=== PATIENT | female | born 1935 | race Caucasian/White ===

== ENCOUNTER 2022-11-11 22:56 | Observation (INO) | payer MEDICARE ==
[2022-11-11] MEDS ORDERED: MORPHINE SULFATE 2 MG/ML SYRINGE IVP STA (23:03)
--- NOTE | 2022-11-11 23:17 | ED ---
Lower Extremity Injury HPI - General Source: patient, EMS, RN notes reviewed Mode of arrival: EMS Limitations: no limitations <Sweta Huffman - Last Filed: 11/12/22 04:34> <Barak Willson - Last Filed: 11/12/22 06:08> - General Chief Complaint: Extremity Injury, Lower Stated Complaint: Right Hip Pain Time Seen by Provider: 11/11/22 22:59 - History of Present Illness Initial Comments: This is an 87-year-old female who presents emergency department for right hip pain. Patient states that she fell approximately one month ago he was experiencing low back pain. She had x-rays done of the lower back revealing no acute abnormalities. She has since started to experience pain to the right hip and femur area. However, tonight, the pain became so severe that she called EMS. She was given 100 and cc of fentanyl in route with little to no relief in pain. She is also starting to get nauseous from the pain and required 4 mg of Zofran. Her back pain is still present, however it is not as bothersome as the hip pain. States that she is unable to walk at this point. Patient lives alone, however her son does live near her. When the patient's son arrived, he said that she had been fine all day and was not complaining of any pain. He is unsure what may have happened this evening. Denies any fevers, chills, sore throat, cough, dyspnea, chest pain, palpitations, abdominal pain, nausea, vomiting, diarrhea, back pain, or headaches. (Sweta Huffman) - Related Data Home Medications Medication Instructions Recorded Confirmed Ergocalciferol [Vitamin D2] 50,000 unit PO Q14D 09/19/15 09/20/15 Omeprazole [PriLOSEC] 20 mg PO AC-BRKFST 09/19/15 09/20/15 Ondansetron [Zofran] 4 mg PO Q8HR 09/19/15 09/20/15 Simvastatin [Zocor] 20 mg PO DAILY 09/19/15 09/20/15 atenoloL [Tenormin] 12.5 mg PO HS 09/19/15 09/20/15 traMADol HCl [Ultram] 50 mg PO BID 09/19/15 09/20/15 Previous Rx's Medication Instructions Recorded Ondansetron Odt [Zofran Odt] 4 mg PO Q8HR PRN #10 tab 11/12/22 Allergies Allergy/AdvReac Type Severity Reaction Status Date / Time No Known Allergies Allergy Verified 09/19/15 08:47 Review of Systems ROS Other: All systems not noted in ROS Statement are negative. <Sweta Huffman - Last Filed: 11/12/22 04:34> ROS Other: All systems not noted in ROS Statement are negative. <DemetrisBarak Sunny - Last Filed: 11/12/22 06:08> ROS Statement: Those systems with pertinent positive or pertinent negative responses have been documented in the HPI. 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, received steroid injections to back on 09/18/15 for "pinched nerve" History of Any Multi-Drug Resistant Organisms: None Reported Past Surgical History: Appendectomy, Section, Orthopedic Surgery, Tubal Ligation Additional Past Surgical History / Comment(s): brain aneurym repair with clip, repair of fx lt elbow with hardware Past Anesthesia/Blood Transfusion Reactions: Postoperative Nausea & Vomiting (PONV) Past Alcohol Use History: Rare Past Drug Use History: None Reported - Past Family History Mother Family Medical History: Coronary Artery Disease (CAD) Father Family Medical History: Cancer <Sweta Huffman - Last Filed: 11/12/22 04:34> General Exam General appearance: alert, in no apparent distress Head exam: Present: atraumatic, normocephalic, normal inspection Respiratory exam: Present: normal lung sounds bilaterally. Absent: respiratory distress, wheezes, rales, rhonchi, stridor Cardiovascular Exam: Present: regular rate, normal rhythm, normal heart sounds. Absent: systolic murmur, diastolic murmur, rubs, gallop, clicks GI/Abdominal exam: Present: soft, normal bowel sounds. Absent: distended, ten derness, guarding, rebound, rigid Extremities exam: Present: other (Tenderness to palpation over the right greater trochanter. No overlying deformities, erythema, ecchymosis, or swelling.) Neurological exam: Present: alert, oriented X3, CN II-XII intact Psychiatric exam: Present: normal affect, normal mood Skin exam: Present: warm, dry, intact, normal color. Absent: rash <Sweta Huffman - Last Filed: 11/12/22 04:34> Course Vital Signs 11/11/22 11/12/22 23:01 00:56 Temperature 97 F L Pulse Rate 91 91 Respiratory 22 15 Rate Blood Pressure 192/94 158/75 O2 Sat by Pulse 98 98 Oximetry Medical Decision Making - Radiology Data Radiology results: report reviewed, image reviewed <Sweta Huffman - Last Filed: 11/12/22 04:34> - Lab Data Result diagrams: 11/12/22 04:33 11/12/22 04:33 <Barak Willson - Last Filed: 11/12/22 06:08> - Medical Decision Making This is an 87-year-old female who presents to the emergency department for right hip pain. Was pt. sent in by a medical professional or institution? @ -No Did you speak to anyone other than the patient for history? @ -EMS and her son Did you review nursing and triage notes? @ -Yes, and I agree, it is accurate with regards to the patient's symptoms. Were old charts reviewed? @ -No Differential Diagnosis? @ -Differential Hip Pain: -Fracture, dislocation, osteoarthritis, rheumatoid arthritis, septic arthritis, gout, synovitis, piriformis syndrome, bursitis, arterial occlusion, DVT, femoroacetabular inpingement, labral tear, avascular necrosis, SI joint dysfunction, this is not meant to be an all-inclusive list. X-rays interpreted by me (1pt min.)? @ -X-ray of the right hip and femur obtained. My interpretation identifies no acute fractures or dislocations. What testing was considered but not performed? (CT, X-rays, U/S, labs)? Why? @ -None What meds were considered but not given? Why? @ -None Did you discuss the management of the patient with other professionals? @ -No Did you reconcile home meds? @ -No Was smoking cessation discussed for >3mins.? @ -No Was critical care preformed (if so, how long)? @ -No Were there social determinants of health that impacted care today? How? (Homelessness, low income, unemployed, alcoholism, drug addiction, transportation, low edu. Level, literacy, decrease access to med. care, correction, rehab)? @ -No Was there de-escalation of care discussed even if they declined? (Discuss DNR or withdrawal of care, Hospice)? @ -No What co-morbidities impacted this encounter? (DM, HTN, Smoking, COPD, CAD, Cancer, CVA, Hep., AIDS, mental health diagnosis, sleep apnea, morbid obesity)? @ -GERD, HLD, HTN Was patient admitted / discharged? @ -X-ray of the right hip and femur obtained revealing no acute findings. Patient initially given Zofran and 100 mcg of Fentanyl en route by EMS. Patient states that she had no improvement in pain whatsoever. She was subsequently given 2 mg of morphine. This resolved her pain. However about 30 minutes later she started to throw up and feel sick to her stomach. She was first given Reglan. This resolved the vomiting, but she still felt ill. She was then given IV fluids, Pepcid, and another dose of Zofran. Patient was noted to be resting comfortably in the examination room. However, whenever myself or the nurse went in, she would start acting like she is in distress again. She did not have any more episodes of emesis in the emergency department, but states that she still did not feel well. Undiagnosed new problem with uncertain prognosis? @ -None Drug Therapy requiring intensive monitoring for toxicity (Heparin, Nitro, Insulin, Cardizem)? @ -None Were any procedures done? @ -None Diagnosis/symptom? @ -Right hip pain, N/V Acute, or Chronic, or Acute on Chronic? @ -Acute Uncomplicated (without systemic symptoms) or Complicated (systemic symptoms)? @ -Uncomplicated Side effects of treatment? @ -None Exacerbation, Progression, or Severe Exacerbation] @ -Not applicable Poses a threat to life or bodily function? @ -No (Sweta Huffman) She continues to have nausea and vomiting and pain with movement in the right hip. She will be observed for symptom control and IV hydration. (Barak Willson) - Lab Data Lab Results 11/12/22 11/12/22 11/12/22 Range/Units 04:33 04:33 04:33 WBC 10.9 H (3.8-10.6) k/uL RBC 3.92 (3.80-5.40) m/uL Hgb 12.5 (11.4-16.0) gm/dL Hct 38.0 (34.0-46.0) % MCV 96.9 (80.0-100.0) fL MCH 31.7 (25.0-35.0) pg MCHC 32.7 (31.0-37.0) g/dL RDW 12.5 (11.5-15.5) % Plt Count 265 (150-450) k/uL MPV 8.1 Neutrophils % 92 % Lymphocytes % 4 % Monocytes % 3 % Eosinophils % 0 % Basophils % 0 % Neutrophils # 10.1 H (1.3-7.7) k/uL Lymphocytes # 0.5 L (1.0-4.8) k/uL Monocytes # 0.3 (0-1.0) k/uL Eosinophils # 0.0 (0-0.7) k/uL Basophils # 0.0 (0-0.2) k/uL Sodium 134 L (137-145) mmol/L Potassium 3.8 (3.5-5.1) mmol/L Chloride 102 (98-107) mmol/L Carbon Dioxide 25 (22-30) mmol/L Anion Gap 7 mmol/L BUN 13 (7-17) mg/dL Creatinine 0.41 L (0.52-1.04) mg/dL Est GFR (CKD-EPI)AfAm >90 (>60 ml/min/1.73 sqM) Est GFR (CKD-EPI)NonAf >90 (>60 ml/min/1.73 sqM) Glucose 159 H (74-99) mg/dL Calcium 8.9 (8.4-10.2) mg/dL Total Bilirubin 0.7 (0.2-1.3) mg/dL AST 81 H (14-36) U/L ALT 64 H (4-34) U/L Alkaline Phosphatase 65 (38-126) U/L Total Protein 6.5 (6.3-8.2) g/dL Albumin 3.9 (3.5-5.0) g/dL Urine Color Yellow Urine Appearance Turbid H (Clear) Urine pH 8.0 (5.0-8.0) Ur Specific [place] 1.016 (1.001-1.035) Urine Protein Trace H (Negative) Urine Glucose (UA) 2+ H (Negative) Urine Ketones 1+ H (Negative) Urine Blood Small H (Negative) Urine Nitrite Negative (Negative) Urine Bilirubin Negative (Negative) Urine Urobilinogen <2.0 (<2.0) mg/dL Ur Leukocyte Esterase Large H (Negative) Urine RBC 40 H (0-5) /hpf Urine WBC 10 H (0-5) /hpf Ur Squamous Epith Cells 2 (0-4) /hpf Triple Phos Crystals Occasional H (None) /hpf Amorphous Sediment Few H (None) /hpf Urine Bacteria Many H (None) /hpf Urine Mucus Rare H (None) /hpf Disposition Is patient prescribed a controlled substance at d/c from ED?: No <Sweta Huffman - Last Filed: 11/12/22 04:34> Time of Disposition: 06:08 <Barak Willson - Last Filed: 11/12/22 06:08> Clinical Impression: Right hip pain, Nausea and vomiting Disposition[facility] Instructions (If sedation given, give patient instructions): Acute Nausea and Vomiting (ED), Hip Pain (ED) Additional Instructions: Return to the emergency department with any new, worsening, or concerning symptoms. Take Tylenol as needed for pain relief. You can take the Zofran up to every 8 hours as needed for nausea and vomiting. Slowly advance your diet as tolerated and remain well-hydrated. Follow up with your primary care provider in 1-2 days. Prescriptions: Ondansetron Odt [Zofran Odt] 4 mg PO Q8HR PRN #10 tab PRN Reason: Nausea And Vomiting Referrals: Evette Allan MD [Primary Care Provider] - 1-2 days
--- NOTE | 2022-11-11 23:38 | XR ---
EXAMINATION TYPE: XR pelvis AP view DATE OF EXAM: 11/11/2022 COMPARISON: NONE HISTORY: Fall. Pain TECHNIQUE: Single view FINDINGS: Pelvic ring is intact. Sacroiliac joints are intact. There is acetabular spurring. No fract ure seen. Actual femurs are intact. IMPRESSION: Hip joint osteoarthritis. No fracture.
--- NOTE | 2022-11-11 23:39 | XR ---
EXAMINATION TYPE: XR femur RT DATE OF EXAM: 11/11/2022 COMPARISON: NONE HISTORY: Fall. Pain TECHNIQUE: 4 views FINDINGS: There is narrowing of the knee joint spaces. No fracture seen. No sign of knee joint effusi on. There is hypertrophic spurring of the acetabulum. The proximal femur is intact. No fracture. Ther e is mild vascular calcification IMPRESSION: No acute abnormality of the right femur.
[2022-11-12] MEDS ORDERED: METOCLOPRAMIDE 5 MG/ML 2 ML VIAL IVP STA ×2 (00:01→04:23)
[2022-11-12] MEDS ORDERED: SODIUM CHLORIDE 0.9% 500 ML 500 ML IV STA ×2 (01:03→04:21)
[2022-11-12] MEDS ORDERED: ONDANSETRON 4 MG/2 ML VIAL IVP STA ×2 (02:22→04:21)
[2022-11-12] MEDS ORDERED: FAMOTIDINE 20 MG/2 ML VIAL IV STA (02:22)
[2022-11-12 04:50] LABS: Basophils % (A) 0 %; Eosinophils % (A) 0 %; HGB 12.5 gm/dL (11.4-16.0); Lymphocytes # (A) 0.5 k/uL (1.0-4.8); Lymphocytes % (A) 4 %; MCH 31.7 pg (25.0-35.0); MCHC 32.7 g/dL (31.0-37.0); MCV 96.9 fL (80.0-100.0); Mean Platelet Volume 8.1; Monocytes # (A) 0.3 k/uL (0-1.0); Monocytes % (A) 3 %; Neutrophils # (A) 10.1 k/uL (1.3-7.7); Neutrophils % (A) 92 %; Platelet Count 265 k/uL (150-450); RBC 3.92 m/uL (3.80-5.40); RDW 12.5 % (11.5-15.5); WBC 10.9 k/uL (3.8-10.6)
[2022-11-12 05:01] LABS: ALT 64 U/L (4-34); AST 81 U/L (14-36); African American GFR (CKD) >90 (>60 ml/min/1.73 sqM); Albumin 3.9 g/dL (3.5-5.0); Alkaline Phosphatase 65 U/L (38-126); Anion Gap 7 mmol/L; Blood Urea Nitrogen 13 mg/dL (7-17); Calcium 8.9 mg/dL (8.4-10.2); Carbon Dioxide 25 mmol/L (22-30); Chloride 102 mmol/L (98-107); Glucose 159 mg/dL (74-99); Non-African American GFR(CKD) >90 (>60 ml/min/1.73 sqM); Potassium 3.8 mmol/L (3.5-5.1); Sodium 134 mmol/L (137-145); Total Bilirubin 0.7 mg/dL (0.2-1.3); Total Protein 6.5 g/dL (6.3-8.2)
[2022-11-12 05:10] LABS: Amorphous Sediment,Urine Few /hpf; Appearance,Urine Turbid (Clear); Bacteria,Urine Many /hpf; Bilirubin,Urine Negative (Negative); Blood,Urine Small (Negative); Color,Urine Yellow; Glucose,Urine (UA) 2+ (Negative); Ketones,Urine 1+ (Negative); Leukocyte Esterase,Urine Large (Negative); Mucus,Urine Rare /hpf; Nitrite,Urine Negative (Negative); Protein,Urine Trace (Negative); RBC,Urine 40 /hpf (0-5); Specific Gravity,Urine 1.016 (1.001-1.035); Squamous Epithelial Cell,Urine 2 /hpf (0-4); Triple Phosphate Crystal,Urine Occasional /hpf; Urobilinogen,Urine <2.0 mg/dL (<2.0); WBC,Urine 10 /hpf (0-5)
[2022-11-12] MEDS ORDERED: cefTRIAXone IN SWFI 1,000 MG/10 ML SYRINGE IVP STA (05:49)
[2022-11-12] MEDS ORDERED: NALOXONE 0.4 MG/ML 1 ML VIAL IV PRN (06:07)
[2022-11-12] MEDS: SODIUM CHLORIDE 0.9% 1,000 ML IV SCH ×2 (06:14→22:14)
[2022-11-12] MEDS ORDERED: ALPRAZolam 0.25 MG TAB PO PRN (10:52)
[2022-11-12] MEDS: BRIMONIDINE TARTRATE 0.2% DROPS 5 ML BTL BOTH EYES SCH ×2 (12:02→19:55)
--- NOTE | 2022-11-12 12:09 | P.HPIM ---
History of Present Illness H&P Date: 11/12/22 Chief Complaint: Pain right hip This is an 87-year-old female patient of Dr. Allan who presented with complaints of right hip pain. Patient appears to be a poor historian most history is obtained from medical record. According to records patient fell approximately 1 month ago. After palpation initially was experiencing low back pain. X-ray completed showing no acute abnormalities according to records patient had severe pain last night and ended up calling EMS. Patient has medical history of GERD, hyperlipidemia, hypertension, brain aneurysm with surgical clip Route hip x-ray completed showing hip joint osteophyte is no fracture. Right femur fracture completed showing no acute abnormality of the right femur. UA positive for urinary tract infection urine culture ordered patient started on Rocephin. At this time patient seems confused but does answer questions and follows commands. Patient reports pain is definitely improved right hip. 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, received steroid injections to back on 09/18/15 for "pinched nerve" History of Any Multi-Drug Resistant Organisms: None Reported Past Surgical History: Appendectomy, Section, Orthopedic Surgery, Tubal Ligation Additional Past Surgical History / Comment(s): brain aneurym repair with clip, repair of fx lt elbow with hardware Past Anesthesia/Blood Transfusion Reactions: Postoperative Nausea & Vomiting (PONV) Past Alcohol Use History: Rare Past Drug Use History: None Reported - Past Family History Mother Family Medical History: Coronary Artery Disease (CAD) Father Family Medical History: Cancer Medications and Allergies Home Medications Medication Instructions Recorded Confirmed Type ALPRAZolam [Xanax] 0.25 mg PO BID PRN 11/12/22 11/12/22 History Brimonidine Tartrate [Alphagan P 1 drop BOTH EYES BID 11/12/22 11/12/22 History 0.2% Ophth Soln] Famotidine [Pepcid] 40 mg PO DAILY 11/12/22 11/12/22 History Latanoprost [Latanoprost 0.005%] 1 drop BOTH EYES HS 11/12/22 11/12/22 History Ondansetron Odt [Zofran Odt] 4 mg PO Q8HR PRN #10 tab 11/12/22 Rx Allergies Allergy/AdvReac Type Severity Reaction Status Date / Time No Known Allergies Allergy Verified 11/12/22 07:36 Physical Exam Vitals: Vital Signs Temp Pulse Pulse Resp BP BP Pulse Ox 11/12/22 08:00 98.7 F 82 16 150/61 97 11/12/22 07:35 97 F L 94 16 144/78 97 11/12/22 07:33 94 16 144/78 97 11/12/22 06:17 98 18 137/95 95 11/12/22 00:56 91 15 158/75 98 11/11/22 23:01 97 F L 91 22 192/94 98 Intake and Output 11/11/22 11/12/22 11/12/22 22:59 06:59 14:59 Other: Voiding Method Toilet External Catheter # Voids 2 Weight 49.895 kg Head normocephalic Neck supple Lungs clear to auscultation bilaterally no wheezing or crackles Heart regular rate and rhythm S1-S2, no rub or gallop Abdomen is soft nontender nondistended positive bowel sounds no hep atosplenomegaly Extremities no edema Neuro alert and orientated to 2 Results CBC & Chem 7: 11/12/22 04:33 11/12/22 04:33 Labs: Abnormal Lab Results - Last 24 Hours (Table) 11/12/22 11/12/22 11/12/22 Range/Units 04:33 04:33 04:33 WBC 10.9 H (3.8-10.6) k/uL Neutrophils # 10.1 H (1.3-7.7) k/uL Lymphocytes # 0.5 L (1.0-4.8) k/uL Sodium 134 L (137-145) mmol/L Creatinine 0.41 L (0.52-1.04) mg/dL Glucose 159 H (74-99) mg/dL AST 81 H (14-36) U/L ALT 64 H (4-34) U/L Urine Appearance Turbid H (Clear) Urine Protein Trace H (Negative) Urine Glucose (UA) 2+ H (Negative) Urine Ketones 1+ H (Negative) Urine Blood Small H (Negative) Ur Leukocyte Esterase Large H (Negative) Urine RBC 40 H (0-5) /hpf Urine WBC 10 H (0-5) /hpf Triple Phos Crystals Occasional H (None) /hpf Amorphous Sediment Few H (None) /hpf Urine Bacteria Many H (None) /hpf Urine Mucus Rare H (None) /hpf Assessment and Plan Assessment: 1. Right hip pain. X-rays negative for fracture 2. History of fall approximately 1 month ago 3. Urinary tract infection. Patient started on Rocephin urine culture ordered 4. History of GERD 5. History of essential hypertension 6. History of hyperlipidemia 7. History of brain aneurysm with clip DVT prophylaxis SCDs. GI prophylaxis pepcid Patient started on Rocephin Urine culture ordered PT OT and social work services consulted Time with Patient: Greater than 30 (Greater than 60% of the total time spent in counseling and coordination of care)
[2022-11-12] MEDS ORDERED: ONDANSETRON 4 MG/2 ML VIAL IVP PRN (13:21)
[2022-11-12] MEDS: ACETAMINOPHEN TAB 325 MG TAB PO PRN (19:54)
[2022-11-12] MEDS ORDERED: SODIUM CHLORIDE 0.9% 1,000 ML IV ONE (20:14)
--- NOTE | 2022-11-12 20:58 | P.CNOR ---
History of Present Illness - [facility] Consult date: 11/12/22 Requesting physician: Tanna Pedroza Consult reason: other (Right hip pain) History of present illness: History of Presenting Illness Patient is a pleasant 87-year-old female who presented to the ER due to increased pain in her right hip. Patient is a poor historian, daughter is at bedside to provide history. Daughter states that patient fell approximately 1 month ago without known injury and did not seek medical attention. Patient reports pain was intolerable last night 11/11/22 so she had called EMS to bring her into the hospital. Patient is normally ambulatory with walker. Daughter states patient does live alone, patient's son does live nearby. Daughter reports that patient does have an orthopedic history of a left elbow repair with hardware. Upon entering room patient is resting comfortably in bed. Patient currently denies any right hip pain and has been ambulatory in room with walker with staff assist to the restroom. Patient reports she is tolerating activity well. Patient is able to perform all bed exercises without any difficulty or increase in pain. She denies any TTP over right hip or numbness and tingling to her bilateral lower extremities. Daughter remains at bedside. Patient urinalysis is positive for UTI and is currently on IV antibiotics. Overall patient states she is feeling better since her arrival to the ER. Review of Systems Pertinent positives and negatives as discussed in HPI, a complete review of systems was performed and all other systems are negative. Physical Examination General: The patient is awake and alert, in no acute distress Skin: Skin is warm and dry with no obvious rashes or lesions. Eye: Pupils are equal, round and reactive to light, extra-ocular movements are intact; there is normal conjunctiva bilaterally. Neck: The neck is supple, there is no tenderness and ROM intact. Cardiovascular: There is a regular rate and rhythm. No murmur, rub or gallop is appreciated. Respiratory: Lungs are clear to auscultation, respirations are non-labored, breath sounds are equal. Gastrointestinal: Soft, non-distended, non-tender abdomen. Back: There is no tenderness to palpation in the midline, paralumbar, parathoracic or buttocks region. There is no obvious deformity. Musculoskeletal: ROM limited secondary to pain and stiffness from surgical procedure. Shoulder abduction 5/5, elbow flexors 5/5, wrist dorsiflexors 5/5. finger abductor 5/5, equine vet 5/5, hip flexor 4+/5, knee flexor 4+/5, ankle dorsiflexor 4/5, ankle plantarflexion 4/5 and extensor hallucis 4+/5. Neurological: CN 2-12 intact. There are no obvious motor or sensory deficits. Movement and coordination equal and intact. Sensory exam to light touch intact C5-T1 and intact from L2-S1. Reflexes 2/4 in bilateral upper and lower extremities. Negative Hoffmans, babinski, and clonus signs. Psychiatric: Cooperative, appropriate mood & affect, normal judgment. Assessment and Plan Right femur and pelvic xray demonstrate no acute abnormalities of the right femur, bilateral hip osteoarthritis is present. 1. Right hip pain 2. Fall from standing approximately 1 month ago 3. Urinary tract infection At this time we do not recommend any emergent/urgent orthopedic surgical interv ention. Patient may follow-up with Dr. Altamirano in office for further evaluation as needed. Orthopedics is signing off at this time. Please do not hesitate to contact us for any further questions. - Appreciate medical management - Pain management - continue per medicine - PT/OT - weightbearing as tolerated with a walker as needed. - Appreciate consult I reviewed and discussed this case with my attending Dr. Altamirano, whom has reviewed this chart and films and is in agreement with assessment and plan of care as outlined above. I have personally seen and examined the patient, performed the documentation and the assessment and plan as written. Number of minutes spent on the visit: 20m. 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, received steroid injections to back on 09/18/15 for "pinched nerve" History of Any Multi-Drug Resistant Organisms: None Reported Past Surgical History: Appendectomy, Section, Orthopedic Surgery, Tubal Ligation Additional Past Surgical History / Comment(s): brain aneurym repair with clip, repair of fx lt elbow with hardware Past Anesthesia/Blood Transfusion Reactions: Postoperative Nausea & Vomiting (PONV) Smoking Status: Never smoker Past Alcohol Use History: Rare Past Drug Use History: None Reported - Past Family History Mother Family Medical History: Coronary Artery Disease (CAD) Father Family Medical History: Cancer Medications and Allergies Home Medications Medication Instructions Recorded Confirmed Type ALPRAZolam [Xanax] 0.25 mg PO BID PRN 11/12/22 11/12/22 History Brimonidine Tartrate [Alphagan P 1 drop BOTH EYES BID 11/12/22 11/12/22 History 0.2% Ophth Soln] Famotidine [Pepcid] 40 mg PO DAILY 11/12/22 11/12/22 History Latanoprost [Latanoprost 0.005%] 1 drop BOTH EYES HS 11/12/22 11/12/22 History Ondansetron Odt [Zofran Odt] 4 mg PO Q8HR PRN #10 tab 11/12/22 Rx Allergies Allergy/AdvReac Type Severity Reaction Status Date / Time No Known Allergies Allergy Verified 11/12/22 07:36 Results - Labs Labs: Abnormal Lab Results - Last 24 Hours (Table) 11/12/22 11/12/22 11/12/22 Range/Units 04:33 04:33 04:33 WBC 10.9 H (3.8-10.6) k/uL Neutrophils # 10.1 H (1.3-7.7) k/uL Lymphocytes # 0.5 L (1.0-4.8) k/uL Sodium 134 L (137-145) mmol/L Creatinine 0.41 L (0.52-1.04) mg/dL Glucose 159 H (74-99) mg/dL AST 81 H (14-36) U/L ALT 64 H (4-34) U/L Urine Appearance Turbid H (Clear) Urine Protein Trace H (Negative) Urine Glucose (UA) 2+ H (Negative) Urine Ketones 1+ H (Negative) Urine Blood Small H (Negative) Ur Leukocyte Esterase Large H (Negative) Urine RBC 40 H (0-5) /hpf Urine WBC 10 H (0-5) /hpf Triple Phos Crystals Occasional H (None) /hpf Amorphous Sediment Few H (None) /hpf Urine Bacteria Many H (None) /hpf Urine Mucus Rare H (None) /hpf H & H 11/12/22 Range/Units 04:33 Hgb 12.5 (11.4-16.0) gm/dL Hct 38.0 (34.0-46.0) % Result Diagrams: 11/12/22 04:33 11/12/22 04:33
[2022-11-12] MEDS: LATANOPROST 0.005% OPHTH DROPS 2.5 ML BTL BOTH EYES SCH (21:02)
[2022-11-13] MEDS: ACETAMINOPHEN TAB 325 MG TAB PO PRN (10:34)
[2022-11-13] MEDS: FAMOTIDINE 20 MG TAB PO SCH (10:35)
[2022-11-13] MEDS: BRIMONIDINE TARTRATE 0.2% DROPS 5 ML BTL BOTH EYES SCH ×2 (10:37→20:52)
[2022-11-13 11:12] LABS: HCT 38.1 % (37.2-46.3); HGB 12.5 g/dL (12.0-15.0); MCH 31.6 pg (27.0-32.0); MCHC 32.8 g/dL (32.0-37.0); MCV 96.2 fL (80.0-97.0); Mean Platelet Volume 10.6 fL (9.5-12.2); NRBC Per 100 WBC 0 /100 WBCS (0.0-0.0); Platelet Count 300 X 10*3/uL (140-440); RBC 3.96 X 10*6/uL (4.10-5.20); RDW 12.8 % (11.5-14.5); WBC 15.22 X 10*3/uL (4.50-10.00)
[2022-11-13 12:02] LABS: African American GFR (CKD) 102.3 (60.0-200.0); Albumin/Globulin Ratio 1.9 (1.60-3.17); Anion Gap 11.6 mmol/L (10.00-18.00); BUN/Creat Ratio 19.4 Ratio (12.00-20.00); Blood Urea Nitrogen 9.7 mg/dL (9.0-27.0); Calcium 9.4 mg/dL (8.7-10.3); Carbon Dioxide 20.4 mmol/L (20.0-27.5); Globulin 2.1 g/dL (1.6-3.3); Non-African American GFR(CKD) 88.3 (60.0-200.0); Potassium 3.5 mmol/L (3.5-5.5); Total Bilirubin 0.8 mg/dL (0.30-1.20); Total Protein 6.1 g/dL (6.2-8.2)
[2022-11-13 12:38] LABS: Basophils # (A) 0.02 X 10*3/uL (0.00-0.10); Basophils % (A) 0.1 %; Eosinophils # (A) 0 X 10*3/uL (0.04-0.35); Eosinophils % (A) 0 %; Immature Grans, Automated 1.2 %; Lymphocytes # (A) 0.96 X 10*3/uL (0.90-5.00); Lymphocytes % (A) 6.3 %; Monocytes # (A) 1.74 X 10*3/uL (0.20-1.00); Monocytes % (A) 11.4 %; Neutrophils # (A) 12.32 X 10*3/uL (1.80-7.70); RBC Morphology NORMAL
[2022-11-13] MEDS: SODIUM CHLORIDE 0.9% 1,000 ML IV SCH ×2 (13:39→23:46)
[2022-11-13] MEDS: LATANOPROST 0.005% OPHTH DROPS 2.5 ML BTL BOTH EYES SCH (20:52)
--- NOTE | 2022-11-14 07:37 | P.CONS ---
History of Present Illness - Chief Complaint Walking difficulty, right hip pain - History of Present Illness I had the opportunity to see patient for inpatient rehab consultation. Patient admitted to Dr. yadav November 12 history of fall at home and low back and right hip pain. Pelvic x-ray demonstrated bilateral arthritis only. Seen by orthopedics, Dr. Altamirano. Has started therapies. PT reports supervision for bed mobility, modified independent with standing and minimal assist for gait 24 feet with roller walker but slow and short steps. OT reports independent with feeding, supervision for grooming and upper dressing and minimal assistance for lower dressing, bathing, toileting and functional mobility/transfers. Previous functional history as elicited from patient: 87-year-old right-handed white female who is lives in a first-floor apartment alone. Describes independent with own cooking, laundry, sitdown or standup shower and gait without device previously. Driving and assistance from son and daughter. They report history of fall one month earlier. PCP Dr. Allan. Denies tobacco or alcohol. Review of Systems Review of systems: ENT: Denies sneezes or discharge. Eyes: Denies discharge or photophobia. Cardiac: Denies chest pain or palpitation. Pulmonary: Denies cough or shortness of breath. Breast: Denies discharge or lumps. Gastrointestinal: Denies nausea, emesis, constipation, diarrhea. Genitourinary: Denies discharge or frequency. Musculoskeletal: Right hip discomfort. Neurologic: Denies motor or sensory change. Endocrine: Denies shakes or sweats. Oncology: Denies cancers. Dermatologic: Denies rash, itching, pruritus. ALLERGY/immunology: Denies sneezes, rashes. 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, received steroid injections to back on 09/18/15 for "pinched nerve" History of Any Multi-Drug Resistant Organisms: None Reported Past Surgical History: Appendectomy, Section, Orthopedic Surgery, Tubal Ligation Additional Past Surgical History / Comment(s): brain aneurym repair with clip, repair of fx lt elbow with hardware Past Anesthesia/Blood Transfusion Reactions: Postoperative Nausea & Vomiting (PONV) Smoking Status: Never smoker Past Alcohol Use History: Rare Past Drug Use History: None Reported - Past Family History Mother Family Medical History: Coronary Artery Disease (CAD) Father Family Medical History: Cancer Medications and Allergies Home Medications Medication Instructions Recorded Confirmed Type ALPRAZolam [Xanax] 0.25 mg PO BID PRN 11/12/22 11/12/22 History Brimonidine Tartrate [Alphagan P 1 drop BOTH EYES BID 11/12/22 11/12/22 History 0.2% Ophth Soln] Famotidine [Pepcid] 40 mg PO DAILY 11/12/22 11/12/22 History Latanoprost [Latanoprost 0.005%] 1 drop BOTH EYES HS 11/12/22 11/12/22 History Ondansetron Odt [Zofran Odt] 4 mg PO Q8HR PRN #10 tab 11/12/22 Rx Allergies Allergy/AdvReac Type Severity Reaction Status Date / Time No Known Allergies Allergy Verified 11/12/22 07:36 Physical Exam Vitals: Vital Signs Temp Pulse Resp BP Pulse Ox 11/14/22 01:51 97.8 F 83 18 144/75 94 L 11/13/22 19:33 98.4 F 87 18 173/71 95 11/13/22 13:40 98.3 F 88 16 128/69 96 Intake and Output 11/13/22 11/14/22 11/14/22 22:59 06:59 14:59 Intake Total 2520 Balance 2520 Intake: Intake, IV Titration 1800 Amount Sodium Chloride 0.9% 1, 1800 000 ml @ 75 mls/hr IV . [id number] [facility] Rx#:[id number] Oral 720 Other: # Voids 1 2 Skin: Atrophic, intact. General: thin build and comfortable appearance. Head: Normocephalic, atraumatic. Eyes: Symmetric. Pupils equal round. Ears: Symmetric. Hearing within normal limits. Mouth: Clear. Neck: Supple. Carotid without bruit. Cardiac: Regular rate and rhythm. Lungs: Clear anteriorly and posteriorly. Abdomen: Soft active nontender. Extremities: Normal tone. Neurological: Mental status: Alert, cooperative, pleasant. Cranial nerves: Symmetric facial tone and trapezius. Motor: Active movement all 4 limbs including right leg. Sensation: Intact throughout. DTRs: Symmetric and equal throughout. Mobility: Bed mobility with physical assistance. Results CBC & Chem 7: 11/13/22 07:23 11/13/22 07:23 Labs: Abnormal Lab Results - Last 24 Hours (Table) 11/13/22 11/13/22 Range/Units 07:23 07:23 WBC 15.22 H (4.50-10.00) X 10*3/uL RBC 3.96 L (4.10-5.20) X 10*6/uL Immature Gran # 0.18 H (0.00-0.04) X 10*3/uL Neutrophils # 12.32 H (1.80-7.70) X 10*3/uL Monocytes # 1.74 H (0.20-1.00) X 10*3/uL Eosinophils # 0 L (0.04-0.35) X 10*3/uL Creatinine 0.5 L (0.6-1.5) mg/dL AST 55 H (13-35) U/L ALT 65 H (8-44) U/L Total Protein 6.1 L (6.2-8.2) g/dL Microbiology - Last 24 Hours (Table) 11/12/22 13:04 Urine Culture - Final Urine,Clean Catch Assessment and Plan (1) Nausea and vomiting Current Visit: Yes Status: Acute Code(s): R11.2 - NAUSEA WITH VOMITING, UNSPECIFIED SNOMED Code(s): 23529151 (2) Right hip pain Current Visit: Yes Status: Acute Code(s): M25.551 - PAIN IN RIGHT HIP SNOMED Code(s): 90733815 Plan: Comments and plan: At this time safety concerns are noted. Patient's diagnoses however is that of right hip pain only in unsure if this would meet insurance criteria for admission dye DC. Has demonstrated some ability to tolerate and benefit from therapies. Due note history of fall one month earlier so do not believe the patient can be ideally safe and independent but will follow therapy closely for prognosis.
--- NOTE | 2022-11-14 09:11 | P.PN ---
Subjective Progress Note Date: 11/13/22 This is an 87-year-old female patient of Dr. Allan who presented with complaints of right hip pain. Patient appears to be a poor historian most history is obtained from medical record. According to records patient fell approximately 1 month ago. After palpation initially was experiencing low back pain. X-ray completed showing no acute abnormalities according to records patient had severe pain last night and ended up calling EMS. Patient has medical history of GERD, hyperlipidemia, hypertension, brain aneurysm with surgical clip Route hip x-ray completed showing hip joint osteophyte is no frac ture. Right femur fracture completed showing no acute abnormality of the right femur. UA positive for urinary tract infection urine culture ordered patient started on Rocephin. At this time patient seems confused but does answer questions and follows commands. Patient reports pain is definitely improved right hip. At this time will consult PT OT and social work services On 11/13/2022 patient was seen and examined on the medical floor she is alert, confused in no apparent distress there is no fever or chills no headache or dizziness no chest pain no shortness of breath no cough no nausea or vomiting no abdominal pain no diarrhea and no urinary symptoms. All x-rays were negative for any fracture, she was evaluated by orthopedic surgery who recommended physical therapy, at this time we are awaiting for placement at the rehab unit, patient has evidence of urinary tract infection, and is being treated with IV ceftriaxone, awaiting culture results. Objective - Vital Signs Vital signs: Vital Signs Temp 98.7 F 11/13/22 07:25 Pulse 88 11/13/22 07:25 Resp 16 11/13/22 07:25 BP 145/86 11/13/22 07:25 Pulse Ox 98 11/13/22 07:25 FiO2 Intake & Output 11/12/22 11/13/22 11/13/22 18:59 06:59 18:59 Intake Total 120 Output Total 200 Balance -200 120 Weight 49.895 kg Intake: Oral 120 Output: Urine 200 Other: Voiding Method Toilet Toilet External Catheter External Catheter # Voids 1 1 - Labs CBC & Chem 7: 11/13/22 07:23 11/13/22 07:23 Labs: Microbiology - Last 24 Hours (Table) 11/12/22 13:04 Urine Culture - Preliminary Urine,Clean Catch Assessment and Plan Assessment: 1. Right hip pain. X-rays negative for fracture 2. History of fall approximately 1 month ago 3. Urinary tract infection. Patient started on Rocephin urine culture ordered 4. History of GERD 5. History of essential hypertension 6. History of hyperlipidemia 7. History of brain aneurysm with clip DVT prophylaxis SCDs. GI prophylaxis pepcid Patient started on Rocephin Urine culture ordered PT OT and social work services consulted
[2022-11-14] MEDS: FAMOTIDINE 20 MG TAB PO SCH (09:53)
--- NOTE | 2022-11-14 10:22 | P.DS ---
Providers Date of admission: 11/12/22 06:07 Expected date of discharge: 11/14/22 Attending physician: Tanna Pedroza Consults: 11/12/22 12:27 Consult Physician Routine Consulting Provider: Tano Altamirano Consult Reason/Comments: right hip pain Do you want consulting provider notified?: Yes 11/13/22 21:35 Consult Physician Routine Consulting Provider: Tomasz Willingham Consult Reason/Comments: possible rehab admission Do you want consulting provider notified?: Yes Primary care physician: Evette Allan Hospital Course: Discharge diagnosis 1. Right hip pain. X-rays negative for fracture 2. History of fall approximately 1 month ago 3. Urinary tract infection. Patient started on Rocephin urine culture ordered 4. History of GERD 5. History of essential hypertension 6. History of hyperlipidemia 7. History of brain aneurysm with clip Hospital course This is an 87-year-old female patient of Dr. Allan who presented with complaints of right hip pain. Patient appears to be a poor historian most history is obtained from medical record. According to records patient fell approximately 1 month ago. After palpation initially was experiencing low back pain. X-ray completed showing no acute abnormalities according to records patient had severe pain last night and ended up calling EMS. Patient has medical history of GERD, hyperlipidemia, hypertension, brain aneurysm with surgical clip Route hip x-ray completed showing hip joint osteophyte is no fracture. Right femur fracture completed showing no acute abnormality of the right femur. UA positive for urinary tract infection urine culture ordered patient started on Rocephin. At this time patient seems confused but does answer questions and follows commands. Patient reports pain is definitely improved right hip. At this time will consult PT OT and social work services On 11/13/2022 patient was seen and examined on the medical floor she is alert, c onfused in no apparent distress there is no fever or chills no headache or dizziness no chest pain no shortness of breath no cough no nausea or vomiting no abdominal pain no diarrhea and no urinary symptoms. All x-rays were negative for any fracture, she was evaluated by orthopedic surgery who recommended physical therapy, at this time we are awaiting for placement at the rehab unit, patient has evidence of urinary tract infection, and is being treated with IV ceftriaxone, awaiting culture results. 11/14/2022 patient is alert and oriented 2. Patient appears calm and following commands. Patient will be DC'd to either [facility] for inpatient rehab. Patient will be discharged on Ceftin for 7 more days for urinary tract infection. Patient was evaluated by orthopedic services with no limitations for surgical intervention patient may follow-up outpatient with Dr. Altamirano in office if needed Patient Condition at Discharge: Stable Plan - Discharge Summary Discharge Rx Participant: Yes New Discharge Prescriptions: New Ondansetron Odt [Zofran Odt] 4 mg PO Q8HR PRN #10 tab PRN Reason: Nausea And Vomiting Cefuroxime [Ceftin] 250 mg PO BID 7 Days #14 tab Acetaminophen Tab [Tylenol] 650 mg PO Q6HR PRN tab PRN Reason: Mild Pain Or Fever > 100.5 Continue Famotidine [Pepcid] 40 mg PO DAILY ALPRAZolam [Xanax] 0.25 mg PO BID PRN PRN Reason: Anxiety Brimonidine Tartrate [Alphagan P 0.2% Ophth Soln] 1 drop BOTH EYES BID Latanoprost [Latanoprost 0.005%] 1 drop BOTH EYES HS Discharge Medication List ALPRAZolam [Xanax] 0.25 mg PO BID PRN 11/12/22 [History] Brimonidine Tartrate [Alphagan P 0.2% Ophth Soln] 1 drop BOTH EYES BID 11/12/22 [History] Famotidine [Pepcid] 40 mg PO DAILY 11/12/22 [History] Latanoprost [Latanoprost 0.005%] 1 drop BOTH EYES HS 11/12/22 [History] Ondansetron Odt [Zofran Odt] 4 mg PO Q8HR PRN #10 tab 11/12/22 [Rx] Acetaminophen Tab [Tylenol] 650 mg PO Q6HR PRN tab 11/14/22 [Rx] Cefuroxime [Ceftin] 250 mg PO BID 7 Days #14 tab 11/14/22 [Rx] Follow up Appointment(s)/Referral(s): Evette Allan MD [Primary Care Provider] - 1-2 days Patient Instructions/Handouts: Acute Nausea and Vomiting (ED), Hip Pain (ED) Activity/Diet/Wound Care/Special Instructions: Return to the emergency department with any new, worsening, or concerning symptoms. Take Tylenol as needed for pain relief. You can take the Zofran up to every 8 hours as needed for nausea and vomiting. Slowly advance your diet as tolerated and remain well-hydrated. Follow up with your primary care provider in 1-2 days. Discharge Disposition: TRANSFER TO SNF/ECF
[2022-11-14] MEDS: BRIMONIDINE TARTRATE 0.2% DROPS 5 ML BTL BOTH EYES SCH (10:39)
[2022-11-14] MEDS: SODIUM CHLORIDE 0.9% 1,000 ML IV SCH (11:35)
[2022-11-14 12:54] VITALS: BP 117/63; PULSE 83; RESP 16; TEMP 98.1
[2022-11-14 15:01] LABS: Basophils # (A) 0.02 X 10*3/uL (0.00-0.10); Basophils % (A) 0.2 %; Eosinophils # (A) 0 X 10*3/uL (0.04-0.35); Eosinophils % (A) 0 %; HCT 36.5 % (37.2-46.3); HGB 12.1 g/dL (12.0-15.0); Immature Grans, Automated 0.4 %; Lymphocytes # (A) 0.89 X 10*3/uL (0.90-5.00); Lymphocytes % (A) 7.3 %; MCH 31.5 pg (27.0-32.0); MCHC 33.2 g/dL (32.0-37.0); MCV 95.1 fL (80.0-97.0); Mean Platelet Volume 10.7 fL (9.5-12.2); Monocytes % (A) 13.2 %; NRBC Per 100 WBC 0 /100 WBCS (0.0-0.0); Neutrophils % (A) 78.9 %; Platelet Count 265 X 10*3/uL (140-440); RBC 3.84 X 10*6/uL (4.10-5.20); RDW 12.8 % (11.5-14.5); WBC 12.16 X 10*3/uL (4.50-10.00)
[2022-11-14 15:11] LABS: African American GFR (CKD) 102.3 (60.0-200.0); Albumin 3.6 g/dL (3.8-4.9); Albumin/Globulin Ratio 1.8 (1.60-3.17); Anion Gap 13.2 mmol/L (10.00-18.00); BUN/Creat Ratio 22.4 Ratio (12.00-20.00); Blood Urea Nitrogen 11.2 mg/dL (9.0-27.0); Carbon Dioxide 23.8 mmol/L (20.0-27.5); Non-African American GFR(CKD) 88.3 (60.0-200.0); Potassium 2.9 mmol/L (3.5-5.5); Total Bilirubin 0.6 mg/dL (0.30-1.20); Total Protein 5.6 g/dL (6.2-8.2)
== END 2022-11-14 13:18 ==
LOC: EC 22:56 → 4SSUR 11-12 06:07
PROVIDERS: ADMIT Internal Medicine; ATTEND Internal Medicine
DX: M25.551 Pain in right hip (principal); N39.0 Urinary tract infection, site not specified; M16.0 Bilateral primary osteoarthritis of hip; I10 Essential (primary) hypertension; K21.9 Gastro-esophageal reflux disease without esophagitis; M54.50 Low back pain, unspecified; R26.2 Difficulty in walking, not elsewhere classified; E78.5 Hyperlipidemia, unspecified; W18.30XA Fall on same level, unspecified, initial encounter; Y92.009 Unspecified place in unspecified non-institutional (private) residence as the place of occurrence of the external cause; Z79.899 Other long term (current) drug therapy; Z91.81 History of falling; Z86.79 Personal history of other diseases of the circulatory system; Z90.49 Acquired absence of other specified parts of digestive tract; Z98.891 History of uterine scar from previous surgery; Z98.890 Other specified postprocedural states; Z98.51 Tubal ligation status; Z82.49 Family history of ischemic heart disease and other diseases of the circulatory system; Z80.9 Family history of malignant neoplasm, unspecified
CPT/HCPCS: 96376 ×3; 96361 ×2; 96365; 96366; 96375 ×2; 99285; 36415; 97116; 97162; 97535; 97166; 80053 ×3; 85025 ×3; 81001; 87086; 72170; 73552; G0378 ×3; J2765; J2405; J0696 ×3; J2270

== ENCOUNTER 2023-03-29 08:52 | Emergency (ER) | payer MEDICARE ==
[2023-03-29 09:12] VITALS: RESP 18
[2023-03-29] MEDS ORDERED: SODIUM CHLORIDE 0.9% 500 ML 500 ML IV STA (09:14)
[2023-03-29] MEDS ORDERED: ACETAMINOPHEN TAB 500 MG TAB PO STA (09:15)
[2023-03-29] MEDS ORDERED: PANTOPRAZOLE 40 MG/10 ML VIAL IVP STA (09:15)
[2023-03-29] MEDS ORDERED: ONDANSETRON 4 MG/2 ML VIAL IVP STA (09:15)
--- NOTE | 2023-03-29 09:43 | ED ---
General Adult HPI - General Chief complaint: Nausea/Vomiting/Diarrhea Stated complaint: Constipation Time Seen by Provider: 03/29/23 08:54 Source: patient, RN notes reviewed, old records reviewed Mode of arrival: EMS Limitations: no limitations - History of Present Illness Initial comments: 87-year-old female presents for evaluation of constipation, lower abdominal pain, and vomiting. Paramedics report that the patient had complained of constipation and had taken a laxative which did result in bowel movement. The patient subsequently began to vomit. One total episode of vomiting which was dark in nature. Patient also complained of a headache. No fever. No chest pain. She states her abdominal pain is resolved. Patient's daughter states she vomited multiple times throughout the evening. - Related Data Home Medications Medication Instructions Recorded Confirmed Brimonidine Tartrate [Alphagan P 1 drop BOTH EYES BID 11/12/22 11/12/22 0.2% Ophth Soln] Famotidine [Pepcid] 40 mg PO DAILY 11/12/22 11/12/22 Latanoprost [Latanoprost 0.005%] 1 drop BOTH EYES HS 11/12/22 11/12/22 Previous Rx's Medication Instructions Recorded Ondansetron Odt [Zofran Odt] 4 mg PO Q8HR PRN #10 tab 11/12/22 ALPRAZolam [Xanax] 0.25 mg PO BID PRN 3 Days #6 tab 11/14/22 Acetaminophen Tab [Tylenol] 650 mg PO Q6HR PRN tab 11/14/22 Cefuroxime [Ceftin] 250 mg PO BID 7 Days #14 tab 11/14/22 Ondansetron Odt [Zofran Odt] 4 mg PO Q8HR PRN #10 tab 03/29/23 Allergies Allergy/AdvReac Type Severity Reaction Status Date / Time No Known Allergies Allergy Verified 03/29/23 09:12 Review of Systems ROS Statement: Those systems with pertinent positive or pertinent negative responses have been documented in the HPI. ROS Other: All systems not noted in ROS Statement are negative. 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, received steroid injections to back on 09/18/15 for "pinched nerve" History of Any Multi-Drug Resistant Organisms: None Reported Past Surgical History: Appendectomy, Section, Orthopedic Surgery, Tubal Ligation Additional Past Surgical History / Comment(s): brain aneurym repair with clip, repair of fx lt elbow with hardware Past Anesthesia/Blood Transfusion Reactions: Postoperative Nausea & Vomiting (PONV) Past Psychological History: No Psychological Hx Reported Smoking Status: Never smoker Past Alcohol Use History: Rare Past Drug Use History: None Reported - Past Family History Mother Family Medical History: Coronary Artery Disease (CAD) Father Family Medical History: Cancer General Exam Limitations: no limitations General appearance: alert, in no apparent distress Head exam: Present: atraumatic, normocephalic Eye exam: Present: normal appearance, PERRL ENT exam: Present: mucous membranes dry Neck exam: Present: normal inspection. Absent: tenderness, meningismus Respiratory exam: Present: normal lung sounds bilaterally. Absent: respiratory distress, wheezes Cardiovascular Exam: Present: regular rate, normal rhythm GI/Abdominal exam: Present: soft. Absent: distended, tenderness, guarding Extremities exam: Present: normal inspection, normal capillary refill. Absent: pedal edema Neurological exam: Present: alert Course Vital Signs 03/29/23 03/29/23 03/29/23 09:02 09:13 10:51 Temperature 97.5 F L Pulse Rate 85 80 86 Respiratory 18 18 18 Rate Blood Pressure 173/83 172/74 175/74 O2 Sat by Pulse 98 98 96 Oximetry 03/29/23 03/29/23 12:00 13:36 Temperature Pulse Rate 83 80 Respiratory 18 18 Rate Blood Pressure 170/83 162/78 O2 Sat by Pulse 96 96 Oximetry - Reevaluation(s) Reevaluation #1: 03/29/23 11:55 Patient reevaluated, resting comfortably, no further vomiting, no headache, no chest pain or abdominal pain. Patient states she is feeling better and is eager to be discharged home. Reevaluation #2: 03/29/23 14:42 Patient was able to eat and drink in the emergency department. She was observed for 6 hours without further vomiting. She is ambulatory. Medical Decision Making - Medical Decision Making Was pt. sent in by a medical professional or institution (, PA, AUT[employer] SALVAGE WORKER, urgent care, hospital, or residential...) When possible be specific @ -No Did you speak to anyone other than the patient for history (EMS, parent, family, police, friend...)? What history was obtained from this source @ Paramedics Did you review nursing and triage notes (agree or disagree)? Why? @ -I reviewed and agree with nursing and triage notes Were old charts reviewed (outside hosp., previous admission, EMS record, old EKG, old radiological studies, urgent care reports/EKG's, residential records)? Report findings @ -No old charts were reviewed Differential Diagnosis (chest pain, altered mental status, abdominal pain women, abdominal pain men, vaginal bleeding, weakness, fever, dyspnea, syncope, headache, dizziness, GI bleed, back pain, seizure, CVA, palpatations, mental health, musculoskeletal)? @Differential Weakness: Hypoglycemia, shock, sepsis, hyponatremia, anemia, infection, LA, ETOH, adverse medicine reaction, overdose, stroke, this is not meant to be an all-inclusive list. EKG interpreted by me (3pts min.). @ -[Sinus rhythm, normal NM interval, ventricular rate 82, QRS duration 80, QTC 433, no ST segment elevation. X-rays interpreted by me (1pt min.). @ -None done CT interpreted by me (1pt min.). @CT brain negative for intracranial hemorrhage or mass effect U/S interpreted by me (1pt. min.). @Chest x-ray and KUB negative for acute thoracic or abdominal pathology. What testing was considered but not performed or refused? (CT, X-rays, U/S, labs)? Why? @ -None What meds were considered but not given or refused? Why? @ -None Did you discuss the management of the patient with other professionals (professionals i.e. , PA, AUTO SALVAGE WORKER, lab, RT, psych nurse, social services specialist, regional operations director, teacher, national insurance officer, case assistant)? Give summary @ -No Was smoking cessation discussed for >3mins.? @ -No Was critical care preformed (if so, how long)? @ -No Were there social determinants of health that impacted care today? How? (Homelessness, low income, unemployed, alcoholism, drug addiction, transportation, low edu. Level, literacy, decrease access to med. care, assisted, r ehab)? @ -No Was there de-escalation of care discussed even if they declined (Discuss DNR or withdrawal of care, Hospice)? DNR status @ -No What co-morbidities impacted this encounter? (DM, HTN, Smoking, COPD, CAD, Cancer, CVA, ARF, Chemo, Hep., AIDS, mental health diagnosis, sleep apnea, morbid obesity)? @ -[Hypertension Was patient admitted / discharged? Hospital course, mention meds given and route, prescriptions, significant lab abnormalities, going to OR and other pertinent info. @ -[87-year-old female with an episode of lower abdominal pain followed by v omiting. No further vomiting while in the emergency department. This was described as dark, possibly coffee-ground. Patient also complained of headache. She received workup including head CT which is negative for intracranial hemorrhage or mass effect, x-ray of the chest and abdomen. There is no obstruction or intraperitoneal free air. Patient given initial symptomatic treatment with Zofran and Tylenol as well as IV fluids. No further vomiting while in the emergency department on reevaluation she feels back to normal. She states she was at a family reunion and uncertain if she had eaten something questionable. She's given return parameters. Undiagnosed new problem with uncertain prognosis? @ -No Drug Therapy requiring intensive monitoring for toxicity (Heparin, Nitro, Insulin, Cardizem)? @ -No Were any procedures done? @ -No Diagnosis/symptom? @ -Nausea vomiting Acute, or Chronic, or Acute on Chronic? @ -[Acute Uncomplicated (without systemic symptoms) or Complicated (systemic symptoms)? @ -default Side effects of treatment? @ -No Exacerbation, Progression, or Severe Exacerbation? @ -No Poses a threat to life or bodily function? How? (Chest pain, USA, LA, pneumonia, PE, COPD, DKA, ARF, appy, cholecystitis, CVA, Diverticulitis, Homicidal, Suicidal, threat to staff... and all critical care pts) @Low risk at this time - Lab Data Result diagrams: 03/29/23 09:34 03/29/23 09:34 Lab Results 03/29/23 03/29/23 03/29/23 Range/Units 09:34 09:34 09:34 WBC 8.5 (3.8-10.6) k/uL RBC 4.25 (3.80-5.40) m/uL Hgb 14.1 (11.4-16.0) gm/dL Hct 41.3 (34.0-46.0) % MCV 97.3 (80.0-100.0) fL MCH 33.3 (25.0-35.0) pg MCHC 34.2 (31.0-37.0) g/dL RDW 12.5 (11.5-15.5) % Plt Count 254 (150-450) k/uL MPV 8.6 Neutrophils % 88 % Lymphocytes % 6 % Monocytes % 5 % Eosinophils % 0 % Basophils % 0 % Neutrophils # 7.6 (1.3-7.7) k/uL Lymphocytes # 0.5 L (1.0-4.8) k/uL Monocytes # 0.4 (0-1.0) k/uL Eosinophils # 0.0 (0-0.7) k/uL Basophils # 0.0 (0-0.2) k/uL PT (9.0-12.0) sec INR (<1.2) APTT (22.0-30.0) sec Sodium 132 L (137-145) mmol/L Potassium 4.6 (3.5-5.1) mmol/L Chloride 101 (98-107) mmol/L Carbon Dioxide 24 (22-30) mmol/L Anion Gap 7 mmol/L BUN 12 (7-17) mg/dL Creatinine 0.43 L (0.52-1.04) mg/dL Est GFR (CKD-EPI)AfAm >90 (>60 ml/min/1.73 sqM) Est GFR (CKD-EPI)NonAf >90 (>60 ml/min/1.73 sqM) Glucose 148 H (74-99) mg/dL Plasma Lactic Acid Werner 1.9 (0.7-2.0) mmol/L Calcium 9.3 (8.4-10.2) mg/dL Magnesium 2.0 (1.6-2.3) mg/dL Total Bilirubin 1.3 (0.2-1.3) mg/dL AST 60 H (14-36) U/L ALT 40 H (4-34) U/L Alkaline Phosphatase 66 (38-126) U/L Total Protein 7.7 (6.3-8.2) g/dL Albumin 4.7 (3.5-5.0) g/dL Urine Color Urine Appearance (Clear) Urine pH (5.0-8.0) Ur Specific Kodak (1.001-1.035) Urine Protein (Negative) Urine Glucose (UA) (Negative) Urine Ketones (Negative) Urine Blood (Negative) Urine Nitrite (Negative) Urine Bilirubin (Negative) Urine Urobilinogen (<2.0) mg/dL Ur Leukocyte Esterase (Negative) 03/29/23 03/29/23 Range/Units 10:15 10:46 WBC (3.8-10.6) k/uL RBC (3.80-5.40) m/uL Hgb (11.4-16.0) gm/dL Hct (34.0-46.0) % MCV (80.0-100.0) fL MCH (25.0-35.0) pg MCHC (31.0-37.0) g/dL RDW (11.5-15.5) % Plt Count (150-450) k/uL MPV Neutrophils % % Lymphocytes % % Monocytes % % Eosinophils % % Basophils % % Neutrophils # (1.3-7.7) k/uL Lymphocytes # (1.0-4.8) k/uL Monocytes # (0-1.0) k/uL Eosinophils # (0-0.7) k/uL Basophils # (0-0.2) k/uL PT 9.9 (9.0-12.0) sec INR 0.9 (<1.2) APTT 21.0 L (22.0-30.0) sec Sodium (137-145) mmol/L Potassium (3.5-5.1) mmol/L Chloride (98-107) mmol/L Carbon Dioxide (22-30) mmol/L Anion Gap mmol/L BUN (7-17) mg/dL Creatinine (0.52-1.04) mg/dL Est GFR (CKD-EPI)AfAm (>60 ml/min/1.73 sqM) Est GFR (CKD-EPI)NonAf (>60 ml/min/1.73 sqM) Glucose (74-99) mg/dL Plasma Lactic Acid Werner (0.7-2.0) mmol/L Calcium (8.4-10.2) mg/dL Magnesium (1.6-2.3) mg/dL Total Bilirubin (0.2-1.3) mg/dL AST (14-36) U/L ALT (4-34) U/L Alkaline Phosphatase (38-126) U/L Total Protein (6.3-8.2) g/dL Albumin (3.5-5.0) g/dL Urine Color Light Yellow Urine Appearance Clear (Clear) Urine pH 8.0 (5.0-8.0) Ur Specific Kodak 1.009 (1.001-1.035) Urine Protein Trace H (Negative) Urine Glucose (UA) 3+ H (Negative) Urine Ketones Trace H (Negative) Urine Blood Negative (Negative) Urine Nitrite Negative (Negative) Urine Bilirubin Negative (Negative) Urine Urobilinogen <2.0 (<2.0) mg/dL Ur Leukocyte Esterase Negative (Negative) Disposition Clinical Impression: Nausea and vomiting Disposition: ADMITTED IP TO THIS HOSP Condition: Fair Instructions (If sedation given, give patient instructions): Acute Nausea and Vomiting (ED) Prescriptions: Ondansetron Odt [Zofran Odt] 4 mg PO Q8HR PRN #10 tab PRN Reason: Vomiting Is patient prescribed a controlled substance at d/c from ED?: No Referrals: Evette Allan MD [Primary Care Provider] - 1-2 days Time of Disposition: 11:57
[2023-03-29 09:59] LABS: ALT 40 U/L (4-34); AST 60 U/L (14-36); African American GFR (CKD) >90 (>60 ml/min/1.73 sqM); Albumin 4.7 g/dL (3.5-5.0); Alkaline Phosphatase 66 U/L (38-126); Anion Gap 7 mmol/L; Blood Urea Nitrogen 12 mg/dL (7-17); Calcium 9.3 mg/dL (8.4-10.2); Carbon Dioxide 24 mmol/L (22-30); Chloride 101 mmol/L (98-107); Glucose 148 mg/dL (74-99); Non-African American GFR(CKD) >90 (>60 ml/min/1.73 sqM); Sodium 132 mmol/L (137-145); Total Bilirubin 1.3 mg/dL (0.2-1.3); Total Protein 7.7 g/dL (6.3-8.2)
--- NOTE | 2023-03-29 10:03 | XR ---
EXAMINATION TYPE: XR chest 2V DATE OF EXAM: 03/29/2023 COMPARISON: 09/12/2015 HISTORY: Shortness of breath TECHNIQUE: Frontal and lateral views of the chest are obtained. FINDINGS: Scattered senescent parenchymal changes noted. Hyperinflation compatible with COPD. No evidence for infiltrate. No evidence for atelectasis. Heart size is stable. Mediastinal structures are stable and grossly unremarkable. No evidence for hilar prominence. Degenerative changes dorsal spine. IMPRESSION: 1. No evidence for acute pulmonary disease.
--- NOTE | 2023-03-29 10:03 | CT ---
EXAMINATION TYPE: CT brain wo con DATE OF EXAM: 03/29/2023 COMPARISON: None HISTORY: Weakness CT DLP: 1149.[address] of the brain was performed. The ventricles, basal cisterns and sulci overlying the cerebral convexities demonstrate mild enlargem ent. There is no evidence for intracranial hemorrhage or sulcal effacement. There is decreased attenuation about the periventricular white matter and deep white matter of both c erebral hemispheres, compatible with chronic small vessel ischemia. Differential diagnosis does inclu de demyelination. No mass effects are seen.No midline shift. Osseous calvarium is intact. If symptoms persist consider MRI. IMPRESSION: 1. Age related atrophic and chronic small vessel ischemic change without acute intracranial process s een at this time.
--- NOTE | 2023-03-29 10:04 | XR ---
EXAMINATION TYPE: XR KUB DATE OF EXAM: 03/29/2023 COMPARISON: NONE HISTORY: Pain TECHNIQUE: Single supine KUB image of the abdomen is obtained FINDINGS: Small bowel demonstrates no evidence for dilatation or air fluid levels. Gas and fecal material is seen in non-distended colon. No convincing evidence for pneumoperitoneum. No unusual calcifications. The lung bases are clear. The osseous structures are intact. IMPRESSION: 1. Overall nonobstructive bowel gas pattern.
[2023-03-29 10:08] LABS: Potassium 4.6 mmol/L (3.5-5.1)
[2023-03-29 10:14] LABS: Basophils % (A) 0 %; Eosinophils % (A) 0 %; HCT 41.3 % (34.0-46.0); HGB 14.1 gm/dL (11.4-16.0); Lymphocytes # (A) 0.5 k/uL (1.0-4.8); Lymphocytes % (A) 6 %; MCH 33.3 pg (25.0-35.0); MCHC 34.2 g/dL (31.0-37.0); MCV 97.3 fL (80.0-100.0); Mean Platelet Volume 8.6; Monocytes # (A) 0.4 k/uL (0-1.0); Monocytes % (A) 5 %; Neutrophils # (A) 7.6 k/uL (1.3-7.7); Neutrophils % (A) 88 %; Platelet Count 254 k/uL (150-450); RBC 4.25 m/uL (3.80-5.40); RDW 12.5 % (11.5-15.5); WBC 8.5 k/uL (3.8-10.6)
[2023-03-29 11:23] LABS: Appearance,Urine Clear (Clear); Bilirubin,Urine Negative (Negative); Blood,Urine Negative (Negative); Color,Urine Light Yellow; Glucose,Urine (UA) 3+ (Negative); Ketones,Urine Trace (Negative); Leukocyte Esterase,Urine Negative (Negative); Nitrite,Urine Negative (Negative); Protein,Urine Trace (Negative); Specific Gravity,Urine 1.009 (1.001-1.035); Urobilinogen,Urine <2.0 mg/dL (<2.0)
[2023-03-29 11:24] LABS: INR 0.9 (<1.2); Prothrombin Time 9.9 sec (9.0-12.0)
[2023-03-29 16:08] VITALS: BP 173/74; PULSE 82; TEMP 98
== END 2023-03-29 16:15 | disposition other institution (70) ==
LOC: EC 08:52
DX: R11.2 Nausea with vomiting, unspecified (principal); K21.9 Gastro-esophageal reflux disease without esophagitis; I10 Essential (primary) hypertension; Z79.899 Other long term (current) drug therapy
CPT/HCPCS: 36415; 93005; 80053; 83605; 83735; 85025; 85610; 85730; 81003; 71046; 74018; 70450; 99285; 96374; 96375; J2405; C9113

== ENCOUNTER 2023-04-02 10:10 | Emergency (ER) | payer MEDICARE ==
[2023-04-02 10:18] VITALS: TEMP 98.3
[2023-04-02] MEDS ORDERED: ACETAMINOPHEN TAB 325 MG TAB PO STA (10:27)
[2023-04-02] MEDS ORDERED: SODIUM CHLORIDE 0.9% 500 ML 500 ML IV STA (10:27)
[2023-04-02] MEDS ORDERED: ONDANSETRON 4 MG/2 ML VIAL IVP STA (10:28)
--- NOTE | 2023-04-02 10:38 | ED ---
Fall HPI - General Chief Complaint: Fall Stated Complaint: fall Time Seen by Provider: 04/02/23 10:18 Source: patient Mode of arrival: EMS - History of Present Illness Initial Comments: Patient is an 87-year-old female who presents to the emergency department for fall. Patient fell this morning states she tripped walking to the bathroom. She didn't hit her head on the ground and lost consciousness for an unknown amount of time. She does not use blood thinners. She denies headache, neck pain, visual symptoms, chest pain, shortness of breath. Patient reports lower abdominal pain and nausea. States she was evaluated in the emergency department a few days ago for abdominal pain but it is not improving. She denies fever, chills, vomiting. Denies urinary symptoms. She does have some diarrhea, nonbloody. She reports decreased oral intake. - Related Data Home Medications Medication Instructions Recorded Confirmed Brimonidine Tartrate [Alphagan P 1 drop BOTH EYES BID 11/12/22 11/12/22 0.2% Ophth Soln] Famotidine [Pepcid] 40 mg PO DAILY 11/12/22 11/12/22 Latanoprost [Latanoprost 0.005%] 1 drop BOTH EYES HS 11/12/22 11/12/22 Previous Rx's Medication Instructions Recorded Ondansetron Odt [Zofran Odt] 4 mg PO Q8HR PRN #10 tab 11/12/22 ALPRAZolam [Xanax] 0.25 mg PO BID PRN 3 Days #6 tab 11/14/22 Acetaminophen Tab [Tylenol] 650 mg PO Q6HR PRN tab 11/14/22 Cefuroxime [Ceftin] 250 mg PO BID 7 Days #14 tab 11/14/22 Ondansetron Odt [Zofran Odt] 4 mg PO Q8HR PRN #10 tab 03/29/23 Ondansetron Odt [Zofran Odt] 4 mg PO Q8HR PRN #10 tab 04/02/23 Allergies Allergy/AdvReac Type Severity Reaction Status Date / Time No Known Allergies Allergy Verified 03/29/23 09:12 Review of Systems ROS Statement: Those systems with pertinent positive or pertinent negative responses have been documented in the HPI. ROS Other: All systems not noted in ROS Statement are negative. 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, received steroid injections to back on 09/18/15 for "pinched ne rve" History of Any Multi-Drug Resistant Organisms: None Reported Past Surgical History: Appendectomy, Section, Orthopedic Surgery, Tubal Ligation Additional Past Surgical History / Comment(s): brain aneurym repair with clip, repair of fx lt elbow with hardware Past Anesthesia/Blood Transfusion Reactions: Postoperative Nausea & Vomiting (PONV) Past Psychological History: No Psychological Hx Reported Smoking Status: Never smoker Past Alcohol Use History: Rare Past Drug Use History: None Reported - Past Family History Mother Family Medical History: Coronary Artery Disease (CAD) Father Family Medical History: Cancer General Exam Limitations: no limitations General appearance: alert Head exam: Present: atraumatic, normocephalic, normal inspection Eye exam: Present: normal appearance, PERRL, EOMI. Absent: scleral icterus, conjunctival injection, periorbital swelling ENT exam: Present: mucous membranes dry Neck exam: Present: normal inspection. Absent: tenderness, meningismus, lymphadenopathy Respiratory exam: Present: normal lung sounds bilaterally. Absent: respiratory distress, wheezes, rales, rhonchi, stridor Cardiovascular Exam: Present: regular rate, normal rhythm, normal heart sounds. Absent: systolic murmur, diastolic murmur, rubs, gallop, clicks GI/Abdominal exam: Present: soft, tenderness (Lower mild), normal bowel sounds. Absent: distended, guarding, rebound, rigid Extremities exam: Present: normal inspection Neurological exam: Present: alert, CN II-XII intact Expanded Patient oriented to: Present: person, time. Absent: place Cranial nerves: Facial Sensation: Normal, Facial Palsy with Forehead Movement: Normal, Facial Palsy without Forehead Movement: Normal Cerebellar function: Finger to Nose: Normal, Heel to [place]: Normal Sensory exam: Upper Extremity Light Touch: Normal, Lower Extremity Light Touch: Normal Motor strength exam: RUE: 5, LUE: 5, RLE: 5, LLE: 5 Psychiatric exam: Present: normal affect, normal mood Skin exam: Present: warm, dry, intact, normal color. Absent: rash Course Vital Signs 04/02/23 04/02/23 04/02/23 10:13 10:17 11:03 Temperature 98.3 F Pulse Rate 75 93 68 Respiratory 20 20 16 Rate Blood Pressure 97/43 97/43 111/66 O2 Sat by Pulse 100 99 99 Oximetry 04/02/23 04/02/23 04/02/23 11:47 13:00 14:00 Temperature Pulse Rate 73 68 73 Respiratory 18 16 16 Rate Blood Pressure 115/68 143/69 132/60 O2 Sat by Pulse 95 97 99 Oximetry 04/02/23 15:26 Temperature Pulse Rate 68 Respiratory 16 Rate Blood Pressure 132/70 O2 Sat by Pulse 98 Oximetry Medical Decision Making - Medical Decision Making EKG taken at 10:28, interpreted by myself Sinus rhythm with frequent supraventricular premature complexes, nonspecific ST changes Ventricular rate 80, MD interval 146, QRS duration 80, QTc 457 Was pt. sent in by a medical professional or institution (, PA, ORACLE ENGINEER, urgent care, hospital, or prison...) When possible be specific @ -No Did you speak to anyone other than the patient for history (EMS, parent, family, police, friend...)? What history was obtained from this source @Daughter helped provide history about recent evaluation of abdominal pain Did you review nursing and triage notes (agree or disagree)? Why? @ -I reviewed and agree with nursing and triage notes Were old charts reviewed (outside hosp., previous admission, EMS record, old EKG, old radiological studies, urgent care reports/EKG's, prison records)? Report findings @ -No old charts were reviewed Differential Diagnosis (chest pain, altered mental status, abdominal pain women, abdominal pain men, vaginal bleeding, weakness, fever, dyspnea, syncope, headache, dizziness, GI bleed, back pain, seizure, CVA, palpatations, mental health)? @Differential Abdominal Pain Women: Appendicitis, Cholecystitis, diverticulosis, ischemic bowel, pancreatitis, hepatitis, UTI, gastroenteritis, AAA, incarcerated hernia, bowel obstruction, constipation, inflammatory bowel, hepatitis, peptic ulcer disease, splenic infarction, perforated viscus, vulvitis, ovarian torsion, PID, kidney stone, placenta abruption, this is not meant to be an all-inclusive list EKG interpreted by me (3pts min.). @ -As above X-rays interpreted by me (1pt min.). @ -None done CT interpreted by me (1pt min.). @ -No acute intracranial process or cervical spine fracture. No acute intra- abdominal process U/S interpreted by me (1pt. min.). @ -None done What testing was considered but not performed or refused? (CT, X-rays, U/S, labs)? Why? @ -None What meds were considered but not given or refused? Why? @ -None Did you discuss the management of the patient with other professionals (professionals i.e. DrChelsea, PA, ORACLE ENGINEER, lab, RT, psych nurse, social services designee, extractor machine operator, teacher, radio division officer, nurse outreach case manager)? Give summary @ -No Was smoking cessation discussed for >3mins.? @ -No Was critical care preformed (if so, how long)? @ -No Were there social determinants of health that impacted care today? How? (Homelessness, low income, unemployed, alcoholism, drug addiction, transportation, low edu. Level, literacy, decrease access to med. care, assisted, rehab)? @ -No Was there de-escalation of care discussed even if they declined (Discuss DNR or withdrawal of care, Hospice)? DNR status @ -No What co-morbidities impacted this encounter? (DM, HTN, Smoking, COPD, CAD, Cancer, CVA, ARF, Chemo, Hep., AIDS, mental health diagnosis, sleep apnea, morbid obesity)? @ -None Was patient admitted / discharged? Hospital course, mention meds given and route, prescriptions, significant lab abnormalities, going to OR and other pertinent info. @ -Patient presenting for fall. No neurological deficit on exam. Laboratory studies obtained. There is mild leukocytosis at 11.8. There is mild hypokalemia at 3.3, likely related to decreased oral intake. CT obtained interpreted by myself/radiology showing no acute intracranial process or cervical spine fracture. CT of the abdomen and pelvis shows no acute intra-abdominal process. Pain and nausea controlled. Results discussed with patient and daughter. At this time there are no diagnostic studies to explain patient's abdominal pain. She'll be discharged with Zofran. She is encouraged to take Tylenol as needed for pain and follow up with her primary care provider. She is instructed to increase oral intake as tolerated Undiagnosed new problem with uncertain prognosis? @ -No Drug Therapy requiring intensive monitoring for toxicity (Heparin, Nitro, Insulin, Cardizem)? @ -No Were any procedures done? @ -No Diagnosis/symptom? @ -Fall, abdominal pain, nausea Acute, or Chronic, or Acute on Chronic? @ Acute Uncomplicated (without systemic symptoms) or Complicated (systemic symptoms)? @ -Uncomplicated Side effects of treatment? @ -[No] Exacerbation, Progression, or Severe Exacerbation? @ -[No] Poses a threat to life or bodily function? How? (Chest pain, [place], [place], pneumonia, PE, COPD, DKA, ARF, appy, cholecystitis, CVA, Diverticulitis, Homicidal, Suicidal, threat to staff... and all critical care pts) @ -[No] Dr. Mcghee is my attending - Lab Data Result diagrams: 04/02/23 10:42 04/02/23 11:46 Lab Results 04/02/23 04/02/23 04/02/23 Range/Units 10:42 10:42 10:42 WBC 11.8 H (3.8-10.6) k/uL RBC 4.56 (3.80-5.40) m/uL Hgb 14.5 (11.4-16.0) gm/dL Hct 43.3 (34.0-46.0) % MCV 95.0 (80.0-100.0) fL MCH 31.8 (25.0-35.0) pg MCHC 33.4 (31.0-37.0) g/dL RDW 12.6 (11.5-15.5) % Plt Count 258 (150-450) k/uL MPV 8.5 Neutrophils % 76 % Lymphocytes % 12 % Monocytes % 9 % Eosinophils % 1 % Basophils % 0 % Neutrophils # 8.9 H (1.3-7.7) k/uL Lymphocytes # 1.4 (1.0-4.8) k/uL Monocytes # 1.1 H (0-1.0) k/uL Eosinophils # 0.1 (0-0.7) k/uL Basophils # 0.0 (0-0.2) k/uL Sodium (137-145) mmol/L Potassium (3.5-5.1) mmol/L Chloride (98-107) mmol/L Carbon Dioxide (22-30) mmol/L Anion Gap mmol/L BUN (7-17) mg/dL Creatinine (0.52-1.04) mg/dL Est GFR (CKD-EPI)AfAm (>60 ml/min/1.73 sqM) Est GFR (CKD-EPI)NonAf (>60 ml/min/1.73 sqM) Glucose (74-99) mg/dL Plasma Lactic Acid Werner 1.0 (0.7-2.0) mmol/L Calcium (8.4-10.2) mg/dL Magnesium (1.6-2.3) mg/dL Total Bilirubin (0.2-1.3) mg/dL AST (14-36) U/L ALT (4-34) U/L Alkaline Phosphatase (38-126) U/L Total Protein (6.3-8.2) g/dL Albumin (3.5-5.0) g/dL Urine Color Yellow Urine Appearance Cloudy H (Clear) Urine pH 6.0 (5.0-8.0) Ur Specific [place] 1.017 (1.001-1.035) Urine Protein Trace H (Negative) Urine Glucose (UA) Negative (Negative) Urine Ketones 1+ H (Negative) Urine Blood Negative (Negative) Urine Nitrite Negative (Negative) Urine Bilirubin Negative (Negative) Urine Urobilinogen <2.0 (<2.0) mg/dL Ur Leukocyte Esterase Negative (Negative) Urine RBC 2 (0-5) /hpf Urine WBC 2 (0-5) /hpf Calcium Oxalate Crystal Rare H (None) /hpf Amorphous Sediment Rare H (None) /hpf Urine Bacteria Rare H (None) /hpf Urine Mucus Rare H (None) /hpf 04/02/23 Range/Units 11:46 WBC (3.8-10.6) k/uL RBC (3.80-5.40) m/uL Hgb (11.4-16.0) gm/dL Hct (34.0-46.0) % MCV (80.0-100.0) fL MCH (25.0-35.0) pg MCHC (31.0-37.0) g/dL RDW (11.5-15.5) % Plt Count (150-450) k/uL MPV Neutrophils % % Lymphocytes % % Monocytes % % Eosinophils % % Basophils % % Neutrophils # (1.3-7.7) k/uL Lymphocytes # (1.0-4.8) k/uL Monocytes # (0-1.0) k/uL Eosinophils # (0-0.7) k/uL Basophils # (0-0.2) k/uL Sodium 135 L (137-145) mmol/L Potassium 3.3 L (3.5-5.1) mmol/L Chloride 101 (98-107) mmol/L Carbon Dioxide 30 (22-30) mmol/L Anion Gap 4 mmol/L BUN 24 H (7-17) mg/dL Creatinine 0.54 (0.52-1.04) mg/dL Est GFR (CKD-EPI)AfAm >90 (>60 ml/min/1.73 sqM) Est GFR (CKD-EPI)NonAf 86 (>60 ml/min/1.73 sqM) Glucose 100 H (74-99) mg/dL Plasma Lactic Acid Werner (0.7-2.0) mmol/L Calcium 8.7 (8.4-10.2) mg/dL Magnesium 2.0 (1.6-2.3) mg/dL Total Bilirubin 1.5 H (0.2-1.3) mg/dL AST 29 (14-36) U/L ALT 28 (4-34) U/L Alkaline Phosphatase 65 (38-126) U/L Total Protein 6.2 L (6.3-8.2) g/dL Albumin 3.7 (3.5-5.0) g/dL Urine Color Urine Appearance (Clear) Urine pH (5.0-8.0) Ur Specific [place] (1.001-1.035) Urine Protein (Negative) Urine Glucose (UA) (Negative) Urine Ketones (Negative) Urine Blood (Negative) Urine Nitrite (Negative) Urine Bilirubin (Negative) Urine Urobilinogen (<2.0) mg/dL Ur Leukocyte Esterase (Negative) Urine RBC (0-5) /hpf Urine WBC (0-5) /hpf Calcium Oxalate Crystal (None) /hpf Amorphous Sediment (None) /hpf Urine Bacteria (None) /hpf Urine Mucus (None) /hpf Disposition Clinical Impression: Fall, Abdominal pain Disposition: HOME SELF-CARE Condition: Good Instructions (If sedation given, give patient instructions): Fall Prevention for Older Adults (ED), Abdominal Pain (ED) Additional Instructions: Take Tylenol for pain. Use Zofran for nausea. Follow-up with primary care provider in one to 2 days. Return to emergency department if you experience new, concerning, or worsening symptoms Prescriptions: Ondansetron Odt [Zofran Odt] 4 mg PO Q8HR PRN #10 tab PRN Reason: Nausea Is patient prescribed a controlled substance at d/c from ED?: No Referrals: Evette Allan MD [Primary Care Provider] - 1-2 days
[2023-04-02 11:06] LABS: Basophils % (A) 0 %; Eosinophils # (A) 0.1 k/uL (0-0.7); Eosinophils % (A) 1 %; HCT 43.3 % (34.0-46.0); HGB 14.5 gm/dL (11.4-16.0); Lymphocytes # (A) 1.4 k/uL (1.0-4.8); Lymphocytes % (A) 12 %; MCH 31.8 pg (25.0-35.0); MCHC 33.4 g/dL (31.0-37.0); Mean Platelet Volume 8.5; Monocytes # (A) 1.1 k/uL (0-1.0); Monocytes % (A) 9 %; Neutrophils # (A) 8.9 k/uL (1.3-7.7); Neutrophils % (A) 76 %; Platelet Count 258 k/uL (150-450); RBC 4.56 m/uL (3.80-5.40); RDW 12.6 % (11.5-15.5); WBC 11.8 k/uL (3.8-10.6)
[2023-04-02 11:14] LABS: Amorphous Sediment,Urine Rare /hpf; Appearance,Urine Cloudy (Clear); Bacteria,Urine Rare /hpf; Bilirubin,Urine Negative (Negative); Blood,Urine Negative (Negative); Calcium Oxalate Crystals,Urine Rare /hpf; Color,Urine Yellow; Glucose,Urine (UA) Negative (Negative); Ketones,Urine 1+ (Negative); Leukocyte Esterase,Urine Negative (Negative); Mucus,Urine Rare /hpf; Nitrite,Urine Negative (Negative); Protein,Urine Trace (Negative); RBC,Urine 2 /hpf (0-5); Specific Gravity,Urine 1.017 (1.001-1.035); Urobilinogen,Urine <2.0 mg/dL (<2.0); WBC,Urine 2 /hpf (0-5)
[2023-04-02 12:26] LABS: ALT 28 U/L (4-34); AST 29 U/L (14-36); African American GFR (CKD) >90 (>60 ml/min/1.73 sqM); Albumin 3.7 g/dL (3.5-5.0); Alkaline Phosphatase 65 U/L (38-126); Anion Gap 4 mmol/L; Blood Urea Nitrogen 24 mg/dL (7-17); Calcium 8.7 mg/dL (8.4-10.2); Carbon Dioxide 30 mmol/L (22-30); Chloride 101 mmol/L (98-107); Glucose 100 mg/dL (74-99); Non-African American GFR(CKD) 86 (>60 ml/min/1.73 sqM); Potassium 3.3 mmol/L (3.5-5.1); Sodium 135 mmol/L (137-145); Total Bilirubin 1.5 mg/dL (0.2-1.3); Total Protein 6.2 g/dL (6.3-8.2)
--- NOTE | 2023-04-02 12:31 | CT ---
EXAMINATION TYPE: CT brain cspine wo con CT DLP: 1261 mGycm, Automated exposure control for dose reduction was used. DATE OF EXAM: 04/02/2023 12:22 PM COMPARISON: CT brain 03/29/2023. CLINICAL INDICATION:Female, 87 years old with history of fall; Fall TECHNIQUE: Brain: Multiple axial CT images of the brain were obtained without IV contrast. Cspine: Axial CT images from the skull base to the inferior aspect of T2 we obtained without intraven ous contrast. Coronal and sagittal reformatted images were also reviewed. FINDINGS: Brain: Extra-axial spaces: No abnormal extra-axial fluid collections. Ventricular system: Dilatation in proportion to cerebral atrophy. Cerebral parenchyma: Cerebral atrophy. No acute intraparenchymal hemorrhage or mass effect. The signh -white junction is well differentiated. Scattered hypoattenuating areas are seen within the white mat ter. Cerebellum: Unremarkable. Mass effect: No evidence of midline shift. Intracranial vasculature: Atherosclerotic calcifications of the intracranial vessels. Soft tissues: Normal. Calvarium/osseous structures: No depressed skull fracture. Post surgical changes of the skull base/oc ciput. Paranasal sinuses and mastoid air cells: Clear. Visualized orbits: Bilateral aphakia Cervical spine: Fracture: None. Osseous structures: Postsurgical changes skull base. Multilevel degenerative disc disease changes wit h endplate spurring and disc osteophyte complex's. Multilevel facet arthropathy. Vertebral alignment: Grade 1 anterolisthesis of C4-C5 and C7 on T1. Spinal canal/Neural Foramina: Disc osteophyte complexes at C4-C5, C5-C6, C6-C7 with at least mild spi nal canal stenosis. Facet joint uncovertebral joint arthropathy scattered throughout the cervical spi ne with varying degrees of neural foraminal stenosis. Neck soft tissues: Prevertebral soft tissues are within normal limits. Other: The airway is patent. Biapical pleural-parenchymal scarring. Atherosclerotic calcification of the bilateral carotid bulbs. IMPRESSION: 1. No acute intracranial process. 2. Nonspecific white matter changes, likely secondary to chronic small vessel ischemic disease. 3. No evidence of cervical spine fracture. 4. Postsurgical changes of the skull base redemonstrated. 5. Moderate multilevel degenerative disc disease.
[2023-04-02] MEDS ORDERED: POTASSIUM CHLORIDE ER 20 MEQ TAB.ER PO STA (12:58)
[2023-04-02 13:09] VITALS: RESP 16
--- NOTE | 2023-04-02 14:50 | CT ---
EXAMINATION TYPE: CT abdomen pelvis w con CT DLP: 536.2 mGycm, Automated exposure control for dose reduction was used. DATE OF EXAM: 04/02/2023 12:15 PM COMPARISON: 09/12/2015 CLINICAL INDICATION:Female, 87 years old with history of lower abd pain; Back pain and abdominal pain , nausea and vomiting 2 days ago TECHNIQUE: Axial CT of the abdomen and pelvis. Sagittal and coronal reformats were created on a Et[employer] workstation. Contrast used:90 mL of Isovue 300 with IV Contrast, (none if empty) Oral contrast used: without Oral Contrast (none if empty) FINDINGS: LOWER CHEST: Unremarkable ABDOMEN LIVER: Unremarkable GALLBLADDER AND BILE DUCTS: Unremarkable. PANCREAS: Unremarkable. SPLEEN: Unremarkable. ADRENAL GLANDS: Unremarkable. KIDNEYS AND URETERS: No evidence of hydronephrosis or renal calculus. The ureters are unremarkable. PELVIS BLADDER: Unremarkable REPRODUCTIVE: Unremarkable. ABDOMEN & PELVIS STOMACH AND BOWEL: No evidence of bowel obstruction. Small hiatal hernia.: Diverticulosis. PERITONEUM/RETROPERITONEUM: No evidence of pneumoperitoneum or free fluid. VASCULATURE: Moderate atherosclerotic calcifications are present throughout the abdominal aorta and i ts branches. No evidence of aortic aneurysm. MUSCULOSKELETAL: No acute osseous abnormalities. Severe disc degeneration changes are present through out the thoracolumbar spine. Scoliosis changes of the spine with multilevel osteophyte disc space mecca rowing and facet joint arthropathy. Moderate osteophyte formation acetabulum. LYMPH NODES: No gross evidence for lymphadenopathy. SOFT TISSUE/ABDOMINAL WALL: Unremarkable IMPRESSION: 1. No evidence for acute abdominal process. No evidence for bowel obstruction. 2. Severe degeneration changes of the spine.
[2023-04-02 15:28] VITALS: BP 132/70; PULSE 68
== END 2023-04-02 15:28 | disposition home or self-care (01) ==
LOC: EC 10:10
DX: R10.9 Unspecified abdominal pain (principal); I10 Essential (primary) hypertension; Z79.899 Other long term (current) drug therapy; W01.0XXA Fall on same level from slipping, tripping and stumbling without subsequent striking against object, initial encounter; Y92.002 Bathroom of unspecified non-institutional (private) residence as the place of occurrence of the external cause
CPT/HCPCS: 96374; 96361; 99285; 36415; 93005; 80053; 83605; 83735; 85025; 81001; 72125; 70450; 74177; J2405; Q9967

== ENCOUNTER 2023-05-28 22:14 | Inpatient (IN) | payer MEDICARE ==
[2023-05-28] MEDS ORDERED: IBUPROFEN 800 MG TAB PO STA (23:09)
[2023-05-28] MEDS ORDERED: LIDOCAINE 5% PATCH TOPICAL STA (23:09)
[2023-05-28] MEDS ORDERED: METOCLOPRAMIDE 5 MG/ML 2 ML VIAL IVP STA (23:53)
[2023-05-29] MEDS ORDERED: SODIUM CHLORIDE 0.9% 1,000 ML IV STA ×2 (01:10→03:53)
[2023-05-29 01:38] LABS: ALT 23 U/L (4-34); AST 34 U/L (14-36); African American GFR (CKD) >90 (>60 ml/min/1.73 sqM); Albumin 3.7 g/dL (3.5-5.0); Alkaline Phosphatase 75 U/L (38-126); Anion Gap 9 mmol/L; Blood Urea Nitrogen 15 mg/dL (7-17); Calcium 8.8 mg/dL (8.4-10.2); Carbon Dioxide 23 mmol/L (22-30); Chloride 105 mmol/L (98-107); Glucose 156 mg/dL (74-99); Non-African American GFR(CKD) 84 (>60 ml/min/1.73 sqM); Potassium 3.8 mmol/L (3.5-5.1); Sodium 137 mmol/L (137-145); Total Bilirubin 0.6 mg/dL (0.2-1.3); Total Protein 6.3 g/dL (6.3-8.2)
[2023-05-29 02:02] LABS: Appearance,Urine Clear (Clear); Bacteria,Urine Occasional /hpf; Bilirubin,Urine Negative (Negative); Blood,Urine Negative (Negative); Color,Urine Colorless; Glucose,Urine (UA) 2+ (Negative); Ketones,Urine 1+ (Negative); Leukocyte Esterase,Urine Large (Negative); Mucus,Urine Rare /hpf; Nitrite,Urine Negative (Negative); PH, Urine 7.5 (5.0-8.0); Protein,Urine Negative (Negative); RBC,Urine 2 /hpf (0-5); Specific Gravity,Urine 1.009 (1.001-1.035); Squamous Epithelial Cell,Urine <1 /hpf (0-4); Urobilinogen,Urine <2.0 mg/dL (<2.0); WBC,Urine 38 /hpf (0-5)
[2023-05-29 02:52] LABS: Basophils % (A) 0 %; Eosinophils % (A) 0 %; HCT 36.5 % (34.0-46.0); HGB 11.9 gm/dL (11.4-16.0); Lymphocytes # (A) 0.7 k/uL (1.0-4.8); Lymphocytes % (A) 7 %; MCH 32.8 pg (25.0-35.0); MCHC 32.6 g/dL (31.0-37.0); Mean Platelet Volume 8.5; Monocytes # (A) 0.3 k/uL (0-1.0); Monocytes % (A) 3 %; Neutrophils # (A) 9.1 k/uL (1.3-7.7); Neutrophils % (A) 89 %; Platelet Count 258 k/uL (150-450); RBC 3.63 m/uL (3.80-5.40); RDW 12.9 % (11.5-15.5); WBC 10.2 k/uL (3.8-10.6)
--- NOTE | 2023-05-29 03:00 | CT ---
EXAM: CT Lumbar Spine Without Intravenous Contrast CLINICAL HISTORY: ITS.REASON CT Reason: fall, pain TECHNIQUE: Axial computed tomography images of the lumbar spine without intravenous contrast. CTDI is 9.2 mGy and DLP is 357.9 mGy-cm. This CT exam was performed using one or more of the following dose reduction techniques: automated exposure control, adjustment of the mA and/or kV according to patient size, and/or use of iterative reconstruction technique. COMPARISON: 2015 FINDINGS: Vertebrae: No acute fracture. No subluxation. Levoscoliosis. Discs/spinal canal/neural foramina: Multilevel degenerative disc disease with mild canal stenosis at L3-4 and L4-5.. Soft tissues: Unremarkable. IMPRESSION: No acute fracture.
[2023-05-29 03:21] LABS: MCV 100.5 fL (80.0-100.0)
[2023-05-29] MEDS ORDERED: cefTRIAXone IN SWFI 1,000 MG/10 ML SYRINGE IVP STA (03:53)
[2023-05-29] MEDS ORDERED: ONDANSETRON 4 MG/2 ML VIAL IVP STA (03:53)
--- NOTE | 2023-05-29 04:14 | CT ---
EXAM: CT Pelvis Without Intravenous Contrast CLINICAL HISTORY: Fall, pain right back/hip TECHNIQUE: Axial computed tomography images of the pelvis without intravenous contrast. CTDI is 4.6 mGy and DLP is 172.4 mGy-cm. This CT exam was performed using one or more of the following dose reduction techniques: automated exposure control, adjustment of the mA and/or kV according to patient size, and/or use of iterative reconstruction technique. COMPARISON: CT pelvis 09/12/2015. FINDINGS: Bowel: Abundant stool throughout the colon. Appendix: No findings to suggest acute appendicitis. Intraperitoneal space: Unremarkable. No free air. No significant fluid collection. Bladder: Partially contracted. No stones. Reproductive: Atrophic uterus. Bones/joints: No acute fracture. No dislocation. Chronic degenerative changes the bilateral hips and lower lumbar spine. Soft tissues: Unremarkable. Vasculature: Atherosclerotic vascular calcifications. No lower abdominal aortic aneurysm. Lymph nodes: Unremarkable. No enlarged lymph nodes. IMPRESSION: No acute post-traumatic abnormality. Chronic degenerative changes of the hips and lower lumbar spine. Senescent changes.
[2023-05-29] MEDS ORDERED: NALOXONE 0.4 MG/ML 1 ML VIAL IV PRN (04:46)
[2023-05-29] MEDS ORDERED: ONDANSETRON 4 MG/2 ML VIAL IVP PRN (04:46)
[2023-05-29] MEDS ORDERED: KETOROLAC 15 MG/ML 1 ML VIAL IVP PRN (04:46)
[2023-05-29] MEDS ORDERED: ACETAMINOPHEN TAB 325 MG TAB PO PRN ×2 (04:46→09:52)
--- NOTE | 2023-05-29 05:47 | ED ---
General Adult HPI - General Chief complaint: Extremity Injury, Lower Stated complaint: Rt Hip Pain Time Seen by Provider: 05/28/23 22:28 Source: patient, EMS, RN notes reviewed, old records reviewed Mode of arrival: EMS Limitations: no limitations - History of Present Illness Initial comments: Patient is a 88-year-old female presents with Department complaining of breakthrough right hip pain. Has a history of recent falls with continued right hip pain. No recent falls after previously being evaluated for one but continues to have intermittent right hip pain. Describes it as in her right buttock with shooting pain down her right leg. Denies any lower extremity paralysis. Denies any saddle anesthesias. There is any urinary or bowel incontinence or retention. Does feel nauseous at this time as well which started throughout the day today. Has noticed some increased urination as well. Denies any abdominal pain, chest pain, shortness breath. No other acute complaints. Denies any recent falls. Presents for further evaluation at this time. - Related Data Home Medications Medication Instructions Recorded Confirmed Brimonidine Tartrate [Alphagan P 1 drop BOTH EYES BID 11/12/22 11/12/22 0.2% Ophth Soln] Famotidine [Pepcid] 40 mg PO DAILY 11/12/22 11/12/22 Latanoprost [Latanoprost 0.005%] 1 drop BOTH EYES HS 11/12/22 11/12/22 Previous Rx's Medication Instructions Recorded Ondansetron Odt [Zofran Odt] 4 mg PO Q8HR PRN #10 tab 11/12/22 ALPRAZolam [Xanax] 0.25 mg PO BID PRN 3 Days #6 tab 11/14/22 Acetaminophen Tab [Tylenol] 650 mg PO Q6HR PRN tab 11/14/22 Cefuroxime [Ceftin] 250 mg PO BID 7 Days #14 tab 11/14/22 Ondansetron Odt [Zofran Odt] 4 mg PO Q8HR PRN #10 tab 03/29/23 Ondansetron Odt [Zofran Odt] 4 mg PO Q8HR PRN #10 tab 04/02/23 Allergies Allergy/AdvReac Type Severity Reaction Status Date / Time No Known Allergies Allergy Verified 05/28/23 22:27 Review of Systems ROS Statement: Those systems with pertinent positive or pertinent negative responses have been documented in the HPI. Review of Systems: CONST: Denies fever EYES: Denies blurry vision ENT: Denies nasal congestion C/V: Denies Chest pain RESP: Denies shortness of breath GI: Denies abdominal pain : Endorses increased urinary frequency SKIN: Denies rash. MSK: Endorses right hip pain NEURO: Denies headache ROS Other: All systems not noted in ROS Statement are negative. 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, received steroid injections to back on 09/18/15 for "pinched nerve" History of Any Multi-Drug Resistant Organisms: None Reported Past Surgical History: Appendectomy, Section, Orthopedic Surgery, Tubal Ligation Additional Past Surgical History / Comment(s): brain aneurym repair with clip, repair of fx lt elbow with hardware Past Anesthesia/Blood Transfusion Reactions: Postoperative Nausea & Vomiting (PONV) Past Psychological History: No Psychological Hx Reported Smoking Status: Never smoker Past Alcohol Use History: Rare Past Drug Use History: None Reported - Past Family History Mother Family Medical History: Coronary Artery Disease (CAD) Father Family Medical History: Cancer General Exam Limitations: no limitations Course Vital Signs 05/28/23 05/29/23 22:18 01:00 Temperature 98.3 F Pulse Rate 89 86 Respiratory 16 18 Rate Blood Pressure 181/73 175/93 O2 Sat by Pulse 97 95 Oximetry Medical Decision Making - Medical Decision Making Was pt. sent in by a medical professional or institution (, PA, SPECIALTY FINISHING UTILITY PERSON, urgent care, hospital, or half-way...) When possible be specific @ -No Did you speak to anyone other than the patient for history (EMS, parent, family, police, friend...)? What history was obtained from this source @ -No Did you review nursing and triage notes (agree or disagree)? Why? @ -I reviewed and agree with nursing and triage notes Were old charts reviewed (outside hosp., previous admission, EMS record, old EKG, old radiological studies, urgent care reports/EKG's, half-way records)? Report findings @ -Old charts are reviewed. Differential Diagnosis (chest pain, altered mental status, abdominal pain women, abdominal pain men, vaginal bleeding, weakness, fever, dyspnea, syncope, headache, dizziness, GI bleed, back pain, seizure, CVA, palpatations, mental health, musculoskeletal)? @ -Differential Musculoskeletal Muscular strain, contusion, ligament sprain, fracture, arthritis, septic arthritis, bursitis, cellulitis, muscle spasm, nerve compression, DVT, arterial occlusion, herpes zoster, electrolyte abnormality, tumor.... This is not meant to be in all inclusive list EKG interpreted by me (3pts min.). @ -None done X-rays interpreted by me (1pt min.). @ -None done CT interpreted by me (1pt min.). @ -CT pelvis, lumbar spine reveals no obvious acute fracture or injury. U/S interpreted by me (1pt. min.). @ -None done What testing was considered but not performed or refused? (CT, X-rays, U/S, labs)? Why? @ -None What meds were considered but not given or refused? Why? @ -None Did you discuss the management of the patient with other professionals (professionals i.e. , PA, SPECIALTY FINISHING UTILITY PERSON, lab, RT, psych nurse, high school social studies tutor, media sales consultant, teacher, safety and security officer, case management coordinator)? Give summary @ -Discussed with patient's PCP Dr. Pedroza who accepted the patient. Was smoking cessation discussed for >3mins.? @ -No Was critical care preformed (if so, how long)? @ -No Were there social determinants of health that impacted care today? How? (Homelessness, low income, unemployed, alcoholism, drug addiction, transportation, low edu. Level, literacy, decrease access to med. care, fpc, rehab)? @ -No Was there de-escalation of care discussed even if they declined (Discuss DNR or withdrawal of care, Hospice)? DNR status @ -No What co-morbidities impacted this encounter? (DM, HTN, Smoking, COPD, CAD, Cancer, CVA, ARF, Chemo, Hep., AIDS, mental health diagnosis, sleep apnea, morbid obesity)? @ -None Was patient admitted / discharged? Hospital course, mention meds given and route, prescriptions, significant lab abnormalities, going to OR and other pe rtinent info. @ -Based on the patient's presentation and physical exam, presents complaining of right hip pain after multiple falls. An episode of emesis on the way here. Did recommend we obtain CT imaging as she is having continued pain with some radiculopathy type symptoms. She was in agreement this plan. Patient is no evidence of cauda equina syndrome at this time. Vital signs within acceptable limits. She was given analgesia medications. Imaging negative for any obvious acute injury. Patient multiple episodes of emesis in the emergency department. She also eventually told her she is been urinating frequently lately. We obtain basic labs and urinalysis which was remarkable for a UTI. Patient was started on IV Rocephin. Patient is having intractable nausea and vomiting despite multiple doses of nausea meds. Patient therefore be admitted to the hospital on IV antibiotics for UTI to observation. She was in agreement with this plan. I spoke with patient's PCP Dr. Pedroza who accepted the admission. Undiagnosed new problem with uncertain prognosis? @ -No Drug Therapy requiring intensive monitoring for toxicity (Heparin, Nitro, Insulin, Cardizem)? @ -No Were any procedures done? @ -No Diagnosis/symptom? @ -Intractable nausea and vomiting, UTI Acute, or Chronic, or Acute on Chronic? @ -Acute Uncomplicated (without systemic symptoms) or Complicated (systemic symptoms)? @ -Complicated Side effects of treatment? @ -No Exacerbation, Progression, or Severe Exacerbation? @ -No Poses a threat to life or bodily function? How? (Chest pain, USA, MS, pneumonia, PE, COPD, DKA, ARF, appy, cholecystitis, CVA, Diverticulitis, Homicidal, Suicidal, threat to staff... and all critical care pts) @ -Yes Diagnosis/symptom? @ -Right hip pain Acute, or Chronic, or Acute on Chronic? @ -Acute on chronic Uncomplicated (without systemic symptoms) or Complicated (systemic symptoms)? @ -Uncomplicated Side effects of treatment? @ -none Exacerbation, Progression, or Severe Exacerbation] @ -no Poses a threat to life or bodily function? @ -no - Lab Data Result diagrams: 05/29/23 01:15 05/29/23 01:15 Lab Results 05/29/23 05/29/23 05/29/23 Range/Units 01:15 01:15 01:15 WBC 10.2 (3.8-10.6) k/uL RBC 3.63 L (3.80-5.40) m/uL Hgb 11.9 (11.4-16.0) gm/dL Hct 36.5 (34.0-46.0) % MCV 100.5 H D (80.0-100.0) fL MCH 32.8 (25.0-35.0) pg MCHC 32.6 (31.0-37.0) g/dL RDW 12.9 (11.5-15.5) % Plt Count 258 (150-450) k/uL MPV 8.5 Neutrophils % 89 % Lymphocytes % 7 % Monocytes % 3 % Eosinophils % 0 % Basophils % 0 % Neutrophils # 9.1 H (1.3-7.7) k/uL Lymphocytes # 0.7 L (1.0-4.8) k/uL Monocytes # 0.3 (0-1.0) k/uL Eosinophils # 0.0 (0-0.7) k/uL Basophils # 0.0 (0-0.2) k/uL Sodium 137 (137-145) mmol/L Potassium 3.8 (3.5-5.1) mmol/L Chloride 105 (98-107) mmol/L Carbon Dioxide 23 (22-30) mmol/L Anion Gap 9 mmol/L BUN 15 (7-17) mg/dL Creatinine 0.58 (0.52-1.04) mg/dL Est GFR (CKD-EPI)AfAm >90 (>60 ml/min/1.73 sqM) Est GFR (CKD-EPI)NonAf 84 (>60 ml/min/1.73 sqM) Glucose 156 H (74-99) mg/dL Calcium 8.8 (8.4-10.2) mg/dL Total Bilirubin 0.6 (0.2-1.3) mg/dL AST 34 (14-36) U/L ALT 23 (4-34) U/L Alkaline Phosphatase 75 (38-126) U/L Total Protein 6.3 (6.3-8.2) g/dL Albumin 3.7 (3.5-5.0) g/dL Urine Color Colorless Urine Appearance Clear (Clear) Urine pH 7.5 (5.0-8.0) Ur Specific [place] 1.009 (1.001-1.035) Urine Protein Negative (Negative) Urine Glucose (UA) 2+ H (Negative) Urine Ketones 1+ H (Negative) Urine Blood Negative (Negative) Urine Nitrite Negative (Negative) Urine Bilirubin Negative (Negative) Urine Urobilinogen <2.0 (<2.0) mg/dL Ur Leukocyte Esterase Large H (Negative) Urine RBC 2 (0-5) /hpf Urine WBC 38 H (0-5) /hpf Urine WBC Clumps Rare H (None) /hpf Ur Squamous Epith Cells <1 (0-4) /hpf Urine Bacteria Occasional H (None) /hpf Urine Mucus Rare H (None) /hpf Disposition Clinical Impression: Right hip pain, Intractable nausea and vomiting, UTI (urinary tract infection) Disposition: ADMITTED IP TO THIS HOSP Condition: Stable Time of Disposition: 04:30
[2023-05-29 08:28] LABS: Glucose,Whole Blood 153 mg/dL (70-110)
[2023-05-29] MEDS ORDERED: ALPRAZolam 0.25 MG TAB PO PRN (09:52)
--- NOTE | 2023-05-29 10:12 | P.HPIM ---
History of Present Illness H&P Date: 05/29/23 Chief Complaint: UTI nausea vomiting This is a 88-year-old female patient of Dr. Allan who presented with increased nausea and vomiting and continued right hip pain. Patient had fall in October of this year which she underwent evaluation and x-rays negative. Patient denies any recent falls Patient has past medical history of GERD, hyperlipidemia, hypertension, brain aneurysm and surgical clip.. CT of lumbar spine completed showing no acute fracture. 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 UA positive for urinary tract infection. Patient was started on IV antibiotics. Urine culture ordered. Patient reports improvement with nausea and vomiting. Patient denies any chest pain or shortness of breath. Denies nausea vomiting or diarrhea. 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, received steroid injections to back on 09/18/15 for "pinched nerve" History of Any Multi-Drug Resistant Organisms: None Reported Past Surgical History: Appendectomy, Section, Orthopedic Surgery, Tubal Ligation Additional Past Surgical History / Comment(s): brain aneurym repair with clip, repair of fx lt elbow with hardware Past Anesthesia/Blood Transfusion Reactions: Postoperative Nausea & Vomiting (PONV) Past Psychological History: No Psychological Hx Reported Smoking Status: Never smoker Past Alcohol Use History: Rare Past Drug Use History: None Reported - Past Family History Mother Family Medical History: Coronary Artery Disease (CAD) Father Family Medical History: Cancer Medications and Allergies Home Medications Medication Instructions Recorded Confirmed Type Brimonidine Tartrate [Alphagan P 1 drop BOTH EYES BID 11/12/22 05/29/23 History 0.2% Ophth Soln] Famotidine [Pepcid] 40 mg PO DAILY 11/12/22 05/29/23 History Latanoprost [Latanoprost 0.005%] 1 drop BOTH EYES HS 11/12/22 05/29/23 History ALPRAZolam [Xanax] 0.25 mg PO BID PRN 3 Days #6 tab 11/14/22 05/29/23 Rx Acetaminophen Tab [Tylenol] 650 mg PO Q6HR PRN tab 11/14/22 05/29/23 Rx Allergies Allergy/AdvReac Type Severity Reaction Status Date / Time No Known Allergies Allergy Verified 05/29/23 07:33 Physical Exam Vitals: Vital Signs Temp Pulse Pulse Resp BP BP Pulse Ox 05/29/23 07:59 98.2 F 81 18 148/69 95 05/29/23 07:00 98.0 F 80 16 169/81 96 05/29/23 03:30 98.2 F 81 18 148/69 95 05/29/23 01:00 86 18 175/93 95 05/28/23 22:18 98.3 F 89 16 181/73 97 Intake and Output 05/28/23 05/29/23 05/29/23 22:59 06:59 14:59 Other: Weight 36.287 kg Head normocephalic Neck supple Lungs clear to auscultation bilaterally no wheezing or crackles Heart regular rate and rhythm S1-S2, no rub or gallop Abdomen is soft nontender nondistended positive bowel sounds no hepatosplenomegaly Extremities no edema Neuro alert and orientated to 3 Results CBC & Chem 7: 05/29/23 01:15 05/29/23 01:15 Labs: Abnormal Lab Results - Last 24 Hours (Table) 05/29/23 05/29/23 05/29/23 Range/Units 01:15 01:15 01:15 RBC 3.63 L (3.80-5.40) m/uL MCV 100.5 H D (80.0-100.0) fL Neutrophils # 9.1 H (1.3-7.7) k/uL Lymphocytes # 0.7 L (1.0-4.8) k/uL Glucose 156 H (74-99) mg/dL POC Glucose (mg/dL) (70-110) mg/dL Urine Glucose (UA) 2+ H (Negative) Urine Ketones 1+ H (Negative) Ur Leukocyte Esterase Large H (Negative) Urine WBC 38 H (0-5) /hpf Urine WBC Clumps Rare H (None) /hpf Urine Bacteria Occasional H (None) /hpf Urine Mucus Rare H (None) /hpf 05/29/23 Range/Units 08:27 RBC (3.80-5.40) m/uL MCV (80.0-100.0) fL Neutrophils # (1.3-7.7) k/uL Lymphocytes # (1.0-4.8) k/uL Glucose (74-99) mg/dL POC Glucose (mg/dL) 153 H (70-110) mg/dL Urine Glucose (UA) (Negative) Urine Ketones (Negative) Ur Leukocyte Esterase (Negative) Urine WBC (0-5) /hpf Urine WBC Clumps (None) /hpf Urine Bacteria (None) /hpf Urine Mucus (None) /hpf Assessment and Plan Assessment: 1. Urinary tract infection. Patient started IV Rocephin 2. Intractable nausea and vomiting. Abdomen ultrasound ordered. Patient maintained on clear liquid diet 3. Right hip pain. Computed tomography scan negative. Orthopedic consult placed 4. History of hyperlipidemia 5. History of essential hypertension 6. History of GERD DVT prophylaxis Lovenox. GI prophylaxis Protonix Patient started on IV antibiotics. Urine culture ordered Orthopedic service is consulted Abdomen ultrasound ordered Antiemetics ordered Repeat labs ordered Time with Patient: Greater than 30 (Greater than 60% of the total time spent in counseling and coordination of care)
--- NOTE | 2023-05-29 11:44 | P.CNOR ---
History of Present Illness - [facility] Consult date: 05/29/23 Requesting physician: Tanna Pedroza Consult reason: other (back and hip pain) History of present illness: Patient is an 88-year-old female who presents to the emergency department early this morning due to increasing right hip pain and low back pain. Patient does have a past medical history significant for GERD, hyperlipidemia, hypertension, brain aneurysm and surgical clip. Patient was seen at bedside's morning lying semirecumbent position orthopedics was consulted for back pain and hip pain. Patient says she has had 2 falls earlier this year. Patient cannot recall any further details due to her mental state. History was very difficult to obtain due to patient's mental state throughout the encounter. Computed tomography scan a lumbar spine does show lumbar spondylosis and degenerative disc disease as well as levoscoliosis. Negative for any fractures. CT of the pelvis does show some arthritis in the bilateral hips. Negative for any fractures/dislocations. Patient denies any previous orthopedic surgical history. Denies any recent falls in the past month. Patient says she does ambulate with a walker and cane at home. Patient denies any loss of bowel/bladder control. Patient denies any saddle anesthesia. Patient denies any numbness/tingling down the lower extremities at this time. Patient denies chest pain, fever, shortness of breath, nausea, vomiting, change in vision. 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, received steroid injections to back on 09/18/15 for "pinched nerve" History of Any Multi-Drug Resistant Organisms: None Reported Past Surgical History: Appendectomy, Section, Orthopedic Surgery, Tubal Ligation Additional Past Surgical History / Comment(s): brain aneurym repair with clip, repair of fx lt elbow with hardware Past Anesthesia/Blood Transfusion Reactions: Postoperative Nausea & Vomiting (PONV) Past Psychological History: No Psychological Hx Reported Smoking Status: Never smoker Past Alcohol Use History: Rare Past Drug Use History: None Reported - Past Family History Mother Family Medical History: Coronary Artery Disease (CAD) Father Family Medical History: Cancer Medications and Allergies Home Medications Medication Instructions Recorded Confirmed Type Brimonidine Tartrate [Alphagan P 1 drop BOTH EYES BID 03/29/23 10/13/23 History 0.2% Ophth Soln] Famotidine [Pepcid] 40 mg PO DAILY 11/12/22 05/29/23 History Latanoprost [Latanoprost 0.005%] 1 drop BOTH EYES HS 11/12/22 05/29/23 History ALPRAZolam [Xanax] 0.25 mg PO BID PRN 3 Days #6 tab 11/14/22 05/29/23 Rx Acetaminophen Tab [Tylenol] 650 mg PO Q6HR PRN tab 11/14/22 05/29/23 Rx Allergies Allergy/AdvReac Type Severity Reaction Status Date / Time No Known Allergies Allergy Verified 05/29/23 07:33 Physical Examination *Physical exam difficult to perform due to patient's mental state* Inspection: None positive for scoliosis. Negative for any open fractures, significant wounds/erythema/ecchymosis. Sensation: Equal, symmetric, bilaterally intact throughout the upper and lower extremities Palpation: Positive for fair amount of tenderness to palpation throughout lumbar spine at midline and at the bilateral SI joints. Nontender to palpation throughout rest of exam. Range of motion: Patient does have good range of motion throughout bilateral upper extremities on exam. Patient was unable to plantarflex ankles on exam, unable to follow questions. Patient did have good range of motion throughout rest of bilateral lower extremities on exam. Motor: 4/5 in all major motor groups. Limited due to patient's state Neurovascular: Radial pulses intact bilaterally. Cap refill under 3 seconds in digits upper extremities Special tests: Negative Homans bilaterally. Negative Alfa bilaterally. Negative clonus bilaterally. Results - Labs Labs: Abnormal Lab Results - Last 24 Hours (Table) 05/29/23 05/29/23 05/29/23 Range/Units 01:15 01:15 01:15 RBC 3.63 L (3.80-5.40) m/uL MCV 100.5 H D (80.0-100.0) fL Neutrophils # 9.1 H (1.3-7.7) k/uL Lymphocytes # 0.7 L (1.0-4.8) k/uL Glucose 156 H (74-99) mg/dL POC Glucose (mg/dL) (70-110) mg/dL Urine Glucose (UA) 2+ H (Negative) Urine Ketones 1+ H (Negative) Ur Leukocyte Esterase Large H (Negative) Urine WBC 38 H (0-5) /hpf Urine WBC Clumps Rare H (None) /hpf Urine Bacteria Occasional H (None) /hpf Urine Mucus Rare H (None) /hpf 05/29/23 Range/Units 08:27 RBC (3.80-5.40) m/uL MCV (80.0-100.0) fL Neutrophils # (1.3-7.7) k/uL Lymphocytes # (1.0-4.8) k/uL Glucose (74-99) mg/dL POC Glucose (mg/dL) 153 H (70-110) mg/dL Urine Glucose (UA) (Negative) Urine Ketones (Negative) Ur Leukocyte Esterase (Negative) Urine WBC (0-5) /hpf Urine WBC Clumps (None) /hpf Urine Bacteria (None) /hpf Urine Mucus (None) /hpf H & H 05/29/23 Range/Units 01:15 Hgb 11.9 (11.4-16.0) gm/dL Hct 36.5 (34.0-46.0) % Result Diagrams: 05/29/23 01:15 05/29/23 01:15 - Diagnostic results Comments: Pelvis CT negative for any fractures/dislocations. 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 CT Scan - lumbar: report reviewed, image reviewed (CT of lumbar spine does reveal degenerative disc disease as well as spondylosis and mild canal stenosis. We will scoliosis present. Negative for any fractures/dislocations.) Assessment and Plan Assessment: 1. Low back pain; degenerative disc disease; lumbar spondylosis; mild lumbar canal stenosis; levoscoliosis; right hip pain Plan: 1. Low back pain; degenerative disc disease; lumbar spondylosis; mild lumbar canal stenosis; levoscoliosis; right hip pain - patient stable at bedside this morning. CT of lumbar spine does reveal degenerative disc disease as well as spondylosis and mild canal stenosis. We will scoliosis present. Negative for any fractures/dislocations. Computed tomography scan of the pelvis negative for any fractures/dislocations. Mild osteoarthritis of bilateral hips. History and physical exam were very limited due to patient's mental state throughout the encounter. At this time we are not recommending any emergent/urgent orthopedic surgical intervention. Patient may benefit from oral pain medication. Plan for PT/OT daily. Weightbearing as tolerated with walker and assistance as needed. If patient does not improve with these conservative measures, pain management consult may be needed. We'll continue to be available as needed to see the patient during her stay in hospital. 2. Appreciate medical management 3. Pain management - Tylenol 4. DVT prophylaxis - Lovenox 5. GI prophylaxis - Pepcid; Protonix 6. PT/OT - weightbearing as tolerated with walker and assistance 7. Encourage incentive spirometer use 8. Appreciate consult Time with Patient: Less than 30
[2023-05-29 15:28] VITALS: BMI 13.7
--- NOTE | 2023-05-29 16:06 | US ---
EXAMINATION TYPE: US abdomen limited DATE OF EXAM: 05/29/2023 COMPARISON: NONE CLINICAL INDICATION: Female, 88 years old with history of Intractable nausea vomiting; TECHNIQUE: Multiple sonographic images of the right upper quadrant are obtained. FINDINGS: EXAM MEASUREMENTS: Liver Length: 15.0 cm Gallbladder Wall: 0.18 cm CBD: 0.22 cm Right Kidney: 8.9 x 3.6 x 3.6 cm CORDWAINER NOTES: Pancreas: Obscured by bowel gas Liver: wnl Gallbladder: Appears wnl Evidence for sonographic Peck's sign: no CBD: wnl Right Kidney: wnl Difficult exam; patient presents with altered mental status; constant movement throughout duration of exam IMPRESSION: Limited exam demonstrates no definite acute process.
[2023-05-29] MEDS: BRIMONIDINE TARTRATE 0.2% DROPS 5 ML BTL BOTH EYES SCH (21:27)
[2023-05-29] MEDS: LATANOPROST 0.005% OPHTH DROPS 2.5 ML BTL BOTH EYES SCH (21:27)
[2023-05-30] MEDS: SODIUM CHLORIDE 0.9% 1,000 ML IV SCH ×4 (00:56→21:02)
[2023-05-30] MEDS: PANTOPRAZOLE 40 MG TABLET PO SCH (06:38)
[2023-05-30] MEDS: FAMOTIDINE 20 MG TAB PO SCH (09:25)
[2023-05-30] MEDS: ENOXAPARIN 40 MG/0.4 ML SYRINGE SQ SCH (09:26)
[2023-05-30 09:45] LABS: BUN/Creat Ratio 28.75 Ratio (12.00-20.00); Blood Urea Nitrogen 11.5 mg/dL (9.0-27.0); Calcium 9.5 mg/dL (8.7-10.3); Carbon Dioxide 22.4 mmol/L (21.6-31.8); Chloride 93 mmol/L (96-109); Glucose 120 mg/dL (70-110); Potassium 3.2 mmol/L (3.5-5.5); Sodium 131 mmol/L (135-145)
[2023-05-30 09:50] LABS: HCT 41.7 % (37.2-46.3); MCH 31.9 pg (27.0-32.0); MCHC 33.6 d/dL (32.0-37.0); Mean Platelet Volume 10.5 FL (9.5-12.2); NRBC Per 100 WBC 0 X 10*3/uL (0.00-0.01); Platelet Count 371 X 10*3/uL (140-440); RBC 4.39 X 10*6/uL (4.10-5.20); WBC 16.13 X 10*3/uL (4.50-10.00)
--- NOTE | 2023-05-30 10:27 | P.PN ---
Subjective Progress Note Date: 05/30/23 Fatuma Ramirez, is a 88-year-old female patient of Dr. Allan who presented with increased nausea and vomiting and continued right hip pain. Patient had fall in October of this year which she underwent evaluation and x-rays negative. Patient denies any recent falls Patient has past medical history of GERD, hyperlipidemia, hypertension, brain aneurysm and surgical clip.. CT of lumbar spine completed showing no acute fracture. 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 UA positive for urinary tract infection. Patient was started on IV antibiotics. Urine culture ordered. Patient reports improvement with nausea and vomiting. Patient denies any chest pain or shortness of breath. Denies nausea vomiting or diarrhea. Patient denies any urinary burning or frequency. On 05/30/2023 patient was seen and examined on the medical floor she is alert, confused in no apparent distress there is no fever or chills no headache or dizziness no chest pain no shortness of breath no cough patient has been on clear liquid diet there is no nausea or vomiting she is still having some abdominal discomfort she is still complaining of hip pain otherwise she denies any complaints at this time. At this time will advance diet to regular diet, consult PT and OT, and infectious disease consultation due to significant increase in white blood count since yesterday. Will continue to follow. Objective - Vital Signs Vital signs: Vital Signs Temp 98.0 F 05/30/23 07:00 Pulse 82 05/30/23 08:00 Resp 15 05/30/23 08:00 BP 187/78 05/30/23 07:00 Pulse Ox 98 05/30/23 07:00 FiO2 Intake & Output 05/29/23 05/30/23 05/30/23 18:59 06:59 18:59 Intake Total 240 Balance 240 Weight 36.287 kg Intake: Oral 240 Other: Voiding Method Bedside Commode Bedside Commode Bedside Commode Diaper # Voids 1 2 # Bowel Movements 2 - Exam In general patient is alert confused in no apparent distress Head normocephalic and atraumatic Neck supple no JVD no goiter Lungs clear to auscultation bilaterally no wheezing or crackles Heart regular rate and rhythm S1-S2, no rub or gallop Abdomen is soft nontender nondistended positive bowel sounds no hepatosplenomega ly Extremities no edema Neuro no gross focal deficit - Labs CBC & Chem 7: 05/30/23 05:44 05/30/23 05:44 Labs: Abnormal Lab Results - Last 24 Hours (Table) 05/30/23 05/30/23 Range/Units 05:44 05:44 WBC 16.13 H (4.50-10.00) X 10*3/uL Sodium 131 L (135-145) mmol/L Potassium 3.2 L (3.5-5.5) mmol/L Chloride 93 L (96-109) mmol/L Anion Gap 15.60 H (4.00-12.00) mmol/L Creatinine 0.4 L (0.6-1.5) mg/dL BUN/Creatinine Ratio 28.75 H (12.00-20.00) Ratio Glucose 120 H (70-110) mg/dL Assessment and Plan Assessment: 1. Sepsis, as evidenced by leukocytosis white blood count 16.13, and mental status changes, source of infection could be related to urinary tract infection versus intra-abdominal sepsis. 2. Urinary tract infection. Patient started IV Rocephin 3. Intractable nausea and vomiting. Abdomen ultrasound ordered. Patient maintained on clear liquid diet 4. Right hip pain. Computed tomography scan negative. Orthopedic consult placed 5. History of hyperlipidemia 6. History of essential hypertension 7. History of GERD DVT prophylaxis Lovenox. GI prophylaxis Protonix Patient started on IV antibiotics. Urine culture ordered, white blood count is up from 10-16,000 in the last 24 hours will add infectious disease consultation Orthopedic service is consulted Abdomen ultrasound ordered Antiemetics ordered Repeat labs ordered
[2023-05-30] MEDS: BRIMONIDINE TARTRATE 0.2% DROPS 5 ML BTL BOTH EYES SCH ×2 (10:37→21:03)
[2023-05-30 10:43] LABS: Basophils # (A) 0.05 X 10*3/uL (0.00-0.10); Basophils % (A) 0.3 %; Eosinophils # (A) 0 X 10*3/uL (0.04-0.35); Eosinophils % (A) 0 %; Lymphocytes # (A) 1.16 X 10*3/uL (0.90-5.00); Lymphocytes % (A) 7.2 %; Monocytes # (A) 1.76 X 10*3/uL (0.20-1.00); Monocytes % (A) 10.9 %; Neutrophils % (A) 81.2 %; RBC Morphology Normal (Normal)
[2023-05-30] MEDS: LATANOPROST 0.005% OPHTH DROPS 2.5 ML BTL BOTH EYES SCH (21:03)
[2023-05-31] MEDS: SODIUM CHLORIDE 0.9% 1,000 ML IV SCH ×3 (05:34→18:04)
[2023-05-31] MEDS: PANTOPRAZOLE 40 MG TABLET PO SCH (06:00)
[2023-05-31] MEDS: BRIMONIDINE TARTRATE 0.2% DROPS 5 ML BTL BOTH EYES SCH ×2 (09:02→21:53)
[2023-05-31] MEDS: ENOXAPARIN 40 MG/0.4 ML SYRINGE SQ SCH (09:02)
[2023-05-31] MEDS: FAMOTIDINE 20 MG TAB PO SCH (09:02)
[2023-05-31 09:03] LABS: Basophils # (A) 0.05 X 10*3/uL (0.00-0.10); Basophils % (A) 0.5 %; Eosinophils # (A) 0.01 X 10*3/uL (0.04-0.35); Eosinophils % (A) 0.1 %; HCT 40.4 % (37.2-46.3); HGB 13.3 d/dL (12.0-15.0); Lymphocytes # (A) 2.03 X 10*3/uL (0.90-5.00); Lymphocytes % (A) 20.3 %; MCH 31.5 pg (27.0-32.0); MCHC 32.9 d/dL (32.0-37.0); MCV 95.7 FL (80.0-97.0); Mean Platelet Volume 10.4 FL (9.5-12.2); Monocytes # (A) 1.59 X 10*3/uL (0.20-1.00); Monocytes % (A) 15.9 %; NRBC Per 100 WBC 0 X 10*3/uL (0.00-0.01); Neutrophils # (A) 6.29 X 10*3/uL (1.80-7.70); Neutrophils % (A) 62.7 %; Platelet Count 321 X 10*3/uL (140-440); RBC 4.22 X 10*6/uL (4.10-5.20); RDW 13.2 % (11.5-14.5); WBC 10.02 X 10*3/uL (4.50-10.00)
[2023-05-31 09:19] LABS: ALT 24 U/L (8-44); AST 33 U/L (13-35); Albumin 3.6 d/dL (3.8-4.9); Albumin/Globulin Ratio 1.71 Ratio (1.60-3.17); Alkaline Phosphatase 66 U/L (41-126); BUN/Creat Ratio 24.14 Ratio (12.00-20.00); Blood Urea Nitrogen 16.9 mg/dL (9.0-27.0); Calcium 8.9 mg/dL (8.7-10.3); Carbon Dioxide 22.6 mmol/L (21.6-31.8); Chloride 106 mmol/L (96-109); Globulin 2.1 d/dL (1.6-3.3); Glucose 96 mg/dL (70-110); Sodium 139 mmol/L (135-145); Total Bilirubin 0.9 mg/dL (0.3-1.2); Total Protein 5.7 d/dL (6.2-8.2)
--- NOTE | 2023-05-31 09:30 | P.PN ---
Subjective Progress Note Date: 05/31/23 Fatuma Ramirez, is a 88-year-old female patient of Dr. Allan who presented with increased nausea and vomiting and continued right hip pain. Patient had fall in October of this year which she underwent evaluation and x-rays negative. Patient denies any recent falls Patient has past medical history of GERD, hyperlipidemia, hypertension, brain aneurysm and surgical clip.. CT of lumbar spine completed showing no acute fracture. 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 UA positive for urinary tract infection. Patient was started on IV antibiotics. Urine culture ordered. Patient reports improvement with nausea and vomiting. Patient denies any chest pain or shortness of breath. Denies nausea vomiting or diarrhea. Patient denies any urinary burning or frequency. On 05/30/2023 patient was seen and examined on the medical floor she is alert, confused in no apparent distress there is no fever or chills no headache or dizziness no chest pain no shortness of breath no cough patient has been on clear liquid diet there is no nausea or vomiting she is still having some abdominal discomfort she is still complaining of hip pain otherwise she denies any complaints at this time. At this time will advance diet to regular diet, consult PT and OT, and infectious disease consultation due to significant increase in white blood count since yesterday. Will continue to follow. On 05/31/2023 patient was seen and examined on the medical floor she is alert and oriented 3 in no apparent distress there is significant improvement in her mental status since yesterday there is no fever or chills no headache or dizziness no chest pain no shortness of breath no cough no nausea or vomiting no abdominal pain no diarrhea no burning with urination no frequency or urgency and no hematuria. Objective - Vital Signs Vital signs: Vital Signs Temp 98.6 F 05/31/23 07:00 Pulse 82 05/31/23 07:00 Resp 16 05/31/23 07:00 BP 149/65 05/31/23 07:00 Pulse Ox 97 05/31/23 07:00 FiO2 Intake & Output 05/30/23 05/31/23 05/31/23 18:59 06:59 18:59 Other: Voiding Method Bedside Commode Bedside Commode Diaper Diaper # Voids 2 1 # Bowel Movements 2 - Exam In general patient is alert confused in no apparent distress Head normocephalic and atraumatic Neck supple no JVD no goiter Lungs clear to auscultation bilaterally no wheezing or crackles Heart regular rate and rhythm S1-S2, no rub or gallop Abdomen is soft nontender nondistended positive bowel sounds no hep atosplenomegaly Extremities no edema Neuro no gross focal deficit - Labs CBC & Chem 7: 05/31/23 05:54 05/31/23 05:54 Labs: Abnormal Lab Results - Last 24 Hours (Table) 05/30/23 05/30/23 05/31/23 Range/Units 05:44 05:44 05:54 WBC 16.13 H 10.02 H (4.50-10.00) X 10*3/uL Neutrophils # 13.10 H (1.80-7.70) X 10*3/uL Monocytes # 1.76 H 1.59 H (0.20-1.00) X 10*3/uL Eosinophils # 0 L 0.01 L (0.04-0.35) X 10*3/uL Sodium 131 L (135-145) mmol/L Potassium 3.2 L (3.5-5.5) mmol/L Chloride 93 L (96-109) mmol/L Anion Gap 15.60 H (4.00-12.00) mmol/L Creatinine 0.4 L (0.6-1.5) mg/dL BUN/Creatinine Ratio 28.75 H (12.00-20.00) Ratio Glucose 120 H (70-110) mg/dL Microbiology - Last 24 Hours (Table) 05/29/23 01:15 Urine Culture - Preliminary Urine,Catheterized Gram Neg Bacilli Assessment and Plan Assessment: 1. Sepsis, as evidenced by leukocytosis white blood count 16.13, and mental status changes, source of infection could be related to urinary tract infection versus intra-abdominal sepsis. 2. Urinary tract infection. Patient started IV Rocephin 3. Intractable nausea and vomiting. Abdomen ultrasound ordered. Patient maintained on clear liquid diet 4. Right hip pain. Computed tomography scan negative. Orthopedic consult placed 5. History of hyperlipidemia 6. History of essential hypertension 7. History of GERD DVT prophylaxis Lovenox. GI prophylaxis Protonix Patient started on IV antibiotics. Urine culture ordered, white blood count is up from 10-16,000 in the last 24 hours will add infectious disease consultation Orthopedic service is consulted Abdomen ultrasound ordered Antiemetics ordered Repeat labs ordered
[2023-05-31] MEDS: LATANOPROST 0.005% OPHTH DROPS 2.5 ML BTL BOTH EYES SCH (21:52)
[2023-06-01] MEDS: SODIUM CHLORIDE 0.9% 1,000 ML IV SCH ×3 (01:02→17:06)
[2023-06-01] MEDS: PANTOPRAZOLE 40 MG TABLET PO SCH (06:52)
[2023-06-01] MEDS: BRIMONIDINE TARTRATE 0.2% DROPS 5 ML BTL BOTH EYES SCH ×2 (09:41→21:58)
[2023-06-01] MEDS: ENOXAPARIN 40 MG/0.4 ML SYRINGE SQ SCH (09:42)
[2023-06-01] MEDS: FAMOTIDINE 20 MG TAB PO SCH (09:42)
[2023-06-01] MEDS ORDERED: Potassium Replacement Protocol 1 EACH MISC MISCELLANE PRN ×2 (14:43)
[2023-06-01] MEDS: POTASSIUM CHLORIDE ER 20 MEQ TAB.ER PO SCH ×2 (15:24→17:06)
[2023-06-01 15:37] LABS: Basophils % (A) 0 %; Eosinophils # (A) 0.2 k/uL (0-0.7); Eosinophils % (A) 3 %; HCT 34.6 % (34.0-46.0); HGB 11.5 gm/dL (11.4-16.0); Lymphocytes # (A) 1.2 k/uL (1.0-4.8); Lymphocytes % (A) 16 %; MCH 32.1 pg (25.0-35.0); MCHC 33.3 g/dL (31.0-37.0); MCV 96.4 fL (80.0-100.0); Mean Platelet Volume 8.5; Monocytes # (A) 0.8 k/uL (0-1.0); Monocytes % (A) 11 %; Neutrophils # (A) 5.1 k/uL (1.3-7.7); Neutrophils % (A) 68 %; Platelet Count 252 k/uL (150-450); RBC 3.59 m/uL (3.80-5.40); RDW 13.4 % (11.5-15.5); WBC 7.6 k/uL (3.8-10.6)
[2023-06-01 15:42] LABS: ALT 20 U/L (4-34); AST 23 U/L (14-36); African American GFR (CKD) >90 (>60 ml/min/1.73 sqM); Albumin 2.6 g/dL (3.5-5.0); Albumin/Globulin Ratio 1.1; Alkaline Phosphatase 53 U/L (38-126); Anion Gap 5 mmol/L; Blood Urea Nitrogen 14 mg/dL (7-17); Calcium 8.2 mg/dL (8.4-10.2); Carbon Dioxide 26 mmol/L (22-30); Chloride 105 mmol/L (98-107); Globulin 2.4 g/dL; Glucose 111 mg/dL (74-99); Non-African American GFR(CKD) 87 (>60 ml/min/1.73 sqM); Sodium 136 mmol/L (137-145); Total Bilirubin 0.3 mg/dL (0.2-1.3)
[2023-06-01 15:46] LABS: Potassium 2.4 mmol/L (3.5-5.1)
--- NOTE | 2023-06-01 16:29 | P.PN ---
Subjective Progress Note Date: 06/01/23 Fatuma Ramirez, is a 88-year-old female patient of Dr. Allan who presented with increased nausea and vomiting and continued right hip pain. Patient had fall in October of this year which she underwent evaluation and x-rays negative. Patient denies any recent falls Patient has past medical history of GERD, hyperlipidemia, hypertension, brain aneurysm and surgical clip.. CT of lumbar spine completed showing no acute fracture. 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 UA positive for urinary tract infection. Patient was started on IV antibiotics. Urine culture ordered. Patient reports improvement with nausea and vomiting. Patient denies any chest pain or shortness of breath. Denies nausea vomiting or diarrhea. Patient denies any urinary burning or frequency. On 05/30/2023 patient was seen and examined on the medical floor she is alert, confused in no apparent distress there is no fever or chills no headache or dizziness no chest pain no shortness of breath no cough patient has been on clear liquid diet there is no nausea or vomiting she is still having some abdominal discomfort she is still complaining of hip pain otherwise she denies any complaints at this time. At this time will advance diet to regular diet, consult PT and OT, and infectious disease consultation due to significant increase in white blood count since yesterday. Will continue to follow. On 05/31/2023 patient was seen and examined on the medical floor she is alert and oriented 3 in no apparent distress there is significant improvement in her mental status since yesterday there is no fever or chills no headache or dizziness no chest pain no shortness of breath no cough no nausea or vomiting no abdominal pain no diarrhea no burning with urination no frequency or urgency and no hematuria. On 06/01/2023 patient was seen and examined on the medical floor she is more somnolent today but arousable and answering questions appropriately when awake there is no fever or chills no headache or dizziness no chest pain no shortness of breath no cough no nausea or vomiting no abdominal pain no diarrhea and no urinary symptoms. Potassium level is low we are correcting with protocol. Will recheck in a.m. Objective - Vital Signs Vital signs: Vital Signs Temp 98.1 F 06/01/23 09:42 Pulse 78 06/01/23 09:42 Resp 16 06/01/23 07:00 BP 127/90 06/01/23 09:42 Pulse Ox 98 06/01/23 09:42 FiO2 Intake & Output 05/31/23 06/01/23 06/01/23 18:59 06:59 18:59 Intake Total 598 Balance 598 Intake: Oral 598 Other: Voiding Method Bedside Commode Bedside Commode Diaper Diaper Diaper # Voids 2 3 - Exam In general patient is alert confused in no apparent distress Head normocephalic and atraumatic Neck supple no JVD no goiter Lungs clear to auscultation bilaterally no wheezing or crackles Heart regular rate and rhythm S1-S2, no rub or gallop Abdomen is soft nontender nondistended positive bowel sounds no hepatosplenomegaly Extremities no edema Neuro no gross focal deficit - Labs CBC & Chem 7: 06/01/23 15:16 06/01/23 15:16 Labs: Microbiology - Last 24 Hours (Table) 05/29/23 01:15 Urine Culture - Final Urine,Catheterized Escherichia coli Assessment and Plan Assessment: 1. Sepsis, as evidenced by leukocytosis white blood count 16.13, and mental status changes, source of infection could be related to urinary tract infection versus intra-abdominal sepsis. 2. Urinary tract infection. Patient started IV Rocephin 3. Intractable nausea and vomiting. Abdomen ultrasound ordered. Patient maintained on clear liquid diet 4. Right hip pain. Computed tomography scan negative. Orthopedic consult placed 5. History of hyperlipidemia 6. History of essential hypertension 7. History of GERD DVT prophylaxis Lovenox. GI prophylaxis Protonix Patient started on IV antibiotics. Urine culture ordered, white blood count is up from 10-16,000 in the last 24 hours will add infectious disease consultation Orthopedic service is consulted Abdomen ultrasound ordered Antiemetics ordered Repeat labs ordered
[2023-06-01] MEDS: LATANOPROST 0.005% OPHTH DROPS 2.5 ML BTL BOTH EYES SCH (21:58)
[2023-06-02] MEDS: SODIUM CHLORIDE 0.9% 1,000 ML IV SCH ×2 (01:07→08:46)
[2023-06-02] MEDS: PANTOPRAZOLE 40 MG TABLET PO SCH (06:08)
[2023-06-02] MEDS: FAMOTIDINE 20 MG TAB PO SCH (08:46)
[2023-06-02] MEDS: ENOXAPARIN 40 MG/0.4 ML SYRINGE SQ SCH (08:46)
[2023-06-02] MEDS: BRIMONIDINE TARTRATE 0.2% DROPS 5 ML BTL BOTH EYES SCH (08:48)
--- NOTE | 2023-06-02 08:52 | P.PN ---
Subjective Progress Note Date: 06/02/23 Fatuma Ramirez, is a 88-year-old female patient of Dr. Allan who presented with increased nausea and vomiting and continued right hip pain. Patient had fall in October of this year which she underwent evaluation and x-rays negative. Patient denies any recent falls Patient has past medical history of GERD, hyperlipidemia, hypertension, brain aneurysm and surgical clip.. CT of lumbar spine completed showing no acute fracture. 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 UA positive for urinary tract infection. Patient was started on IV antibiotics. Urine culture ordered. Patient reports improvement with nausea and vomiting. Patient denies any chest pain or shortness of breath. Denies nausea vomiting or diarrhea. Patient denies any urinary burning or frequency. On 05/30/2023 patient was seen and examined on the medical floor she is alert, confused in no apparent distress there is no fever or chills no headache or dizziness no chest pain no shortness of breath no cough patient has been on clear liquid diet there is no nausea or vomiting she is still having some abdominal discomfort she is still complaining of hip pain otherwise she denies any complaints at this time. At this time will advance diet to regular diet, consult PT and OT, and infectious disease consultation due to significant increase in white blood count since yesterday. Will continue to follow. On 05/31/2023 patient was seen and examined on the medical floor she is alert and oriented 3 in no apparent distress there is significant improvement in her mental status since yesterday there is no fever or chills no headache or dizziness no chest pain no shortness of breath no cough no nausea or vomiting no abdominal pain no diarrhea no burning with urination no frequency or urgency and no hematuria. On 06/01/2023 patient was seen and examined on the medical floor she is more somnolent today but arousable and answering questions appropriately when awake there is no fever or chills no headache or dizziness no chest pain no shortness of breath no cough no nausea or vomiting no abdominal pain no diarrhea and no urinary symptoms. Potassium level is low we are correcting with protocol. Will recheck in a.m. On 06/02/2023 patient is alert and oriented 3. Patient appears more awake today. Patient denies chest pain or shortness of breath. Patient denies nausea vomiting or diarrhea. Patient denies last currently pending. Current vital signs temp 93, height 1, start 16, blood pressure 105/73 with pulse ox 97% on room air Objective - Vital Signs Vital signs: Vital Signs Temp 98.3 F 06/02/23 07:11 Pulse 71 06/02/23 07:11 Resp 16 06/02/23 07:11 BP 105/73 06/02/23 07:11 Pulse Ox 97 06/02/23 07:11 FiO2 Intake & Output 06/01/23 06/02/23 06/02/23 18:59 06:59 18:59 Other: Voiding Method Diaper Toilet Diaper # Voids 2 2 - Exam In general patient is alert confused in no apparent distress Head normocephalic and atraumatic Neck supple no JVD no goiter Lungs clear to auscultation bilaterally no wheezing or crackles Heart regular rate and rhythm S1-S2, no rub or gallop Abdomen is soft nontender nondistended positive bowel sounds no hepatosplenomegaly Extremities no edema Neuro no gross focal deficit - Labs CBC & Chem 7: 06/01/23 15:16 06/01/23 15:16 Labs: Abnormal Lab Results - Last 24 Hours (Table) 06/01/23 06/01/23 Range/Units 15:16 15:16 RBC 3.59 L (3.80-5.40) m/uL Sodium 136 L (137-145) mmol/L Potassium 2.4 L* (3.5-5.1) mmol/L Glucose 111 H (74-99) mg/dL Calcium 8.2 L (8.4-10.2) mg/dL Total Protein 5.0 L (6.3-8.2) g/dL Albumin 2.6 L (3.5-5.0) g/dL Assessment and Plan Assessment: 1. Sepsis, as evidenced by leukocytosis white blood count 16.13, and mental status changes, source of infection could be related to urinary tract infection versus intra-abdominal sepsis. 2. Urinary tract infection. Patient started IV Rocephin 3. Intractable nausea and vomiting. Abdomen ultrasound ordered. Patient maintained on clear liquid diet 4. Right hip pain. Computed tomography scan negative. Orthopedic consult placed 5. History of hyperlipidemia 6. History of essential hypertension 7. History of GERD DVT prophylaxis Lovenox. GI prophylaxis Protonix Patient started on IV antibiotics. Urine culture ordered, white blood count is up from 10-16,000 in the last 24 hours will add infectious disease consultation Antiemetics ordered Repeat labs ordered
--- NOTE | 2023-06-02 09:08 | P.DS ---
Providers Date of admission: 05/30/23 10:46 Expected date of discharge: 06/02/23 Attending physician: Tanna Pedroza Consults: 05/29/23 10:43 Consult Physician Routine Consulting Provider: Remy Santos Consult Reason/Comments: back and hip pain Do you want consulting provider notified?: Yes Primary care physician: Evette Allan Hospital Course: Discharge diagnosis 1. Sepsis, as evidenced by leukocytosis white blood count 16.13, and mental status changes, source of infection could be related to urinary tract infection versus intra-abdominal sepsis. 2. Urinary tract infection. Patient started IV Rocephin 3. Intractable nausea and vomiting. Abdomen ultrasound ordered. Patient maintained on clear liquid diet 4. Right hip pain. Computed tomography scan negative. Orthopedic consult placed 5. History of hyperlipidemia 6. History of essential hypertension 7. History of GERD Hospital course Fatuma Ramirez, is a 88-year-old female patient of Dr. Allan who presented with increased nausea and vomiting and continued right hip pain. Patient had fall in October of this year which she underwent evaluation and x-rays negative. Patient denies any recent falls Patient has past medical history of GERD, hyperlipidemia, hypertension, brain aneurysm and surgical clip.. CT of lumbar spine completed showing no acute fracture. 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 UA positive for urinary tract infection. Patient was started on IV antibiotics. Urine culture ordered. Patient reports improvement with nausea and vomiting. Patient denies any chest pain or shortness of breath. Denies nausea vomiting or diarrhea. Patient denies any urinary burning or frequency. On 05/30/2023 patient was seen and examined on the medical floor she is alert, confused in no apparent distress there is no fever or chills no headache or dizziness no chest pain no shortness of breath no cough patient has been on clear liquid diet there is no nausea or vomiting she is still having some abdominal discomfort she is still complaining of hip pain otherwise she denies any complaints at this time. At this time will advance diet to regular diet, consult PT and OT, and infectious disease consultation due to significant increase in white blood count since yesterday. Will continue to follow. On 05/31/2023 patient was seen and examined on the medical floor she is alert and oriented 3 in no apparent distress there is significant improvement in her mental status since yesterday there is no fever or chills no headache or dizziness no chest pain no shortness of breath no cough no nausea or vomiting no abdominal pain no diarrhea no burning with urination no frequency or urgency and no hematuria. On 06/01/2023 patient was seen and examined on the medical floor she is more somnolent today but arousable and answering questions appropriately when awake there is no fever or chills no headache or dizziness no chest pain no shortness of breath no cough no nausea or vomiting no abdominal pain no diarrhea and no urinary symptoms. Potassium level is low we are correcting with protocol. Will recheck in a.m. On 06/02/2023 patient is alert and oriented 3. Patient appears more awake today. Patient denies chest pain or shortness of breath. Patient denies nausea vomiting or diarrhea. Patient denies last currently pending. Current vital signs temp 93, height 1, start 16, blood pressure 105/73 with pulse ox 97% on room air Patient to be discharged home with home health care. Patient will be DC'd on Ceftin for one week follow-up with PCP for further management Patient Condition at Discharge: Stable Plan - Discharge Summary Discharge Rx Participant: No New Discharge Prescriptions: New cefUROXime axetiL [Cefuroxime] 500 mg PO BID 7 Days #14 tab Continue Famotidine [Pepcid] 40 mg PO DAILY ALPRAZolam [Xanax] 0.25 mg PO BID PRN 3 Days #6 tab PRN Reason: Anxiety Brimonidine Tartrate [Alphagan P 0.2% Ophth Soln] 1 drop BOTH EYES BID Latanoprost [Latanoprost 0.005%] 1 drop BOTH EYES HS Acetaminophen Tab [Tylenol] 650 mg PO Q6HR PRN tab PRN Reason: Mild Pain Or Fever > 100.5 Discharge Medication List Brimonidine Tartrate [Alphagan P 0.2% Ophth Soln] 1 drop BOTH EYES BID 11/12/22 [History] Famotidine [Pepcid] 40 mg PO DAILY 11/12/22 [History] Latanoprost [Latanoprost 0.005%] 1 drop BOTH EYES HS 11/12/22 [History] ALPRAZolam [Xanax] 0.25 mg PO BID PRN 3 Days #6 tab 11/14/22 [Rx] Acetaminophen Tab [Tylenol] 650 mg PO Q6HR PRN tab 11/14/22 [Rx] cefUROXime axetiL [Cefuroxime] 500 mg PO BID 7 Days #14 tab 06/02/23 [Rx] Follow up Appointment(s)/Referral(s): Evette Allan MD [Primary Care Provider] - 1 Week Activity/Diet/Wound Care/Special Instructions: Activity as tolerated Diet heart healthy Discharge Disposition: HOME SELF-CARE
[2023-06-02 11:18] LABS: Basophils # (A) 0.06 X 10*3/uL (0.00-0.10); Basophils % (A) 0.7 %; Eosinophils # (A) 0.64 X 10*3/uL (0.04-0.35); HCT 34.6 % (37.2-46.3); HGB 11.6 d/dL (12.0-15.0); Lymphocytes # (A) 1.38 X 10*3/uL (0.90-5.00); Lymphocytes % (A) 15.1 %; MCH 31.6 pg (27.0-32.0); MCHC 33.5 d/dL (32.0-37.0); MCV 94.3 FL (80.0-97.0); Mean Platelet Volume 10.3 FL (9.5-12.2); Monocytes # (A) 1.41 X 10*3/uL (0.20-1.00); Monocytes % (A) 15.4 %; NRBC Per 100 WBC 0 X 10*3/uL (0.00-0.01); Neutrophils # (A) 5.63 X 10*3/uL (1.80-7.70); Neutrophils % (A) 61.5 %; Platelet Count 263 X 10*3/uL (140-440); RBC 3.67 X 10*6/uL (4.10-5.20); RDW 13.3 % (11.5-14.5); WBC 9.15 X 10*3/uL (4.50-10.00)
[2023-06-02 11:28] LABS: ALT 20 U/L (8-44); AST 17 U/L (13-35); Albumin 3.2 d/dL (3.8-4.9); Albumin/Globulin Ratio 1.78 Ratio (1.60-3.17); Alkaline Phosphatase 59 U/L (41-126); Blood Urea Nitrogen 8.6 mg/dL (9.0-27.0); Calcium 8.4 mg/dL (8.7-10.3); Carbon Dioxide 28.9 mmol/L (21.6-31.8); Chloride 106 mmol/L (96-109); Globulin 1.8 d/dL (1.6-3.3); Glucose 88 mg/dL (70-110); Potassium 2.9 mmol/L (3.5-5.5); Sodium 142 mmol/L (135-145); Total Bilirubin 0.4 mg/dL (0.3-1.2)
[2023-06-02] MEDS: POTASSIUM CHLORIDE ER 20 MEQ TAB.ER PO SCH ×4 (11:48→14:57)
[2023-06-02 14:53] VITALS: BP 118/58; PULSE 72; RESP 15; TEMP 98.6
--- NOTE | 2023-06-04 12:39 | CDI ---
Documentation Clarification Form Date: 06/04/2023 12:05:14 PM From: Zara Chambers RN, CCDS Admit Date: 05/30/2023 10:46:00 AM Patient Name: Fatuma Ramirez Visit Number: [id number] Discharge Date: 06/02/2023 04:08:00 PM ATTENTION: The Clinical Documentation Specialists (CDI) and [facility] Coding Staff appreciate your assistance in clarifying documentation. Please respond to the clarification below the line at the bottom and electronically sign. The CDI & [facility] Coding staff will review the response and follow-up if needed. Please note: Queries are made part of the Legal Health Record. If you have any questions, please contact the author of this message via ITS. Dr. Tanna Pedroza Your patient has the documented symptom of altered mental status, confusion in the ED assessment on 05/29/23 and your ongoing progress notes starting on 05/30/23. Additional clarification regarding the etiology/cause of this symptom is requested. History/Risk Factors: Clinical Indicators: 88-year-old female presents with right hip pain. Has noticed some increased urination as well. Patient is having intractable nausea and vomiting despite multiple doses of nausea meds. She was ruled in for UTI. 05/29 Labs: WBC 10.3 05/30 Labs WBC 16.13 Neutrophils 13.10 181/73 89 16 98.2 97% RA 05/30 Attn: Sepsis, as evidenced by leukocytosis white blood count 16.13, and mental status changes, source of infection could be related to urinary tract infection versus intra-abdominal sepsis. Treatment: Neuro checks per protocol Rocephin 1 GM IVPB Q 24 HRS .9NS 1,000 ML Bolus X2 05/29 then 130 ML/HR 05/29-06/02 Please clarify the etiology of the symptom of Altered Mental Status: [ x ] Metabolic encephalopathy due to urinary tract infection [ ] Other condition (please specify [ ] Unable to determine (Template Last Revised: September 2020) MTDD
== END 2023-06-02 16:08 | disposition home health service (06) | DRG 872 ==
LOC: EC 22:14 → 6NMEDSUR 05-29 04:47 → OBSVTOIN 05-30 10:46
PROVIDERS: ADMIT Internal Medicine; ATTEND Internal Medicine
DX: A41.9 Sepsis, unspecified organism (principal); N39.0 Urinary tract infection, site not specified; E78.5 Hyperlipidemia, unspecified; M47.816 Spondylosis without myelopathy or radiculopathy, lumbar region; M48.061 Spinal stenosis, lumbar region without neurogenic claudication; R11.2 Nausea with vomiting, unspecified; I10 Essential (primary) hypertension; M25.551 Pain in right hip; B96.20 Unspecified Escherichia coli [E. coli] as the cause of diseases classified elsewhere; M41.86 Other forms of scoliosis, lumbar region; R29.6 Repeated falls; Z91.81 History of falling; Z82.49 Family history of ischemic heart disease and other diseases of the circulatory system; Z98.51 Tubal ligation status
CPT/HCPCS: 36415; 51701; 51702; 72131; 72192; 76705; 80048; 80053; 81001; 85025; 87077; 87086; 87186; 93005; 96361; 96374; 96375; 99285

== ENCOUNTER 2023-06-17 11:28 | Inpatient (IN) | payer MEDICARE ==
--- NOTE | 2023-06-17 11:53 | ED ---
Altered Mental Status HPI - General Chief Complaint: Altered Mental Status Stated Complaint: Fall,No Thinners Time Seen by Provider: 06/17/23 11:32 Source: patient, EMS, RN notes reviewed Mode of arrival: EMS Limitations: altered mental status - History of Present Illness Initial Comments: This is an 88-year-old female who presents to the emergency department for altered mental status. Patient was last known well at 8 PM last night. Patient lives alone and family went to check on her today. When they arrived they found her on the ground covered in vomit and she appeared to be altered and incoherent. It is not clear how long the patient was down for. Patient is currently alert to herself, location, and time. She also knows who the president is. However, she is very slow to respond and fairly sleepy. She is also mumbling. She currently has no complaints and denies any pain. Her family states that she was also found half nude and they are concerned about her going home, as she lives alone. MD Complaint: altered mental status - Related Data Home Medications Medication Instructions Recorded Confirmed Brimonidine Tartrate [Alphagan P 1 drop BOTH EYES BID 11/12/22 06/17/23 0.2% Ophth Soln] Famotidine [Pepcid] 40 mg PO DAILY 11/12/22 06/17/23 Latanoprost [Latanoprost 0.005%] 1 drop BOTH EYES HS 11/12/22 06/17/23 Bumetanide [BUMEX] 0.5 mg PO DAILY 06/17/23 06/17/23 Mirabegron [Myrbetriq] 25 mg PO DAILY 06/17/23 06/17/23 Previous Rx's Medication Instructions Recorded ALPRAZolam [Xanax] 0.25 mg PO BID PRN 3 Days #6 tab 11/14/22 Acetaminophen Tab [Tylenol] 650 mg PO Q6HR PRN tab 11/14/22 Allergies Allergy/AdvReac Type Severity Reaction Status Date / Time No Known Allergies Allergy Verified 06/17/23 14:18 Review of Systems ROS Statement: Those systems with pertinent positive or pertinent negative responses have been documented in the HPI. ROS Other: All systems not noted in ROS Statement are negative. 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, received steroid injections to back on 09/18/15 for "pinched ner ve" History of Any Multi-Drug Resistant Organisms: None Reported Past Surgical History: Appendectomy, Section, Orthopedic Surgery, Tubal Ligation Additional Past Surgical History / Comment(s): brain aneurym repair with clip, repair of fx lt elbow with hardware Past Anesthesia/Blood Transfusion Reactions: Postoperative Nausea & Vomiting (PONV) Past Psychological History: No Psychological Hx Reported Smoking Status: Never smoker Past Alcohol Use History: Rare Past Drug Use History: None Reported - Past Family History Mother Family Medical History: Coronary Artery Disease (CAD) Father Family Medical History: Cancer General Exam Limitations: altered mental status General appearance: alert, lethargic Head exam: Present: atraumatic, normocephalic, normal inspection Eye exam: Present: normal appearance, PERRL, EOMI. Absent: scleral icterus, conjunctival injection, periorbital swelling Respiratory exam: Present: normal lung sounds bilaterally. Absent: respiratory distress, wheezes, rales, rhonchi, stridor Cardiovascular Exam: Present: regular rate, normal rhythm, normal heart sounds. Absent: systolic murmur, diastolic murmur, rubs, gallop, clicks Neurological exam: Present: alert, oriented X3, CN II-XII intact Skin exam: Present: warm, dry, intact, normal color. Absent: rash Course Vital Signs 06/17/23 06/17/23 06/17/23 11:31 11:34 11:48 Temperature 97.7 F 97.7 F Pulse Rate 81 74 Respiratory 18 16 Rate Blood Pressure 109/71 121/86 O2 Sat by Pulse 99 98 98 Oximetry 06/17/23 06/17/23 06/17/23 12:00 13:00 14:00 Temperature Pulse Rate 76 81 78 Respiratory 24 20 10 L Rate Blood Pressure 121/86 168/81 202/93 O2 Sat by Pulse 99 97 98 Oximetry 06/17/23 06/17/23 15:00 16:00 Temperature Pulse Rate 82 95 Respiratory 27 H 10 L Rate Blood Pressure 197/93 186/78 O2 Sat by Pulse 98 96 Oximetry Medical Decision Making - Medical Decision Making This is an 88-year-old female who presents to the emergency department for altered mental status. Was pt. sent in by a medical professional or institution? @ -No Did you speak to anyone other than the patient for history? @ -EMS and her daughter provided the majority of the information. Did you review nursing and triage notes? @ -Yes, and I agree, it is accurate with regards to the patient's symptoms. Were old charts reviewed? @ -No Differential Diagnosis? @ -Differential Altered Mental Status: Hypoglycemia, DKA, hypercapnia, ETOH, overdose, CO poisoning, trauma, myxedema coma, HTN encephalopathy, infection, encephalitis, psychosis, intercranial hemorrhage, hepatic encephalopathy, meningitis, CVA, this is not meant to be an all-inclusive list EKG interpreted by me (3pts min.)? @ -EKG interpreted by me demonstrating the following: Sinus rhythm. Ventricular rate 82 bpm, UT interval 127 ms, QRS duration 80 ms, QTC 439 ms. X-rays interpreted by me (1pt min.)? @ -Chest x-ray obtained, my interpretation identifies no localized consolidations or infiltrates. CT interpreted by me (1pt min.)? @ -Computed tomography scan of the brain and c-spine obtained. My interpretation identifies no evidence of an acute intracranial hemorrhage, skull fracture, or cervical spine fracture. U/S interpreted by me (1pt. min.)? @ -Not obtained What testing was considered but not performed? (CT, X-rays, U/S, labs)? Why? @ -None What meds were considered but not given? Why? @ -None Did you discuss the management of the patient with other professionals? @ -Yes, Dr. Pedroza, who accepts the patient for admission. Did you reconcile home meds? @ -Yes Was smoking cessation discussed for >3mins.? @ -No Was critical care preformed (if so, how long)? @ -No Were there social determinants of health that impacted care today? How? (Homelessness, low income, unemployed, alcoholism, drug addiction, transportation, low edu. Level, literacy, decrease access to med. care, [facility] [facility], rehab)? @ -No Was there de-escalation of care discussed even if they declined? (Discuss DNR or withdrawal of care, Hospice)? @ -No What co-morbidities impacted this encounter? (DM, HTN, Smoking, COPD, CAD, Cancer, CVA, Hep., AIDS, mental health diagnosis, sleep apnea, morbid obesity)? @ -HLD, HTN, hx of brain aneurysm Was patient admitted / discharged? @ -Admitted. Lab work obtained revealing mild leukocytosis, and was otherwise nonactionable. Computed tomography scan of the brain and C-spine obtained revealing no acute process. Chest x-ray also revealed no acute findings. Urinalysis negative for signs of infection. Patient was A+O 4, however she was very slow to respond, appeared very sleepy, and was found to be mumbling. She then proceeded to feel nauseous and threw up again. The family is concerned about her going home, as she lives alone and because the cause of this event is not entirely clear. Patient is also not quite back to her baseline, in that she is mumbling and very slow to respond. Patient subsequently admitted to medicine for further evaluation and management. Consult placed for PT/OT as well. After admission, patient's daughter requested a social work consult for either [facility] or rehab placement. This was subsequently ordered. Undiagnosed new problem with uncertain prognosis? @ -None Drug Therapy requiring intensive monitoring for toxicity (Heparin, Nitro, Insulin, Cardizem)? @ -None Were any procedures done? @ -None Diagnosis/symptom? @ -Altered mental status, fall, nausea/vomiting Acute, or Chronic, or Acute on Chronic? @ -Acute Uncomplicated (without systemic symptoms) or Complicated (systemic symptoms)? @ -Complicated Side effects of treatment? @ -None Exacerbation, Progression, or Severe Exacerbation] @ -Not applicable Poses a threat to life or bodily function? @ -Yes This case was discussed in detail with the attending ED physician, Dr. Cole. Presentation, findings, and treatment plan discussed in detail as well. - Lab Data Result diagrams: 06/17/23 11:57 06/17/23 11:57 Lab Results 06/17/23 06/17/23 06/17/23 Range/Units 11:57 11:57 11:57 WBC 10.9 H (3.8-10.6) k/uL RBC 4.26 (3.80-5.40) m/uL Hgb 13.8 (11.4-16.0) gm/dL Hct 41.9 (34.0-46.0) % MCV 98.3 (80.0-100.0) fL MCH 32.4 (25.0-35.0) pg MCHC 32.9 (31.0-37.0) g/dL RDW 12.9 (11.5-15.5) % Plt Count 349 (150-450) k/uL MPV 7.8 Neutrophils % 90 % Lymphocytes % 6 % Monocytes % 4 % Eosinophils % 0 % Basophils % 0 % Neutrophils # 9.8 H (1.3-7.7) k/uL Lymphocytes # 0.6 L (1.0-4.8) k/uL Monocytes # 0.4 (0-1.0) k/uL Eosinophils # 0.0 (0-0.7) k/uL Basophils # 0.0 (0-0.2) k/uL PT 10.3 (10.0-12.5) sec INR 0.9 (<1.2) APTT 22.3 (22.0-30.0) sec Sodium 134 L (137-145) mmol/L Potassium 3.9 (3.5-5.1) mmol/L Chloride 99 (98-107) mmol/L Carbon Dioxide 24 (22-30) mmol/L Anion Gap 11 mmol/L BUN 10 (7-17) mg/dL Creatinine 0.29 L (0.52-1.04) mg/dL Est GFR (CKD-EPI)AfAm >90 (>60 ml/min/1.73 sqM) Est GFR (CKD-EPI)NonAf >90 (>60 ml/min/1.73 sqM) Glucose 147 H (74-99) mg/dL Calcium 9.6 (8.4-10.2) mg/dL Total Bilirubin 0.9 (0.2-1.3) mg/dL AST 37 H (14-36) U/L ALT 31 (4-34) U/L Alkaline Phosphatase 101 (38-126) U/L Creatine Kinase 83 (30-135) U/L Troponin I (0.000-0.034) ng/mL Total Protein 7.7 (6.3-8.2) g/dL Albumin 4.5 (3.5-5.0) g/dL Urine Color Urine Appearance (Clear) Urine pH (5.0-8.0) Ur Specific Felicity (1.001-1.035) Urine Protein (Negative) Urine Glucose (UA) (Negative) Urine Ketones (Negative) Urine Blood (Negative) Urine Nitrite (Negative) Urine Bilirubin (Negative) Urine Urobilinogen (<2.0) mg/dL Ur Leukocyte Esterase (Negative) Urine RBC (0-5) /hpf Urine WBC (0-5) /hpf Urine Bacteria (None) /hpf Urine Mucus (None) /hpf 06/17/23 06/17/23 Range/Units 11:57 12:55 WBC (3.8-10.6) k/uL RBC (3.80-5.40) m/uL Hgb (11.4-16.0) gm/dL Hct (34.0-46.0) % MCV (80.0-100.0) fL MCH (25.0-35.0) pg MCHC (31.0-37.0) g/dL RDW (11.5-15.5) % Plt Count (150-450) k/uL MPV Neutrophils % % Lymphocytes % % Monocytes % % Eosinophils % % Basophils % % Neutrophils # (1.3-7.7) k/uL Lymphocytes # (1.0-4.8) k/uL Monocytes # (0-1.0) k/uL Eosinophils # (0-0.7) k/uL Basophils # (0-0.2) k/uL PT (10.0-12.5) sec INR (<1.2) APTT (22.0-30.0) sec Sodium (137-145) mmol/L Potassium (3.5-5.1) mmol/L Chloride (98-107) mmol/L Carbon Dioxide (22-30) mmol/L Anion Gap mmol/L BUN (7-17) mg/dL Creatinine (0.52-1.04) mg/dL Est GFR (CKD-EPI)AfAm (>60 ml/min/1.73 sqM) Est GFR (CKD-EPI)NonAf (>60 ml/min/1.73 sqM) Glucose (74-99) mg/dL Calcium (8.4-10.2) mg/dL Total Bilirubin (0.2-1.3) mg/dL AST (14-36) U/L ALT (4-34) U/L Alkaline Phosphatase (38-126) U/L Creatine Kinase (30-135) U/L Troponin I 0.028 (0.000-0.034) ng/mL Total Protein (6.3-8.2) g/dL Albumin (3.5-5.0) g/dL Urine Color Light Yellow Urine Appearance Clear (Clear) Urine pH 8.0 (5.0-8.0) Ur Specific Felicity 1.020 (1.001-1.035) Urine Protein 1+ H (Negative) Urine Glucose (UA) 3+ (Negative) Urine Ketones Negative (Negative) Urine Blood Negative (Negative) Urine Nitrite Negative (Negative) Urine Bilirubin Negative (Negative) Urine Urobilinogen <2.0 (<2.0) mg/dL Ur Leukocyte Esterase Negative (Negative) Urine RBC 2 (0-5) /hpf Urine WBC 1 (0-5) /hpf Urine Bacteria Rare H (None) /hpf Urine Mucus Rare H (None) /hpf - Radiology Data Radiology results: report reviewed, image reviewed Disposition Clinical Impression: Altered mental status, Fall, Nausea and vomiting Disposition: ADMITTED IP TO THIS HOSP
[2023-06-17 12:39] LABS: Basophils % (A) 0 %; Eosinophils % (A) 0 %; HCT 41.9 % (34.0-46.0); HGB 13.8 gm/dL (11.4-16.0); Lymphocytes # (A) 0.6 k/uL (1.0-4.8); Lymphocytes % (A) 6 %; MCH 32.4 pg (25.0-35.0); MCHC 32.9 g/dL (31.0-37.0); MCV 98.3 fL (80.0-100.0); Mean Platelet Volume 7.8; Monocytes # (A) 0.4 k/uL (0-1.0); Monocytes % (A) 4 %; Neutrophils # (A) 9.8 k/uL (1.3-7.7); Neutrophils % (A) 90 %; Platelet Count 349 k/uL (150-450); RBC 4.26 m/uL (3.80-5.40); RDW 12.9 % (11.5-15.5); WBC 10.9 k/uL (3.8-10.6)
[2023-06-17 12:51] LABS: ALT 31 U/L (4-34); AST 37 U/L (14-36); African American GFR (CKD) >90 (>60 ml/min/1.73 sqM); Albumin 4.5 g/dL (3.5-5.0); Alkaline Phosphatase 101 U/L (38-126); Anion Gap 11 mmol/L; Blood Urea Nitrogen 10 mg/dL (7-17); Calcium 9.6 mg/dL (8.4-10.2); Carbon Dioxide 24 mmol/L (22-30); Chloride 99 mmol/L (98-107); Creatine Kinase 83 U/L (30-135); Glucose 147 mg/dL (74-99); INR 0.9 (<1.2); Non-African American GFR(CKD) >90 (>60 ml/min/1.73 sqM); Partial Thromboplastin Time 22.3 sec (22.0-30.0); Potassium 3.9 mmol/L (3.5-5.1); Prothrombin Time 10.3 sec (10.0-12.5); Sodium 134 mmol/L (137-145); Total Bilirubin 0.9 mg/dL (0.2-1.3); Total Protein 7.7 g/dL (6.3-8.2)
--- NOTE | 2023-06-17 13:09 | CT ---
EXAMINATION TYPE: CT brain cspine wo con CT DLP: 1292.7 mGycm, Automated exposure control for dose reduction was used. DATE OF EXAM: 06/17/2023 12:50 PM COMPARISON: 04/02/2023. CLINICAL INDICATION:Female, 88 years old with history of Fall, altered mental status; fall TECHNIQUE: Brain: Multiple axial CT images of the brain were obtained without IV contrast. Cspine: Axial CT images from the skull base to the inferior aspect of T2 we obtained without intraven ous contrast. Coronal and sagittal reformatted images were also reviewed. FINDINGS: Brain: Extra-axial spaces: No abnormal extra-axial fluid collections. Ventricular system: Dilatation in proportion to cerebral atrophy. Cerebral parenchyma: Cerebral atrophy. No acute intraparenchymal hemorrhage or mass effect. The singh -white junction is well differentiated. Scattered hypoattenuating areas are seen within the white mat ter. Cerebellum: Unremarkable. Mass effect: No evidence of midline shift. Intracranial vasculature: Atherosclerotic calcifications of the intracranial vessels. Soft tissues: Normal. Calvarium/osseous structures: No depressed skull fracture. Postsurgical changes to the skull near the skull base posteriorly. Paranasal sinuses and mastoid air cells: Clear. Visualized orbits: Bilaterally aphakia. Cervical spine: Fracture: None. Osseous structures: Multilevel degenerative disc disease changes with endplate spurring and disc oste ophyte complex's. Vertebral alignment: Within normal limits. Spinal canal/Neural Foramina: Disc osteophyte complexes at C5-C7. With at least mild spinal canal bushra nosis. Facet joint uncovertebral joint arthropathy scattered throughout the cervical spine with varyi ng degrees of neural foraminal stenosis. Neck soft tissues: Prevertebral soft tissues are within normal limits. IMPRESSION: 1. No acute intracranial process. 2. Nonspecific white matter changes, likely secondary to chronic small vessel ischemic disease. 3. No evidence of cervical spine fracture. 4. Moderate multilevel degenerative disc disease. 5. Postsurgical changes to the skull posteriorly near the skull base.
--- NOTE | 2023-06-17 14:32 | XR ---
EXAMINATION TYPE: XR chest 2V DATE OF EXAM: 06/17/2023 2:27 PM COMPARISON: Chest radiographs from 03/29/2023 TECHNIQUE: XR chest 2V Frontal and lateral views of the chest. CLINICAL INDICATION:Female, 88 years old with history of altered mental status; FINDINGS: Patient is rotated which limits evaluation. Lungs/Pleura: There is no evidence of pleural effusion, focal consolidation, or pneumothorax. Chroni c senescent parietal change. Hyperinflation with flattening of the hemidiaphragms. Pulmonary vascularity: Unremarkable. Heart/mediastinum: Cardiomediastinal silhouette is unremarkable. Atherosclerotic calcifications are seen in the aorta. Musculoskeletal: Multiple level degenerative disc disease changes seen throughout the spine. IMPRESSION: 1. No acute cardiopulmonary disease process. 2. COPD changes.
[2023-06-17 14:46] LABS: Appearance,Urine Clear (Clear); Color,Urine Light Yellow; Protein,Urine 1+ (Negative)
[2023-06-17 14:47] LABS: Bilirubin,Urine Negative (Negative); Blood,Urine Negative (Negative); Glucose,Urine (UA) 3+ (Negative); Ketones,Urine Negative (Negative); Leukocyte Esterase,Urine Negative (Negative); Nitrite,Urine Negative (Negative); Urobilinogen,Urine <2.0 mg/dL (<2.0)
[2023-06-17 14:55] LABS: Bacteria,Urine Rare /hpf; Mucus,Urine Rare /hpf; RBC,Urine 2 /hpf (0-5); WBC,Urine 1 /hpf (0-5)
[2023-06-17] MEDS ORDERED: ONDANSETRON 4 MG/2 ML VIAL IVP STA (15:46)
[2023-06-17] MEDS ORDERED: ACETAMINOPHEN TAB 325 MG TAB PO PRN ×2 (16:06→16:07)
[2023-06-17] MEDS ORDERED: NALOXONE 0.4 MG/ML 1 ML VIAL IV PRN (16:06)
[2023-06-17] MEDS ORDERED: ALPRAZolam 0.25 MG TAB PO PRN (16:07)
[2023-06-17] MEDS ORDERED: SODIUM CHLORIDE 0.9% 1,000 ML IV STA (16:10)
[2023-06-17] MEDS: LATANOPROST 0.005% OPHTH DROPS 2.5 ML BTL BOTH EYES SCH (20:54)
[2023-06-17] MEDS: BRIMONIDINE TARTRATE 0.2% DROPS 5 ML BTL BOTH EYES SCH (20:55)
[2023-06-17] MEDS: hydrALAZINE HCL 20 MG/ML 1 ML VIAL IVP PRN (20:55)
[2023-06-18] MEDS: FAMOTIDINE 20 MG TAB PO SCH (09:51)
[2023-06-18] MEDS: BRIMONIDINE TARTRATE 0.2% DROPS 5 ML BTL BOTH EYES SCH ×2 (09:52→21:58)
[2023-06-18] MEDS: BUMETANIDE 0.5 MG TABLET PO SCH (09:52)
[2023-06-18] MEDS: NON FORMULARY DRUG (Mirabegron [Myrbetriq] 25 MG Tab.Er.24h) PO SCH (09:52)
[2023-06-18] MEDS ORDERED: HYDROcodone/APAP 5-325MG 1 EACH TAB PO PRN (10:38)
--- NOTE | 2023-06-18 11:14 | XR ---
EXAMINATION TYPE: XR Hip Complete RT DATE OF EXAM: 06/18/2023 COMPARISON: 11/11/2022 HISTORY: Pain TECHNIQUE: 2 views submitted FINDINGS: There is no evidence of erosive change or acute fracture. Markedly dilated bowel loops are seen in th e pelvis correlate for obstruction. There is moderate hypertrophic arthropathy of the hip correlate f or femoral acetabular impingement. Findings similar to prior exam. IMPRESSION: 1. No evidence of acute fracture or dislocation. If the patient has difficulty with weightbearing or there are high clinical concern for fracture then consider CT scan. 2. Markedly dilated small bowel loops. Obstructive pattern in the differential diagnosis.
--- NOTE | 2023-06-18 11:17 | XR ---
EXAM TYPE: LUMBAR SPINE X RAY SERIES COMPARISON: 06/05/2015 HISTORY: Pain TECHNIQUE: 4 views are submitted. FINDINGS: Alignment is anatomic. The pedicles are intact. The transverse processes are intact. There is diff use osteopenia with scoliotic curvature. There is multilevel degenerative disc disease with severe ch anges L2-3, L3-4, and L5-S1. Multilevel facet arthropathy. Atherosclerotic change aorta. Markedly dil ated small bowel loops are seen. IMPRESSION: 1. Scoliosis with severe degenerative disc disease. 2. Markedly dilated bowel loops correlate for bowel obstruction..
[2023-06-18 13:33] LABS: Glucose,Whole Blood 113 mg/dL (70-110)
[2023-06-18] MEDS ORDERED: IOPAMIDOL CONTRAST (ORAL USE) VIAL PO PRN (14:16)
[2023-06-18] MEDS ORDERED: SODIUM CHLORIDE 0.9% 1,000 ML IV STA (14:25)
--- NOTE | 2023-06-18 15:18 | P.GSCN ---
History of Present Illness Consult date: 06/18/23 History of present illness: CHIEF COMPLAINT: Altered mental status HISTORY OF PRESENT ILLNESS: This is a 88-year-old female who presented to the emergency department for altered mental status. Patient lives alone in one family went to check on her they found her down on the ground and covered in vomit. She was then brought into the ER for further evaluation via EMS. Most history is obtained from the family. Family reports that there were small amounts of emesis that was dark brown slightly blood-tinged in color across the floor. Patient has been having issues with constipation and vomiting over the last month. Patient was seen in ER and mid May for this intractable nausea and vomiting and at that time diagnosed with a UTI. Patient complains of right sided back pain. A lumbar x-ray was completed that showed scoliosis with severe degenerative disc changes. Also noted markedly dilated bowel loops correlate for bowel obstruction. Medicine service has ordered a computed tomography scan of the abdomen and pelvis and surgical service consulted for abdominal pain. Patient denies any prior history of bowel obstruction. Abdominal surgical history includes appendectomy, and tubal ligation. Patient is not on any blood thinners. PAST MEDICAL HISTORY: See below PAST SURGICAL HISTORY: See below MEDICATIONS: See below ALLERGIES: See below SOCIAL HISTORY: No illicit drug use. REVIEW OF SYSTEMS: CONSTITUTIONAL: Denies fever or chills. HEENT: Denies blurred vision, vision changes, or eye pain. Denies hemoptysis CARDIOVASCULAR: Denies chest pain or pressure. RESPIRATORY: No shortness of breath. GASTROINTESTINAL: See HPI for pertinent findings HEMATOLOGIC: Denies bleeding disorders. GENITOURINARY: Denies any blood in urine or increased urinary frequency. SKIN: Denies pruitis. Denies rash. PHYSICAL EXAM: VITAL SIGNS: Reviewed GENERAL: Well-developed in no acute distress. ABDOMEN: Soft. Mildly distended. Tenderness to palpation in the right lower quadrant and right inguinal area NEUROLOGIC: Awake and alert. Hard of hearing. LABORATORY DATA: WBC 10.9 Hgb 13.8 platelets 349 Sodium 134 potassium 3.4 creatinine 0.29 Total bilirubin 0.9 AST 37 ALT 31 alk phos 101 IMAGING: Lumbar spine x-ray scoliosis with severe degenerative disc disease. Markedly dilated bowel loops correlate for bowel obstruction Hip X-ray no evidence of acute fracture dislocation markedly dilated small bowel loops. ASSESSMENT: 1. Right lower quadrant and right inguinal abdominal pain with a lumbar spine x-ray reporting markedly dilated bowel loops correlate for bowel obstruction 2. Nausea and vomiting 3. Altered mental status 4. Prior abdominal surgical history PLAN: -Medicine service has ordered a computed tomography scan abdomen and pelvis. We'll follow up on computed tomography scan results -Keep patient nothing by mouth for now -Continue IV fluids -Continue supportive care Thank you for this consultation Physician Statistical Secretary note has been reviewed by physician. Signing provider agrees with the documented findings, assessment, and plan of care. I have personally seen and examined the patient, reviewed the [facility] /PAs history, exam and MDM and agree with the assessment and plan as written. Based on total visit time, I have performed more than 50% of the visit. As above: Patient with intermittent vomiting and pain. She now has pain right lower quadrant and right upper medial thigh. CAT scan pelvis reviewed from prior admission demonstrating incarcerated right obturator hernia. Repeat CAT scan is pending in the next 15 minutes or so. Clinical findings and diagnostic studies reviewed with the patient and her 2 children at the bedside at length. Keep nothing by mouth for now. We will tentatively schedule for exploratory laparotomy, repair incarcerated right obturator hernia with possible mesh, possible bowel resection. Risks of bleeding, infection, recurrence, bladder and bowel injury, numbness, nerve injury were discussed with the patient. The patient understands and wishes to proceed. 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, received steroid injections to back on 09/18/15 for "pinched ne rve" History of Any Multi-Drug Resistant Organisms: None Reported Past Surgical History: Appendectomy, Section, Orthopedic Surgery, Tubal Ligation Additional Past Surgical History / Comment(s): brain aneurym repair with clip, repair of fx lt elbow with hardware Past Anesthesia/Blood Transfusion Reactions: Postoperative Nausea & Vomiting (PONV) Past Psychological History: No Psychological Hx Reported Smoking Status: Never smoker Past Alcohol Use History: Rare Past Drug Use History: None Reported - Past Family History Mother Family Medical History: Coronary Artery Disease (CAD) Father Family Medical History: Cancer Medications and Allergies Home Medications Medication Instructions Recorded Confirmed Type Brimonidine Tartrate [Alphagan P 1 drop BOTH EYES BID 11/12/22 06/17/23 History 0.2% Ophth Soln] Famotidine [Pepcid] 40 mg PO DAILY 11/12/22 06/17/23 History Latanoprost [Latanoprost 0.005%] 1 drop BOTH EYES HS 11/12/22 06/17/23 History ALPRAZolam [Xanax] 0.25 mg PO BID PRN 3 Days #6 tab 11/14/22 06/17/23 Rx Acetaminophen Tab [Tylenol] 650 mg PO Q6HR PRN tab 11/14/22 06/17/23 Rx Bumetanide [BUMEX] 0.5 mg PO DAILY 06/17/23 06/17/23 History Mirabegron [Myrbetriq] 25 mg PO DAILY 06/17/23 06/17/23 History Allergies Allergy/AdvReac Type Severity Reaction Status Date / Time No Known Allergies Allergy Verified 06/17/23 14:18 Surgical - Exam Vital Signs Temp Pulse Resp BP Pulse Ox 97.7 F 81 18 109/71 99 06/17/23 11:31 06/17/23 11:31 06/17/23 11:31 06/17/23 11:31 06/17/23 11:31 Results - Labs 06/17/23 11:57 06/17/23 11:57 Abnormal Lab Results - Last 24 Hours (Table) 06/18/23 Range/Units 13:31 POC Glucose (mg/dL) 113 H (70-110) mg/dL
[2023-06-18] MEDS: hydrALAZINE HCL 20 MG/ML 1 ML VIAL IVP PRN (15:41)
[2023-06-18] MEDS: ONDANSETRON 4 MG/2 ML VIAL IVP PRN (15:41)
--- NOTE | 2023-06-18 17:01 | CT ---
EXAMINATION TYPE: CT abdomen pelvis w con DATE OF EXAM: 06/18/2023 COMPARISON: 05/28/2023 INDICATION: POSSIBLE BOWEL OBSTRUCTION DLP: 722 mGycm, Automated exposure control for dose reduction was used. CONTRAST: 100 mL of Isovue 300. Study performed with Oral Contrast TECHNIQUE: Axial images were obtained from above the diaphragm to the pubic rami in the axial plane a t 5 mm thick sections. Reconstructed images are reviewed on the computer in the coronal plane. FINDINGS: Limited CT sections are obtained the lung bases. The lung bases are clear. CT ABDOMEN: Some free fluid is adjacent to the liver. Liver: Normal Spleen: Normal Pancreas: Atrophic Adrenal glands: The adrenal glands are normal. Gallbladder: Normal Kidneys: No masses are evident. No hydronephrosis is present. No cysts are present. Delayed images were obtained through the kidneys, which remain unremarkable. Aorta: Vascular calcification is within the aorta. Inferior vena cava: Normal. CT PELVIS: Air-filled small bowel loops are present extending into the pelvis. Distal small bowel loops are deco mpressed. Some fecal debris appears to be within the ascending colon region. There are some loops of bowel lacking oral contrast are incompletely distended limiting their evaluation. There is a loop of bowel extending through the right obturator canal. This loop of bowel is fluid-abby led with this and is hernia. Proximal to this air-filled small bowel loops are dilated. On the effere nt side this appears decompressed. Obstruction is likely present. Small bowel prominence is increasin g over the interval. Appendix: Not identified. No dilated tubular structure or inflammatory change evident to suggest acut e appendicitis. Urinary bladder: Normal. Genitourinary structures: Uterus is normal. Adnexa are normal. Osseous structures: No suspicious lytic or sclerotic lesions. IMPRESSION: 1. 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 Report was called case discussed wi th the referring surgeon and Dr. Kearns at 1655 hours 06-18-2023.
--- NOTE | 2023-06-18 18:47 | P.HPIM ---
History of Present Illness H&P Date: 06/18/23 Fatuma Ramirez, is an 88-year-old female who presented to [facility] emergency room after being found on the floor in her residence with evidence of vomiting and altered mental status. She was evaluated in the emergency room vital examination on presentation revealed a temperature of 97.7 pulse 81 respiration 18 and blood pressure 109/79 pulse ox 99% on room air Laboratory data reveals a white blood count of 10.9 hemoglobin 13.8 platelet count 314 9 BUN 10 creatinine 0.29 Testing in the emergency room revealed computed tomography scan of the brain and the cervical spine revealed no acute intracranial process nonspecific white matter changes and no evidence of cervical spine fracture Patient was admitted to medical floor for further evaluation and treatment. After arriving to the floor patient was having significant pain in the right hip area and the lumbar spine area x-rays were done and no fracture was evident however there was evidence of dilated bowel loops computed tomography scan of the abdomen and pelvis was ordered and surgical consultation was requested. 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, received steroid injections to back on 09/18/15 for "pinched nerve" History of Any Multi-Drug Resistant Organisms: None Reported Past Surgical History: Appendectomy, Section, Orthopedic Surgery, Tubal Ligation Additional Past Surgical History / Comment(s): brain aneurym repair with clip, repair of fx lt elbow with hardware Past Anesthesia/Blood Transfusion Reactions: Postoperative Nausea & Vomiting (PONV) Past Psychological History: No Psychological Hx Reported Smoking Status: Never smoker Past Alcohol Use History: Rare Past Drug Use History: None Reported - Past Family History Mother Family Medical History: Coronary Artery Disease (CAD) Father Family Medical History: Cancer Medications and Allergies Home Medications Medication Instructions Recorded Confirmed Type Brimonidine Tartrate [Alphagan P 1 drop BOTH EYES BID 11/12/22 06/17/23 History 0.2% Ophth Soln] Famotidine [Pepcid] 40 mg PO DAILY 11/12/22 06/17/23 History Latanoprost [Latanoprost 0.005%] 1 drop BOTH EYES HS 11/12/22 06/17/23 History ALPRAZolam [Xanax] 0.25 mg PO BID PRN 3 Days #6 tab 11/14/22 06/17/23 Rx Acetaminophen Tab [Tylenol] 650 mg PO Q6HR PRN tab 11/14/22 06/17/23 Rx Bumetanide [BUMEX] 0.5 mg PO DAILY 06/17/23 06/17/23 History Mirabegron [Myrbetriq] 25 mg PO DAILY 06/17/23 06/17/23 History Allergies Allergy/AdvReac Type Severity Reaction Status Date / Time No Known Allergies Allergy Verified 06/17/23 14:18 Physical Exam Vitals: Vital Signs Temp Pulse Pulse Resp BP BP Pulse Ox 06/18/23 07:37 98.7 F 110 H 16 178/87 97 06/18/23 04:15 98.3 F 96 16 159/75 98 06/17/23 20:15 16 06/17/23 20:11 98 06/17/23 19:49 98 F 48 L 16 183/78 94 L 06/17/23 17:00 96 15 178/77 97 06/17/23 16:00 95 10 L 186/78 96 06/17/23 15:00 82 27 H 197/93 98 06/17/23 14:00 78 10 L 202/93 98 06/17/23 13:00 81 20 168/81 97 06/17/23 12:00 76 24 121/86 99 06/17/23 11:48 97.7 F 74 16 121/86 98 06/17/23 11:34 98 06/17/23 11:31 97.7 F 81 18 109/71 99 Intake and Output 06/17/23 06/18/23 06/18/23 22:59 06:59 14:59 Intake Total 600 Balance 600 Intake: Oral 600 Other: Voiding Method Diaper Incontinent # Voids 2 Weight 80.7 kg In general patient is alert and oriented x 3 in no distress HEENT head normocephalic and atraumatic Neck is supple no JVD no goiter no lymphadenopathy no carotid bruit Chest examination is clear to auscultation no crackles no wheezing Cardiac exam reveals regular heart sounds S1 and S2 no gallops no murmurs Abdomen is soft nontender no organomegaly with normal bowel sounds Extremity exam reveals no edema no cyanosis or clubbing Neurological examination reveals no gross focal deficits Results CBC & Chem 7: 06/17/23 11:57 06/17/23 11:57 Labs: Abnormal Lab Results - Last 24 Hours (Table) 06/17/23 06/17/23 06/17/23 Range/Units 11:57 11:57 12:55 WBC 10.9 H (3.8-10.6) k/uL Neutrophils # 9.8 H (1.3-7.7) k/uL Lymphocytes # 0.6 L (1.0-4.8) k/uL Sodium 134 L (137-145) mmol/L Creatinine 0.29 L (0.52-1.04) mg/dL Glucose 147 H (74-99) mg/dL AST 37 H (14-36) U/L Urine Protein 1+ H (Negative) Urine Bacteria Rare H (None) /hpf Urine Mucus Rare H (None) /hpf Thrombosis Risk Factor Assmnt - Choose All That Apply Any of the Below Risk Factors Present?: Yes Each Factor Represents 1 point: Obesity (BMI >25) Other Risk Factors: Yes Each Risk Factor Represents 3 Points: Age 75 years or older Other congenital or acquired thrombophilia - If yes, enter type in comment: No Thrombosis Risk Factor Assessment Total Risk Factor Score: 4 Thrombosis Risk Factor Assessment Level: Moderate Risk Assessment and Plan Plan: Mental status changes Nausea and vomiting Fall at home 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
[2023-06-18] MEDS ORDERED: PHENYLEPHRINE 10 MG/ML 5 ML VIAL ONE (19:07)
[2023-06-18] MEDS ORDERED: ROCURONIUM 10 MG/ML (5 ML VIAL) IV ONE (19:07)
[2023-06-18] MEDS ORDERED: IV FLUID CONTINUATION 1,000 ML IV ONE (19:07)
[2023-06-18] MEDS ORDERED: ETOMIDATE 2 MG/ML 10 ML VIAL ONE (19:07)
[2023-06-18] MEDS ORDERED: SUCCINYLCHOLINE CHLORIDE 200 MG/10 ML VIAL IV ONE (19:07)
[2023-06-18] MEDS ORDERED: fentaNYL (PF) 50 MCG/ML 2 ML AMP ONE (19:07)
[2023-06-18] MEDS ORDERED: SODIUM CHLORIDE 0.9% 50 ML with ceFAZolin 1,000 MG IV ONE ×2 (19:37)
[2023-06-18] MEDS ORDERED: NALOXONE 0.4 MG/ML 1 ML VIAL IV PRN (20:41)
[2023-06-18] MEDS ORDERED: ONDANSETRON 4 MG/2 ML VIAL IVP ONE (20:43)
[2023-06-18] MEDS ORDERED: HYDROmorphone 1 MG/ML 1 ML SYRINGE IVP PRN (20:44)
[2023-06-18] MEDS ORDERED: HYDROmorphone 0.5 MG/0.5 ML SYRINGE IVP ONE (20:44)
[2023-06-18] MEDS ORDERED: HYDROmorphone 0.5 MG/0.5 ML SYRINGE IVP PRN (20:44)
[2023-06-18] MEDS ORDERED: ACETAMINOPHEN IV (For NPO) 500 MG in EMPTY BAG 1 BAG IVPB PRN (20:44)
--- NOTE | 2023-06-18 20:50 | P.OP ---
Date of Procedure: 06/18/23 Procedure(s) Performed: PREOPERATIVE DIAGNOSIS: Small bowel obstruction POSTOPERATIVE DIAGNOSIS: Small bowel obstruction secondary to incarcerated right obturator hernia PROCEDURE: [place] laparotomy with lysis of adhesions, repair right obturator hernia with mesh SURGEON: Delmi EBL: 20 mL ANESTHESIA: Gen. COMPLICATIONS: None OPERATIVE PROCEDURE: Patient placed on the operating table in the supine position. The patient was placed. Abdomen prepped sterilely. Vertical infraumbilical midline incision created using scalpel. Dissection through the subcutaneous tissues took place using electrocautery. Entrance into the perineal cavity occurred. The patient small bowel proximally was significantly distended. The patient small bowel was seen to be going through the obturator hernia that was seen on CAT scan on the right-hand side. Using gentle traction we were able to reduce the small bowel contents. The contents of the small bowel were then milked proximally to the stomach where a nasogastric tube had been placed and the air and succus was evacuated. The bowel appeared viable however it was left alone for a while while we addressed hernia. The peritoneum was inspected. The hernia sac was able to be reduced without difficulty. A small incision was made on the peritoneum in the right pelvis. The obturator hernia was identified. The obturator nerve was seen entering into the obturator canal. No additional defects were seen. A small piece of 3" x 6" Prolene mesh was cut in an oval shape to fit over the obturator canal. Is measured approximate 3 x 4" and again was oval-shaped. This was stitched using a single 3-0 silk stitch to Orlin's ligament medially. The peritoneum was then closed over the mesh using a running locking 2-0 Vicryl stitch. The bowel was then inspected once again. The bowel appeared viable and there was visible peristalsis. No further ischemic changes were noted. The abdomen was irrigated with saline. The midline fascia was then reapproximated using a running double- stranded #1 PDS suture. The skin was closed using kartik. Sterile dressings were applied. DISPOSITION: Stable to recovery room. Discussed findings with family. We also discussed the patient's CODE STATUS. They are interested in the patient being no code. We did agree that we would allow for intubation this evening in case of respiratory failure. They are not interested in chest compressions or cardioversion. They would like to go back to full CODE STATUS tomorrow morning. This will be arranged.
[2023-06-18] MEDS: PIPERACILLIN-TAZOBACTAM 3.375 GM in SODIUM CHLORIDE 0.9% 100 ML IVPB SCH (21:58)
[2023-06-18] MEDS: LATANOPROST 0.005% OPHTH DROPS 2.5 ML BTL BOTH EYES SCH (21:58)
[2023-06-19 08:47] LABS: ALT 18 U/L (8-44); AST 23 U/L (13-35); Albumin 3.3 d/dL (3.8-4.9); Albumin/Globulin Ratio 1.65 Ratio (1.60-3.17); Alkaline Phosphatase 69 U/L (41-126); Blood Urea Nitrogen 25.2 mg/dL (9.0-27.0); Calcium 8.9 mg/dL (8.7-10.3); Carbon Dioxide 24.8 mmol/L (21.6-31.8); Chloride 104 mmol/L (96-109); Glucose 100 mg/dL (70-110); Potassium 3.3 mmol/L (3.5-5.5); Sodium 137 mmol/L (135-145); Total Protein 5.3 d/dL (6.2-8.2)
[2023-06-19 08:49] LABS: Basophils # (A) 0.04 X 10*3/uL (0.00-0.10); Basophils % (A) 0.2 %; Eosinophils # (A) 0 X 10*3/uL (0.04-0.35); Eosinophils % (A) 0 %; HCT 40.5 % (37.2-46.3); HGB 13.2 d/dL (12.0-15.0); Lymphocytes # (A) 0.66 X 10*3/uL (0.90-5.00); Lymphocytes % (A) 3.7 %; MCH 31.5 pg (27.0-32.0); MCHC 32.6 d/dL (32.0-37.0); MCV 96.7 FL (80.0-97.0); Mean Platelet Volume 10.2 FL (9.5-12.2); Monocytes # (A) 1.61 X 10*3/uL (0.20-1.00); NRBC Per 100 WBC 0 X 10*3/uL (0.00-0.01); Neutrophils % (A) 86.7 %; Platelet Count 353 X 10*3/uL (140-440); RBC 4.19 X 10*6/uL (4.10-5.20); RDW 13.6 % (11.5-14.5); WBC 17.88 X 10*3/uL (4.50-10.00)
[2023-06-19] MEDS: ENOXAPARIN 40 MG/0.4 ML SYRINGE SQ SCH (09:45)
[2023-06-19] MEDS: BUMETANIDE 0.5 MG TABLET PO SCH ×2 (09:45→14:10)
[2023-06-19] MEDS: FAMOTIDINE 20 MG TAB PO SCH ×2 (09:45→14:10)
[2023-06-19] MEDS: BRIMONIDINE TARTRATE 0.2% DROPS 5 ML BTL BOTH EYES SCH ×2 (09:46→20:18)
[2023-06-19] MEDS: PIPERACILLIN-TAZOBACTAM 3.375 GM in SODIUM CHLORIDE 0.9% 100 ML IVPB SCH ×3 (09:47→23:27)
[2023-06-19] MEDS: NON FORMULARY DRUG (Mirabegron [Myrbetriq] 25 MG Tab.Er.24h) PO SCH (09:47)
[2023-06-19] MEDS: ACETAMINOPHEN IV (For NPO) 1,000 MG in EMPTY BAG 1 BAG IVPB SCH ×3 (11:25→23:27)
--- NOTE | 2023-06-19 11:30 | CDI ---
Documentation Clarification Form Date: 06/19/2023 10:48:00 AM From: Zara Chambers RN, CCDS Admit Date: 06/17/2023 04:28:00 PM Patient Name: Fatuma Ramirez Visit Number: [id number] Discharge Date: ATTENTION: The Clinical Documentation Specialists (CDI) and [facility] Coding Staff appreciate your assistance in clarifying documentation. Please respond to the clarification below the line at the bottom and electronically sign. The CDI & [facility] Coding staff will review the response and follow-up if needed. Please note: Queries are made part of the Legal Health Record. If you have any questions, please contact the author of this message via ITS. Dr. Tanna Pedroza Your patient has the documented symptom of Altered Mental Status in the ED assessment and the H/P. Additional clarification regarding the etiology/cause of this symptom is requested. History/Risk Factors: GERD/Reflux, Hyperlipidemia, Hypertension Clinical Indicators: 88-year-old female who presents to the emergency department for altered mental status. She lives alone and was found on the ground covered in vomit and she appeared to be altered and incoherent. ED evaluation she is currently alert to herself, location, and time. She also knows who the president is. She responds but is sleepy VS: 109/71 81 18 97.7 99% Labs: WBC 10.9 NA 134 BUN 10 CR 0.29, Trop 0.028 UA Negative 06/17 CXR: No acute process. COPD changes 06/17 CT Brain: No ac process Treatment: Neuro check per protocol Please clarify the etiology of the symptom of Altered Mental Status: [ x ] Metabolic encephalopathy due to nausea and vomiting, small bowel obstruction [ ] Dementia (if know, specify Type and if with/without Behavioral Disturbance) [ ] Other condition (please specify) [ ] Unable to determine (Template Last Revised: September 2020) YAMILETHD
[2023-06-19] MEDS ORDERED: POTASSIUM CHLORIDE 20 MEQ in WATER FOR INJECTION 1 100ML.BAG IVPB STA (11:58)
[2023-06-19] MEDS ORDERED: ACETAMINOPHEN IV (For NPO) 1,000 MG in EMPTY BAG 1 BAG IVPB SCH (12:00)
--- NOTE | 2023-06-19 12:07 | P.PN ---
Subjective Progress Note Date: 06/19/23 CHIEF COMPLAINT: Small bowel obstruction HISTORY OF PRESENT ILLNESS: Patient is postop day #1 status post laparotomy with lysis of adhesions and repair of right obturator hernia with mesh. Patient is lying in bed and appears comfortable. She does have pain at the incision site. She is afebrile. She is mildly tachycardic. WBC is up from 10-17.8 Hgb 13.2 platelets 353 sodium was 137 potassium is 3.3 creatinine 0.6 PHYSICAL EXAM: VITAL SIGNS: Reviewed. GENERAL: Well-developed in no acute distress. ABDOMEN: Soft. Mildly distended. Incisional dressing clean dry and intact. Tenderness with palpation around the incision and right lower quadrant NEUROLOGIC: Awake and alert. Hard of hearing. ASSESSMENT: 1. Small bowel obstruction secondary to incarcerated right obturator hernia status post laparotomy with lysis of adhesions and repair of right obturator hernia with mesh 2. Hypokalemia PLAN: -Continue NG tube for decompression -Keep patient nothing by mouth -IV Tylenol scheduled added to help with pain control -Encouraged patient to use incentive spirometer -Replace potassium -Increase IV fluids to 100ml/hr -Continue antibiotics -DVT prophylaxis Lovenox Physician Clinical Rn Liaison note has been reviewed by physician. Signing provider agrees with the documented findings, assessment, and plan of care. I have personally seen and examined the patient, reviewed the FITNESS TRAINER /PAs history, exam and MDM and agree with the assessment and plan as written. Based on total visit time, I have performed more than 50% of the visit. As above: Patient remains confused today. Mild discomfort. Seems to be fairly sensitive to the IV Dilaudid. We'll change to morphine. Keep nothing by mouth. Nasogastric tube came out accidentally. Will leave it out for now. Output was minimal. Gradually increase activity. Monitor urine output. Monitor vital signs. Objective - Vital Signs Vital signs: Vital Signs Temp 97.7 F 06/19/23 07:03 Pulse 115 H 06/19/23 07:03 Resp 16 06/19/23 07:03 BP 115/60 06/19/23 07:03 Pulse Ox 97 06/19/23 07:03 FiO2 Intake & Output 06/18/23 06/19/23 06/19/23 18:59 06:59 18:59 Intake Total 375 1300 Output Total 570 Balance 375 730 Intake: IV 600 Intake, IV Titration 375 700 Amount Piperacillin-Tazobactam 3 100 .375 gm In Sodium Chloride 0.9% 100 ml @ 25 mls/hr IVPB Q12HR [facility] Rx #:[id number] Sodium Chloride 0.9% 1, 375 600 000 ml @ 75 mls/hr IV . [id number] [facility] Rx#:[id number] Output: Urine 550 Estimated Blood Loss 20 Other: Voiding Method Bedside Commode Indwelling Catheter Diaper Incontinent - Labs CBC & Chem 7: 06/19/23 04:16 06/19/23 04:16 Labs: Abnormal Lab Results - Last 24 Hours (Table) 06/18/23 06/19/23 06/19/23 Range/Units 13:31 04:16 04:16 WBC 17.88 H (4.50-10.00) X 10*3/uL Neutrophils # 15.50 H (1.80-7.70) X 10*3/uL Lymphocytes # 0.66 L (0.90-5.00) X 10*3/uL Monocytes # 1.61 H (0.20-1.00) X 10*3/uL Eosinophils # 0 L (0.04-0.35) X 10*3/uL Potassium 3.3 L (3.5-5.5) mmol/L BUN/Creatinine Ratio 42.00 H (12.00-20.00) Ratio POC Glucose (mg/dL) 113 H (70-110) mg/dL Total Protein 5.3 L (6.2-8.2) d/dL Albumin 3.3 L (3.8-4.9) d/dL
[2023-06-19] MEDS: SODIUM CHLORIDE 0.9% 1,000 ML IV SCH ×2 (12:38→23:05)
--- NOTE | 2023-06-19 13:52 | P.PN ---
Subjective Progress Note Date: 06/19/23 Fatuma Ramirez, is an 88-year-old female who presented to [facility] emergency room after being found on the floor in her residence with evidence of vomiting and altered mental status. She was evaluated in the emergency room vital examination on presentation revealed a temperature of 97.7 pulse 81 respiration 18 and blood pressure 109/79 pulse ox 99% on room air Laboratory data reveals a white blood count of 10.9 hemoglobin 13.8 platelet count 314 9 BUN 10 creatinine 0.29 Testing in the emergency room revealed computed tomography scan of the brain and the cervical spine revealed no acute intracranial process nonspecific white matter changes and no evidence of cervical spine fracture Patient was admitted to medical floor for further evaluation and treatment. After arriving to the floor patient was having significant pain in the right hip area and the lumbar spine area x-rays were done and no fracture was evident however there was evidence of dilated bowel loops computed tomography scan of the abdomen and pelvis was ordered and surgical consultation was requested. On 06/19/2023 patient was seen and examined on the medical floor she is somnolent arousable in no apparent distress, yesterday she underwent laparotomy with lysis of adhesions and repair of right obturator hernia with mesh by Dr. Awad, this morning patient pulled out her NG tube, vital exam reveals a t emperature of 97.7 pulse 104 respiration 18 and blood pressure 122/65 pulse ox 97% on room air laboratory data reveals a white blood count of 17.8 hemoglobin 13.2 platelet count 353 sodium 137 potassium 3.3 chloride 104 CO2 24 BUN 25 creatinine 0.6 IV fluid was increased to 100 mL/h we'll continue to monitor Objective - Vital Signs Vital signs: Vital Signs Temp 97.7 F 06/19/23 07:03 Pulse 115 H 06/19/23 07:03 Resp 16 06/19/23 07:03 BP 115/60 06/19/23 07:03 Pulse Ox 97 06/19/23 07:03 FiO2 Intake & Output 06/18/23 06/19/23 06/19/23 18:59 06:59 18:59 Intake Total 375 1300 Output Total 570 Balance 375 730 Intake: IV 600 Intake, IV Titration 375 700 Amount Piperacillin-Tazobactam 3 100 .375 gm In Sodium Chloride 0.9% 100 ml @ 25 mls/hr IVPB Q12HR [facility] Rx #:[id number] Sodium Chloride 0.9% 1, 375 600 000 ml @ 75 mls/hr IV . [id number] [facility] Rx#:[id number] Output: Urine 550 Estimated Blood Loss 20 Other: Voiding Method Bedside Commode Indwelling Catheter Diaper Incontinent - Exam In general patient is alert and oriented x 3 in no distress HEENT head normocephalic and atraumatic Neck is supple no JVD no goiter no lymphadenopathy no carotid bruit Chest examination is clear to auscultation no crackles no wheezing Cardiac exam reveals regular heart sounds S1 and S2 no gallops no murmurs Abdomen is soft nontender no organomegaly with normal bowel sounds Extremity exam reveals no edema no cyanosis or clubbing Neurological examination reveals no gross focal deficits - Labs CBC & Chem 7: 06/19/23 04:16 06/19/23 04:16 Labs: Abnormal Lab Results - Last 24 Hours (Table) 06/18/23 06/19/23 06/19/23 Range/Units 13:31 04:16 04:16 WBC 17.88 H (4.50-10.00) X 10*3/uL Neutrophils # 15.50 H (1.80-7.70) X 10*3/uL Lymphocytes # 0.66 L (0.90-5.00) X 10*3/uL Monocytes # 1.61 H (0.20-1.00) X 10*3/uL Eosinophils # 0 L (0.04-0.35) X 10*3/uL Potassium 3.3 L (3.5-5.5) mmol/L BUN/Creatinine Ratio 42.00 H (12.00-20.00) Ratio POC Glucose (mg/dL) 113 H (70-110) mg/dL Total Protein 5.3 L (6.2-8.2) d/dL Albumin 3.3 L (3.8-4.9) d/dL Assessment and Plan Plan: Mental status changes Nausea and vomiting Fall at home 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
[2023-06-19] MEDS ORDERED: SODIUM CHLORIDE 0.9% 1,000 ML IV ONE (14:29)
[2023-06-19] MEDS ORDERED: MORPHINE SULFATE 2 MG/ML SYRINGE IVP PRN (15:56)
[2023-06-19] MEDS: LATANOPROST 0.005% OPHTH DROPS 2.5 ML BTL BOTH EYES SCH (20:18)
[2023-06-20] MEDS: ACETAMINOPHEN IV (For NPO) 1,000 MG in EMPTY BAG 1 BAG IVPB SCH (05:07)
[2023-06-20 07:09] LABS: African American GFR (CKD) >90 (>60 ml/min/1.73 sqM); Anion Gap 8 mmol/L; Blood Urea Nitrogen 24 mg/dL (7-17); Calcium 8.2 mg/dL (8.4-10.2); Carbon Dioxide 16 mmol/L (22-30); Chloride 113 mmol/L (98-107); Glucose 58 mg/dL (74-99); Non-African American GFR(CKD) 87 (>60 ml/min/1.73 sqM); Potassium 3.2 mmol/L (3.5-5.1); Sodium 137 mmol/L (137-145)
[2023-06-20 07:11] LABS: Basophils % (A) 0 %; Eosinophils % (A) 0 %; HCT 32.8 % (34.0-46.0); Hypochromasia Slight; Lymphocytes % (A) 9 %; MCH 32.7 pg (25.0-35.0); MCHC 32.4 g/dL (31.0-37.0); MCV 101.1 fL (80.0-100.0); Macrocytosis Slight; Mean Platelet Volume 8.7; Monocytes # (A) 0.6 k/uL (0-1.0); Monocytes % (A) 6 %; Neutrophils # (A) 9.3 k/uL (1.3-7.7); Neutrophils % (A) 83 %; Platelet Count 237 k/uL (150-450); RBC 3.24 m/uL (3.80-5.40); RDW 13.4 % (11.5-15.5); WBC 11.3 k/uL (3.8-10.6)
[2023-06-20 07:15] LABS: HGB 10.6 gm/dL (11.4-16.0)
[2023-06-20] MEDS ORDERED: POTASSIUM CHLORIDE ER 20 MEQ TAB.ER PO STA (07:19)
[2023-06-20] MEDS ORDERED: QUEtiapine 25 MG TAB PO PRN (07:20)
--- NOTE | 2023-06-20 07:42 | P.PN ---
Subjective Patient returns 88-year-old female is admitted to the hospital for altered mental status and found to have obturator hernia which was repaired. Pos toperatively patient was removed her NG tube patient is remains nothing by mouth does have bowel sounds in move her bowel yet. Patient is on both diuretics and IV fluids both of which will be discontinued. If patient is not started on liquid diet by surgery today or start her on gentle hydration that is 50 mL of normal saline today. Patient is alert and oriented 2 has occasional episodes of confusion appears to have some baseline dementia. Patient has leukocytosis which is improving patient is on Zosyn at this time. Constitutional: Denied any fatigue denied any fever. Cardio vascular: denied any chest pain, palpitations Gastrointestinal denied any nausea vomiting Pulmonary: Denied any shortness of breath cough Neurologic denied any new focal deficits All inpatient medications were reviewed and appropriate changes in these medications as dictated in the interval history and assessment and plan. PHYSICAL EXAMINATION: GENERAL: The patient is alert and oriented x2, not in any acute distress. Thin built elderly female HEENT: Pupils are round and equally reacting to light. EO MT. No scleral icterus. No conjunctival pallor. Normocephalic, atraumatic. No pharyngeal erythema. No thyromegaly. CARDIOVASCULAR: S1 and S2 present. No murmurs, rubs, or gallops. PULMONARY: Chest is clear to auscultation, no wheezing or crackles. ABDOMEN: Soft, nontender, nondistended, normoactive bowel sounds. No palpable organomegaly. MUSCULOSKELETAL: No joint swelling or deformity. EXTREMITIES: No cyanosis, clubbing, or pedal edema. NEUROLOGICAL: Gross neurological examination did not reveal any focal deficits. Significant generalized weakness and does have significant muscle atrophy SKIN: No rashes. Assessment and plan -Obturator hernia and bowel obstruction: Patient is status post repair of hernia slowly improvement secondary to age patient didn't require an NG tube anymore d oes have bowel sounds. IV fluids and Bumex will be discontinued and the patient remains nothing by mouth will be started on gentle hydration. Patient will be continued on antibiotics -Hypokalemia secondary to IV fluids and Bumex potassium will be replaced -Possible age-related dementia dictation confusional episodes secondary to delirium due to hospitalization -Metabolic encephalopathy on admission secondary to bowel obstruction -Hyperlipidemia DVT prophylaxis: On Lovenox at this time Objective - Vital Signs Vital signs: Vital Signs Temp 98 F 06/20/23 07:21 Pulse 85 06/20/23 07:21 Resp 17 06/20/23 07:21 BP 137/69 06/20/23 07:21 Pulse Ox 97 06/20/23 07:21 FiO2 Intake & Output 06/19/23 06/20/23 06/20/23 18:59 06:59 18:59 Intake Total 1500 Output Total 125 325 Balance -125 1175 Intake: Intake, IV Titration 1500 Amount ACETAMINOPHEN IV (For NPO 200 ) 1,000 mg In Empty Bag 1 bag @ 400 mls/hr IVPB Q6HR [facility] Rx#:[id number] Piperacillin-Tazobactam 3 100 .375 gm In Sodium Chloride 0.9% 100 ml @ 25 mls/hr IVPB Q8HR [facility] Rx# :[id number] Sodium Chloride 0.9% 1, 1200 000 ml @ 100 mls/hr IV . Q10H [facility] Rx#:[id number] Oral 0 Output: Urine 125 325 Other: Voiding Method Indwelling Catheter Indwelling Catheter - Labs CBC & Chem 7: 06/20/23 06:37 06/20/23 06:37 Labs: Abnormal Lab Results - Last 24 Hours (Table) 06/19/23 06/19/23 06/20/23 Range/Units 04:16 04:16 06:37 WBC 17.88 H 11.3 H (4.50-10.00) X 10*3/uL RBC 3.24 L (3.80-5.40) m/uL Hgb 10.6 L D (11.4-16.0) gm/dL Hct 32.8 L (34.0-46.0) % MCV 101.1 H (80.0-100.0) fL Neutrophils # 15.50 H 9.3 H (1.80-7.70) X 10*3/uL Lymphocytes # 0.66 L (0.90-5.00) X 10*3/uL Monocytes # 1.61 H (0.20-1.00) X 10*3/uL Eosinophils # 0 L (0.04-0.35) X 10*3/uL Potassium 3.3 L (3.5-5.5) mmol/L Chloride (98-107) mmol/L Carbon Dioxide (22-30) mmol/L BUN (7-17) mg/dL BUN/Creatinine Ratio 42.00 H (12.00-20.00) Ratio Glucose (74-99) mg/dL Calcium (8.4-10.2) mg/dL Total Protein 5.3 L (6.2-8.2) d/dL Albumin 3.3 L (3.8-4.9) d/dL 06/20/23 Range/Units 06:37 WBC (4.50-10.00) X 10*3/uL RBC (3.80-5.40) m/uL Hgb (11.4-16.0) gm/dL Hct (34.0-46.0) % MCV (80.0-100.0) fL Neutrophils # (1.80-7.70) X 10*3/uL Lymphocytes # (0.90-5.00) X 10*3/uL Monocytes # (0.20-1.00) X 10*3/uL Eosinophils # (0.04-0.35) X 10*3/uL Potassium 3.2 L (3.5-5.5) mmol/L Chloride 113 H (98-107) mmol/L Carbon Dioxide 16 L (22-30) mmol/L BUN 24 H (7-17) mg/dL BUN/Creatinine Ratio (12.00-20.00) Ratio Glucose 58 L (74-99) mg/dL Calcium 8.2 L (8.4-10.2) mg/dL Total Protein (6.2-8.2) d/dL Albumin (3.8-4.9) d/dL
[2023-06-20] MEDS: PIPERACILLIN-TAZOBACTAM 3.375 GM in SODIUM CHLORIDE 0.9% 100 ML IVPB SCH ×3 (08:55→23:37)
[2023-06-20] MEDS: BRIMONIDINE TARTRATE 0.2% DROPS 5 ML BTL BOTH EYES SCH ×2 (08:55→19:59)
[2023-06-20] MEDS: NON FORMULARY DRUG (Mirabegron [Myrbetriq] 25 MG Tab.Er.24h) PO SCH (09:21)
[2023-06-20] MEDS: ONDANSETRON 4 MG/2 ML VIAL IVP PRN (09:37)
[2023-06-20] MEDS: ENOXAPARIN 40 MG/0.4 ML SYRINGE SQ SCH (09:41)
[2023-06-20] MEDS: FAMOTIDINE 20 MG TAB PO SCH (10:10)
--- NOTE | 2023-06-20 10:42 | P.PN ---
Subjective Progress Note Date: 06/20/23 (Surgery) CHIEF COMPLAINT: Small bowel obstruction HISTORY OF PRESENT ILLNESS: Patient is postop day #1 status post laparotomy with lysis of adhesions and repair of right obturator hernia with mesh. Patient is lying in bed and appears comfortable. She does have pain at the incision site. She is afebrile. She is mildly tachycardic. WBC is up from 10-17.8 Hgb 13.2 platelets 353 sodium was 137 potassium is 3.3 creatinine 0.6 PHYSICAL EXAM: VITAL SIGNS: Reviewed. GENERAL: Well-developed in no acute distress. ABDOMEN: Soft. Mildly distended. Incisional dressing clean dry and intact. Tenderness with palpation around the incision and right lower quadrant NEUROLOGIC: Awake and alert. Hard of hearing. ASSESSMENT: 1. Small bowel obstruction secondary to incarcerated right obturator hernia status post laparotomy with lysis of adhesions and repair of right obturator hernia with mesh 2. Hypokalemia PLAN: -Continue NG tube for decompression -Keep patient nothing by mouth -Continue pain control. Started low-dose IV Toradol. -Encouraged patient to use incentive spirometer -Continue IV fluids -Chemical DVT prophylaxis Objective - Vital Signs Vital signs: Vital Signs Temp 98 F 06/20/23 07:21 Pulse 85 06/20/23 07:21 Resp 17 06/20/23 07:21 BP 137/69 06/20/23 07:21 Pulse Ox 97 06/20/23 07:21 FiO2 Intake & Output 06/19/23 06/20/23 06/20/23 18:59 06:59 18:59 Intake Total 1500 Output Total 125 325 Balance -125 1175 Intake: Intake, IV Titration 1500 Amount ACETAMINOPHEN IV (For NPO 200 ) 1,000 mg In Empty Bag 1 bag @ 400 mls/hr IVPB Q6HR [facility] Rx#:[id number] Piperacillin-Tazobactam 3 100 .375 gm In Sodium Chloride 0.9% 100 ml @ 25 mls/hr IVPB Q8HR [facility] Rx# :[id number] Sodium Chloride 0.9% 1, 1200 000 ml @ 100 mls/hr IV . Q10H [facility] Rx#:[id number] Oral 0 Output: Urine 125 325 Other: Voiding Method Indwelling Catheter Indwelling Catheter Indwelling Catheter - Labs CBC & Chem 7: 06/20/23 06:37 06/20/23 06:37 Labs: Abnormal Lab Results - Last 24 Hours (Table) 06/20/23 06/20/23 Range/Units 06:37 06:37 WBC 11.3 H (3.8-10.6) k/uL RBC 3.24 L (3.80-5.40) m/uL Hgb 10.6 L D (11.4-16.0) gm/dL Hct 32.8 L (34.0-46.0) % MCV 101.1 H (80.0-100.0) fL Neutrophils # 9.3 H (1.3-7.7) k/uL Potassium 3.2 L (3.5-5.1) mmol/L Chloride 113 H (98-107) mmol/L Carbon Dioxide 16 L (22-30) mmol/L BUN 24 H (7-17) mg/dL Glucose 58 L (74-99) mg/dL Calcium 8.2 L (8.4-10.2) mg/dL
[2023-06-20 11:06] LABS: Glucose,Whole Blood 57 mg/dL (70-110)
[2023-06-20] MEDS ORDERED: DEXTROSE 50% SYRINGE 50 ML IVP ONE (11:06)
[2023-06-20 12:08] LABS: Glucose,Whole Blood 174 mg/dL (70-110)
[2023-06-20] MEDS: D5-0.45% NACL WITH KCL 20MEQ/L 1,000 ML IV SCH (12:10)
[2023-06-20] MEDS: POTASSIUM CHLORIDE 10 MEQ in WATER FOR INJECTION 1 100ML.BAG IVPB SCH ×4 (12:10→17:31)
[2023-06-20] MEDS ORDERED: KETOROLAC 15 MG/ML 1 ML VIAL IVP PRN (12:50)
[2023-06-20] MEDS: LATANOPROST 0.005% OPHTH DROPS 2.5 ML BTL BOTH EYES SCH (19:59)
[2023-06-21] MEDS: D5-0.45% NACL WITH KCL 20MEQ/L 1,000 ML IV SCH ×2 (02:17→18:45)
[2023-06-21 06:32] LABS: HCT 32.3 % (34.0-46.0); HGB 10.6 gm/dL (11.4-16.0); Hypochromasia Slight; MCHC 32.7 g/dL (31.0-37.0); MCV 100.8 fL (80.0-100.0); Platelet Count 247 k/uL (150-450); RBC 3.21 m/uL (3.80-5.40); WBC 9.3 k/uL (3.8-10.6)
[2023-06-21 06:39] LABS: African American GFR (CKD) >90 (>60 ml/min/1.73 sqM); Anion Gap 6 mmol/L; Blood Urea Nitrogen 13 mg/dL (7-17); Calcium 8.3 mg/dL (8.4-10.2); Carbon Dioxide 21 mmol/L (22-30); Chloride 109 mmol/L (98-107); Glucose 115 mg/dL (74-99); Non-African American GFR(CKD) >90 (>60 ml/min/1.73 sqM); Potassium 3.3 mmol/L (3.5-5.1); Sodium 136 mmol/L (137-145)
[2023-06-21] MEDS ORDERED: Potassium Replacement Protocol 1 EACH MISC MISCELLANE PRN (06:47)
[2023-06-21] MEDS: PIPERACILLIN-TAZOBACTAM 3.375 GM in SODIUM CHLORIDE 0.9% 100 ML IVPB SCH ×3 (07:10→23:58)
[2023-06-21] MEDS: BRIMONIDINE TARTRATE 0.2% DROPS 5 ML BTL BOTH EYES SCH ×2 (07:10→19:33)
[2023-06-21] MEDS: ENOXAPARIN 40 MG/0.4 ML SYRINGE SQ SCH (07:11)
[2023-06-21] MEDS: FAMOTIDINE 20 MG TAB PO SCH (07:16)
[2023-06-21] MEDS: NON FORMULARY DRUG (Mirabegron [Myrbetriq] 25 MG Tab.Er.24h) PO SCH (07:16)
[2023-06-21] MEDS: ONDANSETRON 4 MG/2 ML VIAL IVP PRN ×2 (07:30→14:45)
[2023-06-21] MEDS: POTASSIUM CHLORIDE 10 MEQ in WATER FOR INJECTION 1 100ML.BAG IVPB SCH ×4 (07:37→14:45)
--- NOTE | 2023-06-21 09:14 | P.PN ---
Subjective Progress Note Date: 06/21/23 Principal diagnosis: Small bowel obstruction Patient doing well today. Denies nausea. Was nauseated yesterday. Passing flatus. She is thirsty. Pain is improved. Objective - Vital Signs Vital signs: Vital Signs Temp 98.6 F 06/21/23 07:15 Pulse 87 06/21/23 07:15 Resp 16 06/21/23 07:15 BP 146/69 06/21/23 07:15 Pulse Ox 95 06/21/23 07:15 FiO2 Intake & Output 06/20/23 06/21/23 06/21/23 19:59 06:59 18:59 Intake Total Output Total Balance Intake: Intake, IV Titration Amount D5-0.45% NaCl with KCl 20Meq/l 1,000 ml @ 75 mls /hr IV .[id number] [facility] Rx#: [id number] Piperacillin-Tazobactam 3 .375 gm In Sodium Chloride 0.9% 100 ml @ 25 mls/hr IVPB Q8HR [facility] Rx# :[id number] Output: Urine Other: Voiding Method Indwelling Catheter - Exam Abdomen: Soft, minimal distention, minimal incisional tenderness, dressing clean and dry - Labs CBC & Chem 7: 06/21/23 05:51 06/21/23 05:51 Labs: Abnormal Lab Results - Last 24 Hours (Table) 06/20/23 06/20/23 06/21/23 Range/Units 11:04 11:55 05:51 RBC 3.21 L (3.80-5.40) m/uL Hgb 10.6 L (11.4-16.0) gm/dL Hct 32.3 L (34.0-46.0) % MCV 100.8 H (80.0-100.0) fL Sodium (137-145) mmol/L Potassium (3.5-5.1) mmol/L Chloride (98-107) mmol/L Carbon Dioxide (22-30) mmol/L Creatinine (0.52-1.04) mg/dL Glucose (74-99) mg/dL POC Glucose (mg/dL) 57 L 174 H (70-110) mg/dL Calcium (8.4-10.2) mg/dL 06/21/23 Range/Units 05:51 RBC (3.80-5.40) m/uL Hgb (11.4-16.0) gm/dL Hct (34.0-46.0) % MCV (80.0-100.0) fL Sodium 136 L (137-145) mmol/L Potassium 3.3 L (3.5-5.1) mmol/L Chloride 109 H (98-107) mmol/L Carbon Dioxide 21 L (22-30) mmol/L Creatinine 0.40 L (0.52-1.04) mg/dL Glucose 115 H (74-99) mg/dL POC Glucose (mg/dL) (70-110) mg/dL Calcium 8.3 L (8.4-10.2) mg/dL Assessment and Plan (1) Small bowel obstruction Current Visit: Yes Status: Acute Code(s): K56.609 - UNSP INTESTNL OBST, UNSP TO PARTIAL VERSUS COMPLETE OBST SNOMED Code(s): 124576039 (2) Obturator hernia with obstruction Narrative/Plan: Patient doing better today. Begin clear liquids. Remove Monterroso catheter. Continue to encourage increasing activity. Current Visit: Yes Status: Acute Code(s): K45.0 - OTH ABDOMINAL HERNIA WITH OBSTRUCTION, WITHOUT GANGRENE SNOMED Code(s): 44460300
[2023-06-21] MEDS: traMADol 50 MG TAB PO PRN (14:43)
--- NOTE | 2023-06-21 16:15 | P.PN ---
Subjective Progress Note Date: 06/21/23 Patient returns 88-year-old female is admitted to the hospital for altered mental status and found to have obturator hernia which was repaired. Postoperatively patient was removed her NG tube patient is remains nothing by mouth does have bowel sounds in move her bowel yet. Patient is on both diuretics and IV fluids both of which will be discontinued. If patient is not started on liquid diet by surgery today or start her on gentle hydration that is 50 mL of normal saline today. Patient is alert and oriented 2 has occasional episodes of confusion appears to have some baseline dementia. Patient has leukocytosis which is improving patient is on Zosyn at this time. 06/21/2023 Patient evaluated today sitting up in the chair family at the bedside. Postoperative obturator hernia repair. Patient reports no BM yet however has reported passing some flatus. She has been advanced to clear liquid diet and tolerating. No nausea or vomiting. Fluids running at D5 1/2 normal saline with potassium. Can decrease rate to 50 mls/hr. White count normalized. Potassium 3.3 today. Review of systems Constitutional: Denied any fatigue denied any fever. Cardio vascular: denied any chest pain, palpitations Gastrointestinal denied any nausea vomiting Pulmonary: Denied any shortness of breath cough Neurologic denied any new focal deficits All inpatient medications were reviewed and appropriate changes in these medications as dictated in the interval history and assessment and plan. PHYSICAL EXAMINATION: GENERAL: The patient is alert and oriented x2, not in any acute distress. Thin built elderly female HEENT: Pupils are round and equally reacting to light. EOMI. No scleral icterus. No conjunctival pallor. Normocephalic, atraumatic. No pharyngeal erythema. No thyromegaly. CARDIOVASCULAR: S1 and S2 present. No murmurs, rubs, or gallops. PULMONARY: Chest is clear to auscultation, no wheezing or crackles. ABDOMEN: Soft, tender, nondistended, normoactive bowel sounds. No palpable organomegaly. Post surgical dressing intact. MUSCULOSKELETAL: No joint swelling or deformity. EXTREMITIES: No cyanosis, clubbing, or pedal edema. NEUROLOGICAL: Gross neurological examination did not reveal any focal deficits. Significant generalized weakness and does have significant muscle atrophy SKIN: No rashes. Assessment and plan -Obturator hernia and bowel obstruction: Patient is status post repair of hernia slowly improvement secondary to age patient didn't require an NG tube anymore does have bowel sounds. Patient continues on IV antibiotics and gentle hydration D5 1/2 NS with 20 of potassium; advanced to clear liquid diet today. Diuretics on hold. -Possible age-related dementia dictation confusional episodes secondary to delirium due to hospitalization -Metabolic encephalopathy on admission secondary to bowel obstruction -Hyperlipidemia -Hx gastroesophageal reflux disease -hx brain aneurysm with clipping Gi prophylaxis DVT prophylaxis: On Lovenox at this time Plan Continue supportive care, clear liquid diet. Repeat labs in AM. PT/OT following. The impression and plan of care has been dictated by Ericka David, Nurse Practitioner as directed. Dr. Letha MD I have performed a history and physical examination and medical decision making of this patient, discussed the same with the dictator, and agree with the dictators assessment and plan as written, documented as a scribe. Based on total visit time, I have performed more than 50% of this visit. Objective - Vital Signs Vital signs: Vital Signs Temp 98.3 F 06/21/23 12:05 Pulse 86 06/21/23 12:05 Resp 16 06/21/23 12:05 BP 164/77 06/21/23 12:05 Pulse Ox 97 06/21/23 12:05 FiO2 Intake & Output 06/20/23 06/21/23 06/21/23 19:59 06:59 18:59 Intake Total Output Total 700 Balance -700 Intake: Intake, IV Titration Amount D5-0.45% NaCl with KCl 20Meq/l 1,000 ml @ 50 mls /hr IV .Q20H [facility] Rx#: [id number] Piperacillin-Tazobactam 3 .375 gm In Sodium Chloride 0.9% 100 ml @ 25 mls/hr IVPB Q8HR [facility] Rx# :[id number] Output: Urine 700 Uretheral (Monterroso) 400 Other: Voiding Method Indwelling Catheter # Voids 1 - Labs CBC & Chem 7: 06/21/23 05:51 06/21/23 05:51 Labs: Abnormal Lab Results - Last 24 Hours (Table) 06/21/23 06/21/23 Range/Units 05:51 05:51 RBC 3.21 L (3.80-5.40) m/uL Hgb 10.6 L (11.4-16.0) gm/dL Hct 32.3 L (34.0-46.0) % MCV 100.8 H (80.0-100.0) fL Sodium 136 L (137-145) mmol/L Potassium 3.3 L (3.5-5.1) mmol/L Chloride 109 H (98-107) mmol/L Carbon Dioxide 21 L (22-30) mmol/L Creatinine 0.40 L (0.52-1.04) mg/dL Glucose 115 H (74-99) mg/dL Calcium 8.3 L (8.4-10.2) mg/dL Assessment and Plan Time with Patient: Less than 30
[2023-06-21] MEDS ORDERED: DEXAMETHASONE SOD PHOSPHATE 4 MG/ML 1 ML VIAL IVP STA (16:55)
[2023-06-21] MEDS: LATANOPROST 0.005% OPHTH DROPS 2.5 ML BTL BOTH EYES SCH (19:34)
[2023-06-22] MEDS: ONDANSETRON 4 MG/2 ML VIAL IVP PRN ×2 (06:23→18:46)
[2023-06-22] MEDS: NON FORMULARY DRUG (Mirabegron [Myrbetriq] 25 MG Tab.Er.24h) PO SCH (07:23)
[2023-06-22] MEDS: FAMOTIDINE 20 MG TAB PO SCH (07:23)
[2023-06-22] MEDS: PIPERACILLIN-TAZOBACTAM 3.375 GM in SODIUM CHLORIDE 0.9% 100 ML IVPB SCH ×3 (07:25→23:28)
[2023-06-22] MEDS: ENOXAPARIN 40 MG/0.4 ML SYRINGE SQ SCH (07:25)
[2023-06-22] MEDS: BRIMONIDINE TARTRATE 0.2% DROPS 5 ML BTL BOTH EYES SCH ×2 (07:25→19:43)
--- NOTE | 2023-06-22 11:58 | P.PN ---
Subjective Progress Note Date: 06/22/23 CHIEF COMPLAINT: Small bowel obstruction HISTORY OF PRESENT ILLNESS: Patient is postop day #4 status post laparotomy with lysis of adhesions and repair of right obturator hernia with mesh. Patient is lying in bed comfortably. She denies any abdominal pain. Denies any nausea or vomiting. She has been hypertensive. She is having flatus. Low urine output improved over the weekend. Afebrile. PHYSICAL EXAM: VITAL SIGNS: Reviewed. GENERAL: Well-developed in no acute distress. ABDOMEN: Soft. Nondistended. Nontender. Incisional dressing clean dry and intact. NEUROLOGIC: Awake and alert. Hard of hearing. ASSESSMENT: 1. Small bowel obstruction secondary to incarcerated right obturator hernia status post laparotomy with lysis of adhesions and repair of right obturator hernia with mesh PLAN: -Advance diet to clear liquids -Continue pain management -Encouraged patient to increase activity level -Continue antibiotics -ordered Incentive spirometer -DVT prophylaxis Lovenox Physician Auto Painter Helper note has been reviewed by physician. Signing provider agrees with the documented findings, assessment, and plan of care. I have personally seen and examined the patient, reviewed the RETAIL AND RESTAURANT ASSOCIATE /PAs history, exam and MDM and agree with the assessment and plan as written. Based on total visit time, I have performed more than 50% of the visit. As above: Patient doing better today. She is hungry. Resume liquid diet. Possible discharge 1 tolerates Objective - Vital Signs Vital signs: Vital Signs Temp 98.9 F 06/22/23 07:04 Pulse 79 06/22/23 07:04 Resp 16 06/22/23 07:04 BP 197/101 06/22/23 07:04 Pulse Ox 94 L 06/22/23 07:04 FiO2 Intake & Output 06/21/23 06/22/23 06/22/23 18:59 06:59 18:59 Intake Total 700 Output Total 700 Balance -700 700 Intake: Intake, IV Titration 700 Amount D5-0.45% NaCl with KCl 600 20Meq/l 1,000 ml @ 50 mls /hr IV .Q20H [facility] Rx#: [id number] Piperacillin-Tazobactam 3 100 .375 gm In Sodium Chloride 0.9% 100 ml @ 25 mls/hr IVPB Q8HR [facility] Rx# :[id number] Oral 0 Output: Urine 700 Uretheral (Monterroso) 400 Other: Voiding Method Indwelling Catheter Bedside Commode Diaper Diaper Incontinent # Voids 1 2 1 - Labs CBC & Chem 7: 06/21/23 05:51 06/21/23 17:22
[2023-06-22] MEDS: D5-0.45% NACL WITH KCL 20MEQ/L 1,000 ML IV SCH (17:34)
[2023-06-22] MEDS: LATANOPROST 0.005% OPHTH DROPS 2.5 ML BTL BOTH EYES SCH (19:43)
[2023-06-23] MEDS: ONDANSETRON 4 MG/2 ML VIAL IVP PRN (06:41)
[2023-06-23] MEDS: traMADol 50 MG TAB PO PRN (08:06)
[2023-06-23] MEDS: BRIMONIDINE TARTRATE 0.2% DROPS 5 ML BTL BOTH EYES SCH ×2 (08:07→21:49)
[2023-06-23] MEDS: D5-0.45% NACL WITH KCL 20MEQ/L 1,000 ML IV SCH (08:07)
[2023-06-23] MEDS: ENOXAPARIN 40 MG/0.4 ML SYRINGE SQ SCH (08:07)
[2023-06-23] MEDS: FAMOTIDINE 20 MG TAB PO SCH (08:07)
[2023-06-23] MEDS: NON FORMULARY DRUG (Mirabegron [Myrbetriq] 25 MG Tab.Er.24h) PO SCH (08:07)
[2023-06-23] MEDS: PIPERACILLIN-TAZOBACTAM 3.375 GM in SODIUM CHLORIDE 0.9% 100 ML IVPB SCH ×2 (08:07→16:39)
[2023-06-23] MEDS ORDERED: hydrALAZINE HCL 20 MG/ML 1 ML VIAL IVP PRN (10:07)
--- NOTE | 2023-06-23 10:07 | P.PN ---
Subjective Progress Note Date: 06/22/23 Fatuma Ramirez, is an 88-year-old female who presented to [facility] emergency room after being found on the floor in her residence with evidence of vomiting and altered mental status. She was evaluated in the emergency room vital examination on presentation revealed a temperature of 97.7 pulse 81 respiration 18 and blood pressure 109/79 pulse ox 99% on room air Laboratory data reveals a white blood count of 10.9 hemoglobin 13.8 platelet count 314 9 BUN 10 creatinine 0.29 Testing in the emergency room revealed computed tomography scan of the brain and the cervical spine revealed no acute intracranial process nonspecific white matter changes and no evidence of cervical spine fracture Patient was admitted to medical floor for further evaluation and treatment. After arriving to the floor patient was having significant pain in the right hip area and the lumbar spine area x-rays were done and no fracture was evident however there was evidence of dilated bowel loops computed tomography scan of the abdomen and pelvis was ordered and surgical consultation was requested. On 06/19/2023 patient was seen and examined on the medical floor she is somnolent arousable in no apparent distress, yesterday she underwent laparotomy with lysis of adhesions and repair of right obturator hernia with mesh by Dr. Awad, this morning patient pulled out her NG tube, vital exam reveals a t emperature of 97.7 pulse 104 respiration 18 and blood pressure 122/65 pulse ox 97% on room air laboratory data reveals a white blood count of 17.8 hemoglobin 13.2 platelet count 353 sodium 137 potassium 3.3 chloride 104 CO2 24 BUN 25 creatinine 0.6 IV fluid was increased to 100 mL/h we'll continue to monitor. On 06/20/2023 patient was seen by Dr. Monae Patient returns 88-year-old female is admitted to the hospital for altered mental status and found to have obturator hernia which was repaired. Postoperatively patient was removed her NG tube patient is remains nothing by mouth does have bowel sounds in move her bowel yet. Patient is on both diuretics and IV fluids both of which will be discontinued. If patient is not started on liquid diet by surgery today or start her on gentle hydration that is 50 mL of normal saline today. Patient is alert and oriented 2 has occasional episodes of confusion appears to have some baseline dementia. Patient has leukocytosis which is improving patient is on Zosyn at this time. Constitutional: Denied any fatigue denied any fever. Cardio vascular: denied any chest pain, palpitations Gastrointestinal denied any nausea vomiting Pulmonary: Denied any shortness of breath cough Neurologic denied any new focal deficits 06/21/2023 Patient evaluated today sitting up in the chair family at the bedside. Postoperative obturator hernia repair. Patient reports no BM yet however has reported passing some flatus. She has been advanced to clear liquid diet and tolerating. No nausea or vomiting. Fluids running at D5 1/2 normal saline with potassium. Can decrease rate to 50 mls/hr. White count normalized. Potassium 3.3 today. On 06/22/2023 patient was seen and examined on the medical floor she is alert and oriented 3 in no apparent distress she was complaining of nausea otherwise she denies any complaints there is no fever or chills no headache or dizziness no chest pain no shortness of breath no abdominal pain no diarrhea and no urinary symptoms Objective - Vital Signs Vital signs: Vital Signs Temp 97.7 F 06/22/23 12:15 Pulse 44 L 06/22/23 12:15 Resp 16 06/22/23 12:15 BP 127/74 06/22/23 12:15 Pulse Ox 95 06/22/23 12:15 FiO2 Intake & Output 06/21/23 06/22/23 06/22/23 18:59 06:59 18:59 Intake Total 700 Output Total 700 Balance -700 700 Intake: Intake, IV Titration 700 Amount D5-0.45% NaCl with KCl 600 20Meq/l 1,000 ml @ 50 mls /hr IV .Q20H [facility] Rx#: [id number] Piperacillin-Tazobactam 3 100 .375 gm In Sodium Chloride 0.9% 100 ml @ 25 mls/hr IVPB Q8HR [facility] Rx# :[id number] Oral 0 Output: Urine 700 Uretheral (Monterroso) 400 Other: Voiding Method Indwelling Catheter Bedside Commode Diaper Diaper Incontinent # Voids 1 2 1 - Exam In general patient is alert and oriented x 3 in no distress HEENT head normocephalic and atraumatic Neck is supple no JVD no goiter no lymphadenopathy no carotid bruit Chest examination is clear to auscultation no crackles no wheezing Cardiac exam reveals regular heart sounds S1 and S2 no gallops no murmurs Abdomen is soft nontender no organomegaly with normal bowel sounds Extremity exam reveals no edema no cyanosis or clubbing Neurological examination reveals no gross focal deficits - Labs CBC & Chem 7: 06/21/23 05:51 06/21/23 17:22 Assessment and Plan Plan: Mental status changes Nausea and vomiting Fall at home 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
--- NOTE | 2023-06-23 11:07 | P.PN ---
Subjective Progress Note Date: 06/23/23 CHIEF COMPLAINT: Small bowel obstruction HISTORY OF PRESENT ILLNESS: Patient is postop day #5 status post laparotomy with lysis of adhesions and repair of right obturator hernia with mesh. Patient complaining of nausea this morning and decrease appetite. She is having flatus. No vomiting. No bowel movement. She denies any abdominal pain. Afebrile. BP elevated. PHYSICAL EXAM: VITAL SIGNS: Reviewed. GENERAL: Well-developed in no acute distress. ABDOMEN: Soft. Nondistended. Nontender. Incisional dressing clean dry and intact. NEUROLOGIC: Awake and alert. Hard of hearing. ASSESSMENT: 1. Small bowel obstruction secondary to incarcerated right obturator hernia status post laparotomy with lysis of adhesions and repair of right obturator hernia with mesh PLAN: -Continue Clear liquids -Add Ensure clear protein drinks -Continue antiemetics as needed -Continue pain management -Encouraged patient to increase activity level -Continue antibiotics -Encouraged patient to use incentive spirometer -DVT prophylaxis Lovenox Physician Cleaner And Preparer note has been reviewed by physician. Signing provider agrees with the documented findings, assessment, and plan of care. I have personally seen and examined the patient, reviewed the CASTING ASSOCIATE /PAs history, exam and MDM and agree with the assessment and plan as written. Based on total visit time, I have performed more than 50% of the visit. As above: Patient complaining of nausea. She describes some bloating. No significant pain. Abdomen mildly distended. Mild tenderness. X-rays reviewed. Free air and dilated bowel loops are noted. Keep nothing by mouth for now. Add Reglan and Dulcolax suppositories. Will follow.. Objective - Vital Signs Vital signs: Vital Signs Temp 98.9 F 06/23/23 07:10 Pulse 96 06/23/23 07:10 Resp 21 06/23/23 07:10 BP 190/85 06/23/23 07:10 Pulse Ox 96 06/23/23 07:10 FiO2 Intake & Output 06/22/23 06/23/23 06/23/23 18:59 06:59 18:59 Other: Voiding Method Diaper Diaper Incontinent Incontinent # Voids 2 1 - Labs CBC & Chem 7: 06/21/23 05:51 06/21/23 17:22
--- NOTE | 2023-06-23 13:34 | XR ---
EXAMINATION TYPE: XR abdomen 2V DATE OF EXAM: 06/23/2023 1:30 PM CLINICAL INDICATION:Female, 88 years old with history of abdominal pain, vomiting; COMPARISON: 03/29/2023 TECHNIQUE: Two views of the abdomen were obtained. FINDINGS: Postsurgical kartik project over the abdomen inferiorly. There is evidence of stacking gas -filled loops of bowel. There is a large amount of stool predominantly in the right colon. Degenerati on changes throughout the spine with scoliosis. Severe degeneration of the left hip. IMPRESSION: Gas-filled bowel throughout the abdomen correlate for ileus. Large amount stool within the right colo n
[2023-06-23] MEDS ORDERED: METOCLOPRAMIDE 5 MG/ML 2 ML VIAL IVP SCH (13:45)
[2023-06-23] MEDS: bisacodyL 10 MG SUPP RECTAL SCH (14:48)
--- NOTE | 2023-06-23 16:12 | P.PN ---
Subjective Progress Note Date: 06/23/23 Fatuma Ramirez, is an 88-year-old female who presented to [facility] emergency room after being found on the floor in her residence with evidence of vomiting and altered mental status. She was evaluated in the emergency room vital examination on presentation revealed a temperature of 97.7 pulse 81 respiration 18 and blood pressure 109/79 pulse ox 99% on room air Laboratory data reveals a white blood count of 10.9 hemoglobin 13.8 platelet count 314 9 BUN 10 creatinine 0.29 Testing in the emergency room revealed computed tomography scan of the brain and the cervical spine revealed no acute intracranial process nonspecific white matter changes and no evidence of cervical spine fracture Patient was admitted to medical floor for further evaluation and treatment. After arriving to the floor patient was having significant pain in the right hip area and the lumbar spine area x-rays were done and no fracture was evident however there was evidence of dilated bowel loops computed tomography scan of the abdomen and pelvis was ordered and surgical consultation was requested. On 06/19/2023 patient was seen and examined on the medical floor she is somnolent arousable in no apparent distress, yesterday she underwent laparotomy with lysis of adhesions and repair of right obturator hernia with mesh by Dr. Awad, this morning patient pulled out her NG tube, vital exam reveals a t emperature of 97.7 pulse 104 respiration 18 and blood pressure 122/65 pulse ox 97% on room air laboratory data reveals a white blood count of 17.8 hemoglobin 13.2 platelet count 353 sodium 137 potassium 3.3 chloride 104 CO2 24 BUN 25 creatinine 0.6 IV fluid was increased to 100 mL/h we'll continue to monitor. On 06/20/2023 patient was seen by Dr. Monae Patient returns 88-year-old female is admitted to the hospital for altered mental status and found to have obturator hernia which was repaired. Postoperatively patient was removed her NG tube patient is remains nothing by mouth does have bowel sounds in move her bowel yet. Patient is on both diuretics and IV fluids both of which will be discontinued. If patient is not started on liquid diet by surgery today or start her on gentle hydration that is 50 mL of normal saline today. Patient is alert and oriented 2 has occasional episodes of confusion appears to have some baseline dementia. Patient has leukocytosis which is improving patient is on Zosyn at this time. Constitutional: Denied any fatigue denied any fever. Cardio vascular: denied any chest pain, palpitations Gastrointestinal denied any nausea vomiting Pulmonary: Denied any shortness of breath cough Neurologic denied any new focal deficits 06/21/2023 Patient evaluated today sitting up in the chair family at the bedside. Postoperative obturator hernia repair. Patient reports no BM yet however has reported passing some flatus. She has been advanced to clear liquid diet and tolerating. No nausea or vomiting. Fluids running at D5 1/2 normal saline with potassium. Can decrease rate to 50 mls/hr. White count normalized. Potassium 3.3 today. On 06/22/2023 patient was seen and examined on the medical floor she is alert and oriented 3 in no apparent distress she was complaining of nausea otherwise she denies any complaints there is no fever or chills no headache or dizziness no chest pain no shortness of breath no abdominal pain no diarrhea and no urinary symptoms. On 06/23/2023 patient was seen on the medical floor today she is more confused and less alert she has not been tolerating clear liquid diet she was evaluated by surgery and a repeat x-ray of the abdomen was ordered. Otherwise no complaints per patient or caregiver at the bedside. Objective - Vital Signs Vital signs: Vital Signs Temp 98.9 F 06/23/23 07:10 Pulse 96 06/23/23 07:10 Resp 21 06/23/23 07:10 BP 190/85 06/23/23 07:10 Pulse Ox 96 06/23/23 07:10 FiO2 Intake & Output 06/22/23 06/23/23 06/23/23 18:59 06:59 18:59 Other: Voiding Method Diaper Diaper Incontinent Incontinent # Voids 2 1 - Exam In general patient is alert and oriented x 3 in no distress HEENT head normocephalic and atraumatic Neck is supple no JVD no goiter no lymphadenopathy no carotid bruit Chest examination is clear to auscultation no crackles no wheezing Cardiac exam reveals regular heart sounds S1 and S2 no gallops no murmurs Abdomen is soft nontender no organomegaly with normal bowel sounds Extremity exam reveals no edema no cyanosis or clubbing Neurological examination reveals no gross focal deficits - Labs CBC & Chem 7: 06/21/23 05:51 06/21/23 17:22 Assessment and Plan Plan: Mental status changes Nausea and vomiting Fall at home 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
[2023-06-23] MEDS: METOCLOPRAMIDE 5 MG/ML 2 ML VIAL IVP SCH (21:48)
[2023-06-23] MEDS: LATANOPROST 0.005% OPHTH DROPS 2.5 ML BTL BOTH EYES SCH (21:49)
[2023-06-24] MEDS: PIPERACILLIN-TAZOBACTAM 3.375 GM in SODIUM CHLORIDE 0.9% 100 ML IVPB SCH ×3 (00:43→15:33)
[2023-06-24] MEDS: METOCLOPRAMIDE 5 MG/ML 2 ML VIAL IVP SCH ×4 (03:02→21:49)
[2023-06-24] MEDS: bisacodyL 10 MG SUPP RECTAL SCH (09:10)
[2023-06-24] MEDS: FAMOTIDINE 20 MG TAB PO SCH (09:10)
[2023-06-24] MEDS: ENOXAPARIN 40 MG/0.4 ML SYRINGE SQ SCH (09:10)
[2023-06-24] MEDS: D5-0.45% NACL WITH KCL 20MEQ/L 1,000 ML IV SCH (09:11)
[2023-06-24] MEDS: NON FORMULARY DRUG (Mirabegron [Myrbetriq] 25 MG Tab.Er.24h) PO SCH (09:11)
[2023-06-24] MEDS: BRIMONIDINE TARTRATE 0.2% DROPS 5 ML BTL BOTH EYES SCH ×2 (09:11→21:50)
[2023-06-24 11:32] LABS: Basophils # (A) 0.02 X 10*3/uL (0.00-0.10); Basophils % (A) 0.3 %; Eosinophils # (A) 0.03 X 10*3/uL (0.04-0.35); Eosinophils % (A) 0.5 %; HCT 34.8 % (37.2-46.3); HGB 11.5 g/dL (12.0-15.0); Lymphocytes # (A) 1.41 X 10*3/uL (0.90-5.00); Lymphocytes % (A) 22.9 %; MCH 31.8 pg (27.0-32.0); MCV 96.1 FL (80.0-97.0); Mean Platelet Volume 10.9 FL (9.5-12.2); Monocytes # (A) 1.09 X 10*3/uL (0.20-1.00); Monocytes % (A) 17.7 %; NRBC Per 100 WBC 0 X 10*3/uL (0.00-0.01); Neutrophils # (A) 3.56 X 10*3/uL (1.80-7.70); Neutrophils % (A) 57.9 %; Platelet Count 335 X 10*3/uL (140-440); RBC 3.62 X 10*6/uL (4.10-5.20); RDW 13.2 % (11.5-14.5); WBC 6.15 X 10*3/uL (4.50-10.00)
--- NOTE | 2023-06-24 13:14 | P.PN ---
Subjective Progress Note Date: 06/24/23 CHIEF COMPLAINT: Small bowel obstruction HISTORY OF PRESENT ILLNESS: Patient is postop day #5 status post laparotomy with lysis of adhesions and repair of right obturator hernia with mesh. Patient did have a good bowel movement. No vomiting. Initially this morning she had been telling nurses she was hungry and wanted to eat. Upon my evaluation patient reports she is again starting to feel nauseous. She has been having intermittent confusion. She does report some mild abdominal discomfort on the right lower side. Afebrile. WBC 6.15 hgb 11.5 PHYSICAL EXAM: VITAL SIGNS: Reviewed. GENERAL: Well-developed in no acute distress. ABDOMEN: Soft. Nondistended. mild tenderness with palpation of right lower quadrant. Incisional dressing clean dry and intact. NEUROLOGIC: Awake. Confused. Hard of hearing. ASSESSMENT: 1. Small bowel obstruction secondary to incarcerated right obturator hernia status post laparotomy with lysis of adhesions and repair of right obturator hernia with mesh 2. Postoperative ileus, expected finding PLAN: -Keep patient nothing by mouth -Continue IV Reglan and duplex suppositories -Encouraged patient to increase activity level and work with physical therapy -Continue antiemetics as needed -Continue pain management -Continue antibiotics -Encouraged patient to use incentive spirometer -DVT prophylaxis Lovenox Physician Survey Research Professor note has been reviewed by physician. Signing provider agrees with the documented findings, assessment, and plan of care. I have personally seen and examined the patient, reviewed the FACTORY LABORER /PAs history, exam and MDM and agree with the assessment and plan as written. Based on total visit time, I have performed more than 50% of the visit. As above: Patient is slightly confused today. Denies pain. Abdomen is less distended than yesterday. She apparently had 2 decent bowel movements today and one large bowel movement yesterday. I suspect the patient's ileus is improving. Keep nothing by mouth for now however. Repeat abdominal x-rays tomorrow. Patient with poor IV access. May require midline or PICC line. Will reassess tomorrow. Objective - Vital Signs Vital signs: Vital Signs Temp 97.7 F 06/24/23 07:05 Pulse 100 06/24/23 07:05 Resp 16 06/24/23 07:05 BP 146/73 06/24/23 07:05 Pulse Ox 96 11/08/23 07:05 FiO2 Intake & Output 06/23/23 06/24/23 06/24/23 18:59 06:59 18:59 Weight 36.3 kg Other: Voiding Method Diaper Diaper Incontinent Incontinent # Voids 3 0 1 # Bowel Movements 1 0 - Labs CBC & Chem 7: 06/24/23 06:21 06/24/23 06:21
[2023-06-24 13:53] LABS: ALT 39 U/L (8-44); AST 31 U/L (13-35); Albumin 3.2 g/dL (3.8-4.9); Albumin/Globulin Ratio 1.78 Ratio (1.60-3.17); Alkaline Phosphatase 97 U/L (41-126); Blood Urea Nitrogen 7.2 mg/dL (9.0-27.0); Calcium 9.1 mg/dL (8.7-10.3); Carbon Dioxide 26.1 mmol/L (21.6-31.8); Chloride 102 mmol/L (96-109); Globulin 1.8 g/dL (1.6-3.3); Glucose 96 mg/dL (70-110); Potassium 3.6 mmol/L (3.5-5.5); Sodium 137 mmol/L (135-145); Total Bilirubin 0.6 mg/dL (0.3-1.2)
--- NOTE | 2023-06-24 14:28 | P.PN ---
Subjective Progress Note Date: 06/24/23 Fatuma Ramirez, is an 88-year-old female who presented to [facility] emergency room after being found on the floor in her residence with evidence of vomiting and altered mental status. She was evaluated in the emergency room vital examination on presentation revealed a temperature of 97.7 pulse 81 respiration 18 and blood pressure 109/79 pulse ox 99% on room air Laboratory data reveals a white blood count of 10.9 hemoglobin 13.8 platelet count 314 9 BUN 10 creatinine 0.29 Testing in the emergency room revealed computed tomography scan of the brain and the cervical spine revealed no acute intracranial process nonspecific white matter changes and no evidence of cervical spine fracture Patient was admitted to medical floor for further evaluation and treatment. After arriving to the floor patient was having significant pain in the right hip area and the lumbar spine area x-rays were done and no fracture was evident however there was evidence of dilated bowel loops computed tomography scan of the abdomen and pelvis was ordered and surgical consultation was requested. On 06/19/2023 patient was seen and examined on the medical floor she is somnolent arousable in no apparent distress, yesterday she underwent laparotomy with lysis of adhesions and repair of right obturator hernia with mesh by Dr. Awad, this morning patient pulled out her NG tube, vital exam reveals a t emperature of 97.7 pulse 104 respiration 18 and blood pressure 122/65 pulse ox 97% on room air laboratory data reveals a white blood count of 17.8 hemoglobin 13.2 platelet count 353 sodium 137 potassium 3.3 chloride 104 CO2 24 BUN 25 creatinine 0.6 IV fluid was increased to 100 mL/h we'll continue to monitor. On 06/20/2023 patient was seen by Dr. Monae Patient returns 88-year-old female is admitted to the hospital for altered mental status and found to have obturator hernia which was repaired. Postoperatively patient was removed her NG tube patient is remains nothing by mouth does have bowel sounds in move her bowel yet. Patient is on both diuretics and IV fluids both of which will be discontinued. If patient is not started on liquid diet by surgery today or start her on gentle hydration that is 50 mL of normal saline today. Patient is alert and oriented 2 has occasional episodes of confusion appears to have some baseline dementia. Patient has leukocytosis which is improving patient is on Zosyn at this time. Constitutional: Denied any fatigue denied any fever. Cardio vascular: denied any chest pain, palpitations Gastrointestinal denied any nausea vomiting Pulmonary: Denied any shortness of breath cough Neurologic denied any new focal deficits 06/21/2023 Patient evaluated today sitting up in the chair family at the bedside. Postoperative obturator hernia repair. Patient reports no BM yet however has reported passing some flatus. She has been advanced to clear liquid diet and tolerating. No nausea or vomiting. Fluids running at D5 1/2 normal saline with potassium. Can decrease rate to 50 mls/hr. White count normalized. Potassium 3.3 today. On 06/22/2023 patient was seen and examined on the medical floor she is alert and oriented 3 in no apparent distress she was complaining of nausea otherwise she denies any complaints there is no fever or chills no headache or dizziness no chest pain no shortness of breath no abdominal pain no diarrhea and no urinary symptoms. On 06/23/2023 patient was seen on the medical floor today she is more confused and less alert she has not been tolerating clear liquid diet she was evaluated by surgery and a repeat x-ray of the abdomen was ordered. Otherwise no complaints per patient or caregiver at the bedside. On 06/24/2023 patient was seen and examined on the medical floor she is alert and oriented today she stated that she had 2 bowel movements today, there is no fever or chills no headache or dizziness no chest pain no shortness of breath no cough no nausea or vomiting no abdominal pain no diarrhea and no urinary symptoms Objective - Vital Signs Vital signs: Vital Signs Temp 98 F 06/24/23 12:15 Pulse 91 06/24/23 12:15 Resp 16 06/24/23 12:15 BP 123/66 06/24/23 12:15 Pulse Ox 98 06/24/23 12:15 FiO2 Intake & Output 06/23/23 06/24/23 06/24/23 18:59 06:59 18:59 Weight 36.3 kg Other: Voiding Method Diaper Diaper Diaper Incontinent Incontinent Incontinent # Voids 3 0 1 # Bowel Movements 1 0 1 - Exam In general patient is alert and oriented x 3 in no distress HEENT head normocephalic and atraumatic Neck is supple no JVD no goiter no lymphadenopathy no carotid bruit Chest examination is clear to auscultation no crackles no wheezing Cardiac exam reveals regular heart sounds S1 and S2 no gallops no murmurs Abdomen is soft nontender no organomegaly with normal bowel sounds Extremity exam reveals no edema no cyanosis or clubbing Neurological examination reveals no gross focal deficits - Labs CBC & Chem 7: 06/24/23 06:21 06/24/23 06:21 Labs: Abnormal Lab Results - Last 24 Hours (Table) 06/24/23 06/24/23 Range/Units 06:21 06:21 RBC 3.62 L (4.10-5.20) X 10*6/uL Hgb 11.5 L (12.0-15.0) g/dL Hct 34.8 L (37.2-46.3) % Monocytes # 1.09 H (0.20-1.00) X 10*3/uL Eosinophils # 0.03 L (0.04-0.35) X 10*3/uL BUN 7.2 L (9.0-27.0) mg/dL Creatinine 0.5 L (0.6-1.5) mg/dL Total Protein 5.0 L (6.2-8.2) g/dL Albumin 3.2 L (3.8-4.9) g/dL Assessment and Plan Plan: Mental status changes Nausea and vomiting Fall at home 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
[2023-06-24] MEDS: LATANOPROST 0.005% OPHTH DROPS 2.5 ML BTL BOTH EYES SCH (21:50)
[2023-06-25] MEDS: PIPERACILLIN-TAZOBACTAM 3.375 GM in SODIUM CHLORIDE 0.9% 100 ML IVPB SCH ×3 (00:04→15:29)
[2023-06-25] MEDS: METOCLOPRAMIDE 5 MG/ML 2 ML VIAL IVP SCH ×4 (03:49→22:30)
[2023-06-25] MEDS: D5-0.45% NACL WITH KCL 20MEQ/L 1,000 ML IV SCH ×2 (05:29→22:33)
[2023-06-25] MEDS: bisacodyL 10 MG SUPP RECTAL SCH (08:50)
[2023-06-25] MEDS: FAMOTIDINE 20 MG TAB PO SCH (08:50)
[2023-06-25] MEDS: ENOXAPARIN 40 MG/0.4 ML SYRINGE SQ SCH (08:51)
[2023-06-25] MEDS: BRIMONIDINE TARTRATE 0.2% DROPS 5 ML BTL BOTH EYES SCH ×2 (08:51→22:32)
[2023-06-25] MEDS: NON FORMULARY DRUG (Mirabegron [Myrbetriq] 25 MG Tab.Er.24h) PO SCH (08:51)
[2023-06-25 09:00] LABS: ALT 37 U/L (8-44); AST 25 U/L (13-35); Albumin 3.2 g/dL (3.8-4.9); Albumin/Globulin Ratio 1.68 Ratio (1.60-3.17); Alkaline Phosphatase 88 U/L (41-126); Blood Urea Nitrogen 5.5 mg/dL (9.0-27.0); Calcium 9.2 mg/dL (8.7-10.3); Carbon Dioxide 25.9 mmol/L (21.6-31.8); Chloride 105 mmol/L (96-109); Globulin 1.9 g/dL (1.6-3.3); Glucose 93 mg/dL (70-110); Sodium 139 mmol/L (135-145); Total Bilirubin 0.7 mg/dL (0.3-1.2); Total Protein 5.1 g/dL (6.2-8.2)
[2023-06-25 09:16] LABS: Basophils # (A) 0.03 X 10*3/uL (0.00-0.10); Basophils % (A) 0.5 %; Eosinophils # (A) 0.05 X 10*3/uL (0.04-0.35); Eosinophils % (A) 0.8 %; HCT 33.6 % (37.2-46.3); HGB 11.1 g/dL (12.0-15.0); Lymphocytes # (A) 1.53 X 10*3/uL (0.90-5.00); Lymphocytes % (A) 24.5 %; MCH 31.6 pg (27.0-32.0); MCV 95.7 FL (80.0-97.0); Mean Platelet Volume 10.2 FL (9.5-12.2); Monocytes # (A) 1.02 X 10*3/uL (0.20-1.00); Monocytes % (A) 16.3 %; NRBC Per 100 WBC 0 X 10*3/uL (0.00-0.01); Neutrophils # (A) 3.57 X 10*3/uL (1.80-7.70); Neutrophils % (A) 57.3 %; Platelet Count 340 X 10*3/uL (140-440); RBC 3.51 X 10*6/uL (4.10-5.20); RDW 13.2 % (11.5-14.5); WBC 6.24 X 10*3/uL (4.50-10.00)
--- NOTE | 2023-06-25 09:43 | XR ---
EXAMINATION TYPE: XR abdomen 2V DATE OF EXAM: 06/25/2023 8:38 AM CLINICAL INDICATION:Female, 88 years old with history of Follow-up ileus; COMPARISON: 06/23/2023 TECHNIQUE: Two views of the abdomen were obtained. FINDINGS: The bowel gas pattern is nonspecific without dilated loops of small or large bowel. There i s no evidence for organomegaly or pneumoperitoneum. The osseous structures are intact. Fecal materi al and gas are demonstrated throughout the colon and rectum. Degeneration changes throughout the spine. Surgical changes with clips in the lower abdomen. Severe d egeneration changes of the hips left greater than right. IMPRESSION: Postsurgical skin kartik without evidence for obstructive bowel pattern.
[2023-06-25] MEDS ORDERED: Potassium Replacement Protocol 1 EACH MISC MISCELLANE PRN (11:46)
[2023-06-25] MEDS: POTASSIUM CHLORIDE ER 20 MEQ TAB.ER PO SCH ×2 (12:17→14:10)
[2023-06-25] MEDS: ONDANSETRON 4 MG/2 ML VIAL IVP PRN (12:17)
[2023-06-25 13:12] VITALS: BMI 13.7
--- NOTE | 2023-06-25 13:47 | P.PN ---
Subjective Progress Note Date: 06/25/23 CHIEF COMPLAINT: Small bowel obstruction HISTORY OF PRESENT ILLNESS: Patient is postop day #6 status post laparotomy with lysis of adhesions and repair of right obturator hernia with mesh. Patient had 2 bowel movements yesterday. She currently has no abdominal pain. She does report nausea this morning. No vomiting. Family is at bedside. Patient's confusion appears better today. Afebrile. WBC 6.24 Hgb 11.1 platelets 340 potassium 3.0. Abdominal x-ray reports postsurgical skin kartik without evidence of bowel obstruction. PHYSICAL EXAM: VITAL SIGNS: Reviewed. GENERAL: Well-developed in no acute distress. ABDOMEN: Soft. Nondistended. Nontender. Incisional dressing dry and intact. Few small areas of saturation noted on dressing NEUROLOGIC: Awake. Confused. Hard of hearing. ASSESSMENT: 1. Small bowel obstruction secondary to incarcerated right obturator hernia status post laparotomy with lysis of adhesions and repair of right obturator hernia with mesh 2. Postoperative ileus, expected finding 3. Hypokalemia PLAN: -Advance diet to clear liquids -Potassium being replaced -Continue IV Reglan and duplex suppositories -Encouraged patient to increase activity level and work with physical therapy -Continue antiemetics as needed -Continue pain management -Continue antibiotics -Encouraged patient to use incentive spirometer -DVT prophylaxis Lovenox Physician Inspector Cold Working note has been reviewed by physician. Signing provider agrees with the documented findings, assessment, and plan of care. I have personally seen and examined the patient, reviewed the CHIEF SALES OFFICER /PAs history, exam and MDM and agree with the assessment and plan as written. Based on total visit time, I have performed more than 50% of the visit. As above: Patient had bowel function. No nausea. Tolerating clear liquids currently. Continue increasing activity. Add lactulose. Objective - Vital Signs Vital signs: Vital Signs Temp 98.4 F 06/25/23 07:10 Pulse 86 06/25/23 07:10 Resp 16 06/25/23 07:10 BP 159/75 06/25/23 07:10 Pulse Ox 95 06/25/23 07:10 FiO2 Intake & Output 06/24/23 06/25/23 06/25/23 18:59 06:59 18:59 Output Total 300 Balance -300 Output: Urine 300 Other: Voiding Method Diaper Diaper Incontinent Incontinent # Voids 1 2 1 # Bowel Movements 1 1 - Labs CBC & Chem 7: 06/25/23 05:49 06/25/23 05:49 Labs: Abnormal Lab Results - Last 24 Hours (Table) 06/24/23 06/24/23 06/25/23 Range/Units 06:21 06:21 05:49 RBC 3.62 L 3.51 L (4.10-5.20) X 10*6/uL Hgb 11.5 L 11.1 L (12.0-15.0) g/dL Hct 34.8 L 33.6 L (37.2-46.3) % Monocytes # 1.09 H 1.02 H (0.20-1.00) X 10*3/uL Eosinophils # 0.03 L (0.04-0.35) X 10*3/uL Potassium (3.5-5.5) mmol/L BUN 7.2 L (9.0-27.0) mg/dL Creatinine 0.5 L (0.6-1.5) mg/dL BUN/Creatinine Ratio (12.00-20.00) Ratio Total Protein 5.0 L (6.2-8.2) g/dL Albumin 3.2 L (3.8-4.9) g/dL 06/25/23 Range/Units 05:49 RBC (4.10-5.20) X 10*6/uL Hgb (12.0-15.0) g/dL Hct (37.2-46.3) % Monocytes # (0.20-1.00) X 10*3/uL Eosinophils # (0.04-0.35) X 10*3/uL Potassium 3.0 L (3.5-5.5) mmol/L BUN 5.5 L (9.0-27.0) mg/dL Creatinine 0.5 L (0.6-1.5) mg/dL BUN/Creatinine Ratio 11.00 L (12.00-20.00) Ratio Total Protein 5.1 L (6.2-8.2) g/dL Albumin 3.2 L (3.8-4.9) g/dL
--- NOTE | 2023-06-25 17:08 | P.PN ---
Subjective Progress Note Date: 06/25/23 Fatuma Ramirez, is an 88-year-old female who presented to [facility] emergency room after being found on the floor in her residence with evidence of vomiting and altered mental status. She was evaluated in the emergency room vital examination on presentation revealed a temperature of 97.7 pulse 81 respiration 18 and blood pressure 109/79 pulse ox 99% on room air Laboratory data reveals a white blood count of 10.9 hemoglobin 13.8 platelet count 314 9 BUN 10 creatinine 0.29 Testing in the emergency room revealed computed tomography scan of the brain and the cervical spine revealed no acute intracranial process nonspecific white matter changes and no evidence of cervical spine fracture Patient was admitted to medical floor for further evaluation and treatment. After arriving to the floor patient was having significant pain in the right hip area and the lumbar spine area x-rays were done and no fracture was evident however there was evidence of dilated bowel loops computed tomography scan of the abdomen and pelvis was ordered and surgical consultation was requested. On 06/19/2023 patient was seen and examined on the medical floor she is somnolent arousable in no apparent distress, yesterday she underwent laparotomy with lysis of adhesions and repair of right obturator hernia with mesh by Dr. Awad, this morning patient pulled out her NG tube, vital exam reveals a t emperature of 97.7 pulse 104 respiration 18 and blood pressure 122/65 pulse ox 97% on room air laboratory data reveals a white blood count of 17.8 hemoglobin 13.2 platelet count 353 sodium 137 potassium 3.3 chloride 104 CO2 24 BUN 25 creatinine 0.6 IV fluid was increased to 100 mL/h we'll continue to monitor. On 06/20/2023 patient was seen by Dr. Monae Patient returns 88-year-old female is admitted to the hospital for altered mental status and found to have obturator hernia which was repaired. Postoperatively patient was removed her NG tube patient is remains nothing by mouth does have bowel sounds in move her bowel yet. Patient is on both diuretics and IV fluids both of which will be discontinued. If patient is not started on liquid diet by surgery today or start her on gentle hydration that is 50 mL of normal saline today. Patient is alert and oriented 2 has occasional episodes of confusion appears to have some baseline dementia. Patient has leukocytosis which is improving patient is on Zosyn at this time. Constitutional: Denied any fatigue denied any fever. Cardio vascular: denied any chest pain, palpitations Gastrointestinal denied any nausea vomiting Pulmonary: Denied any shortness of breath cough Neurologic denied any new focal deficits 06/21/2023 Patient evaluated today sitting up in the chair family at the bedside. Postoperative obturator hernia repair. Patient reports no BM yet however has reported passing some flatus. She has been advanced to clear liquid diet and tolerating. No nausea or vomiting. Fluids running at D5 1/2 normal saline with potassium. Can decrease rate to 50 mls/hr. White count normalized. Potassium 3.3 today. On 06/22/2023 patient was seen and examined on the medical floor she is alert and oriented 3 in no apparent distress she was complaining of nausea otherwise she denies any complaints there is no fever or chills no headache or dizziness no chest pain no shortness of breath no abdominal pain no diarrhea and no urinary symptoms. On 06/23/2023 patient was seen on the medical floor today she is more confused and less alert she has not been tolerating clear liquid diet she was evaluated by surgery and a repeat x-ray of the abdomen was ordered. Otherwise no complaints per patient or caregiver at the bedside. On 06/24/2023 patient was seen and examined on the medical floor she is alert and oriented today she stated that she had 2 bowel movements today, there is no fever or chills no headache or dizziness no chest pain no shortness of breath no cough no nausea or vomiting no abdominal pain no diarrhea and no urinary symptoms. On 06/25/2023 patient was seen and examined on the medical floor she is alert and oriented 3 in no apparent distress there is no fever or chills no headache or dizziness no chest pain no shortness of breath no cough no nausea or vomiting no abdominal pain no diarrhea and no urinary symptoms. She feels better today she is tolerating clear liquid diet. Objective - Vital Signs Vital signs: Vital Signs Temp 98.4 F 06/25/23 07:10 Pulse 86 06/25/23 07:10 Resp 16 06/25/23 07:10 BP 159/75 06/25/23 07:10 Pulse Ox 95 06/25/23 07:10 FiO2 Intake & Output 06/24/23 06/25/23 06/25/23 18:59 06:59 18:59 Output Total 300 Balance -300 Output: Urine 300 Other: Voiding Method Diaper Diaper Incontinent Incontinent # Voids 1 2 1 # Bowel Movements 1 1 - Exam In general patient is alert and oriented x 3 in no distress HEENT head normocephalic and atraumatic Neck is supple no JVD no goiter no lymphadenopathy no carotid bruit Chest examination is clear to auscultation no crackles no wheezing Cardiac exam reveals regular heart sounds S1 and S2 no gallops no murmurs Abdomen is soft nontender no organomegaly with normal bowel sounds Extremity exam reveals no edema no cyanosis or clubbing Neurological examination reveals no gross focal deficits - Labs CBC & Chem 7: 06/25/23 05:49 06/25/23 05:49 Labs: Abnormal Lab Results - Last 24 Hours (Table) 06/24/23 06/24/23 06/25/23 Range/Units 06:21 06:21 05:49 RBC 3.62 L 3.51 L (4.10-5.20) X 10*6/uL Hgb 11.5 L 11.1 L (12.0-15.0) g/dL Hct 34.8 L 33.6 L (37.2-46.3) % Monocytes # 1.09 H 1.02 H (0.20-1.00) X 10*3/uL Eosinophils # 0.03 L (0.04-0.35) X 10*3/uL Potassium (3.5-5.5) mmol/L BUN 7.2 L (9.0-27.0) mg/dL Creatinine 0.5 L (0.6-1.5) mg/dL BUN/Creatinine Ratio (12.00-20.00) Ratio Total Protein 5.0 L (6.2-8.2) g/dL Albumin 3.2 L (3.8-4.9) g/dL 06/25/23 Range/Units 05:49 RBC (4.10-5.20) X 10*6/uL Hgb (12.0-15.0) g/dL Hct (37.2-46.3) % Monocytes # (0.20-1.00) X 10*3/uL Eosinophils # (0.04-0.35) X 10*3/uL Potassium 3.0 L (3.5-5.5) mmol/L BUN 5.5 L (9.0-27.0) mg/dL Creatinine 0.5 L (0.6-1.5) mg/dL BUN/Creatinine Ratio 11.00 L (12.00-20.00) Ratio Total Protein 5.1 L (6.2-8.2) g/dL Albumin 3.2 L (3.8-4.9) g/dL Assessment and Plan Plan: Mental status changes Nausea and vomiting Fall at home 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
[2023-06-25] MEDS: LACTULOSE 20 GM/30 ML CUP PO SCH (18:25)
[2023-06-25] MEDS: LATANOPROST 0.005% OPHTH DROPS 2.5 ML BTL BOTH EYES SCH (22:32)
[2023-06-26] MEDS: PIPERACILLIN-TAZOBACTAM 3.375 GM in SODIUM CHLORIDE 0.9% 100 ML IVPB SCH ×3 (01:04→17:30)
[2023-06-26] MEDS: METOCLOPRAMIDE 5 MG/ML 2 ML VIAL IVP SCH ×4 (03:16→20:10)
[2023-06-26] MEDS: POTASSIUM CHLORIDE ER 20 MEQ TAB.ER PO SCH ×2 (05:06→05:46)
[2023-06-26 09:02] LABS: ALT 34 U/L (8-44); AST 20 U/L (13-35); Albumin 3.4 g/dL (3.8-4.9); Alkaline Phosphatase 88 U/L (41-126); BUN/Creat Ratio <7.00 Ratio (12.00-20.00); Blood Urea Nitrogen <3.5 mg/dL (9.0-27.0); Calcium 9.4 mg/dL (8.7-10.3); Carbon Dioxide 25.4 mmol/L (21.6-31.8); Chloride 104 mmol/L (96-109); Glucose 108 mg/dL (70-110); Magnesium 1.9 mg/dL (1.5-2.4); Potassium 3.8 mmol/L (3.5-5.5); Sodium 138 mmol/L (135-145); Total Bilirubin 0.7 mg/dL (0.3-1.2); Total Protein 5.4 g/dL (6.2-8.2)
[2023-06-26] MEDS: ENOXAPARIN 40 MG/0.4 ML SYRINGE SQ SCH (09:48)
[2023-06-26] MEDS: FAMOTIDINE 20 MG TAB PO SCH (09:48)
[2023-06-26] MEDS: LACTULOSE 20 GM/30 ML CUP PO SCH (09:48)
[2023-06-26 09:52] LABS: Basophils # (A) 0.04 X 10*3/uL (0.00-0.10); Basophils % (A) 0.7 %; Eosinophils % (A) 1.8 %; HCT 34.4 % (37.2-46.3); HGB 11.1 g/dL (12.0-15.0); Lymphocytes # (A) 1.26 X 10*3/uL (0.90-5.00); Lymphocytes % (A) 22.2 %; MCH 31.4 pg (27.0-32.0); MCHC 32.3 g/dL (32.0-37.0); MCV 97.5 FL (80.0-97.0); Mean Platelet Volume 10.2 FL (9.5-12.2); Monocytes # (A) 0.97 X 10*3/uL (0.20-1.00); Monocytes % (A) 17.1 %; NRBC Per 100 WBC 0 X 10*3/uL (0.00-0.01); Neutrophils # (A) 3.27 X 10*3/uL (1.80-7.70); Neutrophils % (A) 57.5 %; Platelet Count 345 X 10*3/uL (140-440); RBC 3.53 X 10*6/uL (4.10-5.20); RDW 13.4 % (11.5-14.5); WBC 5.68 X 10*3/uL (4.50-10.00)
[2023-06-26] MEDS: BRIMONIDINE TARTRATE 0.2% DROPS 5 ML BTL BOTH EYES SCH ×2 (09:52→20:09)
[2023-06-26] MEDS: bisacodyL 10 MG SUPP RECTAL SCH (09:52)
[2023-06-26] MEDS: NON FORMULARY DRUG (Mirabegron [Myrbetriq] 25 MG Tab.Er.24h) PO SCH (10:08)
--- NOTE | 2023-06-26 10:48 | P.PN ---
Subjective Progress Note Date: 06/26/23 Fatuma Ramirez, is an 88-year-old female who presented to [facility] emergency room after being found on the floor in her residence with evidence of vomiting and altered mental status. She was evaluated in the emergency room vital examination on presentation revealed a temperature of 97.7 pulse 81 respiration 18 and blood pressure 109/79 pulse ox 99% on room air Laboratory data reveals a white blood count of 10.9 hemoglobin 13.8 platelet count 314 9 BUN 10 creatinine 0.29 Testing in the emergency room revealed computed tomography scan of the brain and the cervical spine revealed no acute intracranial process nonspecific white matter changes and no evidence of cervical spine fracture Patient was admitted to medical floor for further evaluation and treatment. After arriving to the floor patient was having significant pain in the right hip area and the lumbar spine area x-rays were done and no fracture was evident however there was evidence of dilated bowel loops computed tomography scan of the abdomen and pelvis was ordered and surgical consultation was requested. On 06/19/2023 patient was seen and examined on the medical floor she is somnolent arousable in no apparent distress, yesterday she underwent laparotomy with lysis of adhesions and repair of right obturator hernia with mesh by Dr. Awad, this morning patient pulled out her NG tube, vital exam reveals a t emperature of 97.7 pulse 104 respiration 18 and blood pressure 122/65 pulse ox 97% on room air laboratory data reveals a white blood count of 17.8 hemoglobin 13.2 platelet count 353 sodium 137 potassium 3.3 chloride 104 CO2 24 BUN 25 creatinine 0.6 IV fluid was increased to 100 mL/h we'll continue to monitor. On 06/20/2023 patient was seen by Dr. Monae Patient returns 88-year-old female is admitted to the hospital for altered mental status and found to have obturator hernia which was repaired. Postoperatively patient was removed her NG tube patient is remains nothing by mouth does have bowel sounds in move her bowel yet. Patient is on both diuretics and IV fluids both of which will be discontinued. If patient is not started on liquid diet by surgery today or start her on gentle hydration that is 50 mL of normal saline today. Patient is alert and oriented 2 has occasional episodes of confusion appears to have some baseline dementia. Patient has leukocytosis which is improving patient is on Zosyn at this time. Constitutional: Denied any fatigue denied any fever. Cardio vascular: denied any chest pain, palpitations Gastrointestinal denied any nausea vomiting Pulmonary: Denied any shortness of breath cough Neurologic denied any new focal deficits 06/21/2023 Patient evaluated today sitting up in the chair family at the bedside. Postoperative obturator hernia repair. Patient reports no BM yet however has reported passing some flatus. She has been advanced to clear liquid diet and tolerating. No nausea or vomiting. Fluids running at D5 1/2 normal saline with potassium. Can decrease rate to 50 mls/hr. White count normalized. Potassium 3.3 today. On 06/22/2023 patient was seen and examined on the medical floor she is alert and oriented 3 in no apparent distress she was complaining of nausea otherwise she denies any complaints there is no fever or chills no headache or dizziness no chest pain no shortness of breath no abdominal pain no diarrhea and no urinary symptoms. On 06/23/2023 patient was seen on the medical floor today she is more confused and less alert she has not been tolerating clear liquid diet she was evaluated by surgery and a repeat x-ray of the abdomen was ordered. Otherwise no complaints per patient or caregiver at the bedside. On 06/24/2023 patient was seen and examined on the medical floor she is alert and oriented today she stated that she had 2 bowel movements today, there is no fever or chills no headache or dizziness no chest pain no shortness of breath no cough no nausea or vomiting no abdominal pain no diarrhea and no urinary symptoms. On 06/25/2023 patient was seen and examined on the medical floor she is alert and oriented 3 in no apparent distress there is no fever or chills no headache or dizziness no chest pain no shortness of breath no cough no nausea or vomiting no abdominal pain no diarrhea and no urinary symptoms. She feels better today she is tolerating clear liquid diet. On 06/26/2023 patient is alert and oriented 3. Patient tolerating clear liquid diet. Patient denies chest pain or shortness of breath. Patient denies nausea vomiting or diarrhea. Patient denies any urinary burning or frequency. Current vital signs temp 98.3, heart rate 86, respiratory rate 16, blood pressure 153/78 with a pulse ox of 94% Objective - Vital Signs Vital signs: Vital Signs Temp 98.3 F 06/26/23 07:21 Pulse 86 06/26/23 07:21 Resp 16 06/26/23 07:21 BP 153/78 06/26/23 07:21 Pulse Ox 94 L 06/26/23 07:21 FiO2 Intake & Output 06/25/23 06/26/23 06/26/23 18:59 06:59 18:59 Intake Total 590 Balance 590 Weight 36.3 kg Intake: Oral 590 Other: Voiding Method Diaper Diaper Incontinent Incontinent # Voids 1 2 1 # Bowel Movements 1 - Exam In general patient is alert and oriented x 3 in no distress HEENT head normocephalic and atraumatic Neck is supple no JVD no goiter no lymphadenopathy no carotid bruit Chest examination is clear to auscultation no crackles no wheezing Cardiac exam reveals regular heart sounds S1 and S2 no gallops no murmurs Abdomen is soft nontender no organomegaly with normal bowel sounds Extremity exam reveals no edema no cyanosis or clubbing Neurological examination reveals no gross focal deficits - Labs CBC & Chem 7: 06/26/23 05:46 06/26/23 09:05 Labs: Abnormal Lab Results - Last 24 Hours (Table) 06/25/23 06/26/23 06/26/23 Range/Units 18:49 05:46 05:46 RBC 3.53 L (4.10-5.20) X 10*6/uL Hgb 11.1 L (12.0-15.0) g/dL Hct 34.4 L (37.2-46.3) % MCV 97.5 H (80.0-97.0) FL Potassium 3.3 L (3.5-5.1) mmol/L BUN <3.5 L (9.0-27.0) mg/dL Creatinine 0.5 L (0.6-1.5) mg/dL BUN/Creatinine Ratio <7.00 L (12.00-20.00) Ratio Total Protein 5.4 L (6.2-8.2) g/dL Albumin 3.4 L (3.8-4.9) g/dL Assessment and Plan Plan: Mental status changes Nausea and vomiting Fall at home Evidence of right obturator canal hernia with small bowel obstruction. Status post surgical repair postop day 6 Recent admission for urinary tract infection with sepsis Underlying history of hypertension Underlying history of hyperlipidemia Underlying history of gastroesophageal reflux disease This time patient is admitted to medical floor Maintained on clear liquid diet Maintained on IV Zosyn Repeat labs ordered PT OT and criminal justice social worker consulted
--- NOTE | 2023-06-26 12:42 | P.PN ---
Subjective Progress Note Date: 06/26/23 CHIEF COMPLAINT: Small bowel obstruction HISTORY OF PRESENT ILLNESS: Patient is postop day #7 status post laparotomy with lysis of adhesions and repair of right obturator hernia with mesh. Patient is sitting up at bedside chair. She denies any abdominal pain. She reports a small bowel movement yesterday. She is having flatus. She is tolerating the clear liquids. She denies any nausea or vomiting. She was started on lactulose. Afebrile. WBC 5.68 Hgb 11.1 potassium 4.2 PHYSICAL EXAM: VITAL SIGNS: Reviewed. GENERAL: Well-developed in no acute distress. ABDOMEN: Soft. Nondistended. Nontender. Incisional dressing dry and intact. Few small areas of saturation noted on dressing NEUROLOGIC: Awake and alert. Answering questions appropriately. hard of hearing ASSESSMENT: 1. Small bowel obstruction secondary to incarcerated right obturator hernia status post laparotomy with lysis of adhesions and repair of right obturator hernia with mesh 2. Postoperative ileus, expected finding 3. Hypokalemia resolved PLAN: -Advance diet to Full liquids -Continue IV Reglan, duplex suppositories and lactulose -Encouraged patient to increase activity level and work with physical therapy -Continue antiemetics as needed -Continue pain management as needed -Continue antibiotics -Encouraged patient to use incentive spirometer -DVT prophylaxis Lovenox Physician Stove Installer note has been reviewed by physician. Signing provider agrees with the documented findings, assessment, and plan of care. I have personally seen and examined the patient, reviewed the SPECIAL PROCEDURE TECH /PAs history, exam and MDM and agree with the assessment and plan as written. Based on total visit time, I have performed more than 50% of the visit. As above: Patient doing well today. Tolerating full liquids currently. No p ain. Abdomen is soft with minimal distention. Continue full liquids. Advance diet slowly. Anticipate transfer to rehab on Thursday. Objective - Vital Signs Vital signs: Vital Signs Temp 98.3 F 06/26/23 07:21 Pulse 86 06/26/23 07:21 Resp 16 06/26/23 07:21 BP 153/78 06/26/23 07:21 Pulse Ox 94 L 06/26/23 07:21 FiO2 Intake & Output 06/25/23 06/26/23 06/26/23 18:59 06:59 18:59 Intake Total 590 Balance 590 Weight 36.3 kg Intake: Oral 590 Other: Voiding Method Diaper Diaper Incontinent Incontinent # Voids 1 2 2 # Bowel Movements 1 - Labs CBC & Chem 7: 06/26/23 05:46 06/26/23 09:05 Labs: Abnormal Lab Results - Last 24 Hours (Table) 06/25/23 06/26/23 06/26/23 Range/Units 18:49 05:46 05:46 RBC 3.53 L (4.10-5.20) X 10*6/uL Hgb 11.1 L (12.0-15.0) g/dL Hct 34.4 L (37.2-46.3) % MCV 97.5 H (80.0-97.0) FL Potassium 3.3 L (3.5-5.1) mmol/L BUN <3.5 L (9.0-27.0) mg/dL Creatinine 0.5 L (0.6-1.5) mg/dL BUN/Creatinine Ratio <7.00 L (12.00-20.00) Ratio Total Protein 5.4 L (6.2-8.2) g/dL Albumin 3.4 L (3.8-4.9) g/dL
[2023-06-26] MEDS: D5-0.45% NACL WITH KCL 20MEQ/L 1,000 ML IV SCH (17:34)
[2023-06-26] MEDS: LATANOPROST 0.005% OPHTH DROPS 2.5 ML BTL BOTH EYES SCH (20:09)
[2023-06-27] MEDS: PIPERACILLIN-TAZOBACTAM 3.375 GM in SODIUM CHLORIDE 0.9% 100 ML IVPB SCH ×4 (00:06→23:12)
[2023-06-27] MEDS: METOCLOPRAMIDE 5 MG/ML 2 ML VIAL IVP SCH ×4 (03:05→20:49)
[2023-06-27] MEDS: bisacodyL 10 MG SUPP RECTAL SCH (08:21)
[2023-06-27] MEDS: ENOXAPARIN 40 MG/0.4 ML SYRINGE SQ SCH (08:22)
[2023-06-27] MEDS: BRIMONIDINE TARTRATE 0.2% DROPS 5 ML BTL BOTH EYES SCH ×2 (08:22→20:48)
[2023-06-27] MEDS: LACTULOSE 20 GM/30 ML CUP PO SCH (08:22)
[2023-06-27] MEDS: FAMOTIDINE 20 MG TAB PO SCH (08:22)
[2023-06-27] MEDS: NON FORMULARY DRUG (Mirabegron [Myrbetriq] 25 MG Tab.Er.24h) PO SCH (08:23)
[2023-06-27 11:04] LABS: Basophils # (A) 0.04 X 10*3/uL (0.00-0.10); Basophils % (A) 0.6 %; Eosinophils # (A) 0.19 X 10*3/uL (0.04-0.35); Eosinophils % (A) 2.8 %; HCT 34.7 % (37.2-46.3); HGB 11.2 g/dL (12.0-15.0); Lymphocytes # (A) 1.48 X 10*3/uL (0.90-5.00); MCH 31.5 pg (27.0-32.0); MCHC 32.3 g/dL (32.0-37.0); MCV 97.7 FL (80.0-97.0); Mean Platelet Volume 10.5 FL (9.5-12.2); Monocytes # (A) 1.06 X 10*3/uL (0.20-1.00); Monocytes % (A) 15.7 %; NRBC Per 100 WBC 0 X 10*3/uL (0.00-0.01); Neutrophils % (A) 57.9 %; Platelet Count 390 X 10*3/uL (140-440); RBC 3.55 X 10*6/uL (4.10-5.20); RDW 13.5 % (11.5-14.5); WBC 6.74 X 10*3/uL (4.50-10.00)
[2023-06-27 11:12] LABS: ALT 26 U/L (8-44); AST 15 U/L (13-35); Albumin 3.3 g/dL (3.8-4.9); Albumin/Globulin Ratio 1.65 Ratio (1.60-3.17); Alkaline Phosphatase 79 U/L (41-126); BUN/Creat Ratio <7.00 Ratio (12.00-20.00); Blood Urea Nitrogen <3.5 mg/dL (9.0-27.0); Calcium 9.3 mg/dL (8.7-10.3); Carbon Dioxide 23.7 mmol/L (21.6-31.8); Chloride 104 mmol/L (96-109); Glucose 97 mg/dL (70-110); Potassium 3.9 mmol/L (3.5-5.5); Sodium 138 mmol/L (135-145); Total Bilirubin 0.4 mg/dL (0.3-1.2); Total Protein 5.3 g/dL (6.2-8.2)
--- NOTE | 2023-06-27 11:30 | P.PN ---
Subjective Progress Note Date: 06/27/23 Fatuma Ramirez, is an 88-year-old female who presented to [facility] emergency room after being found on the floor in her residence with evidence of vomiting and altered mental status. She was evaluated in the emergency room vital examination on presentation revealed a temperature of 97.7 pulse 81 respiration 18 and blood pressure 109/79 pulse ox 99% on room air Laboratory data reveals a white blood count of 10.9 hemoglobin 13.8 platelet count 314 9 BUN 10 creatinine 0.29 Testing in the emergency room revealed computed tomography scan of the brain and the cervical spine revealed no acute intracranial process nonspecific white matter changes and no evidence of cervical spine fracture Patient was admitted to medical floor for further evaluation and treatment. After arriving to the floor patient was having significant pain in the right hip area and the lumbar spine area x-rays were done and no fracture was evident however there was evidence of dilated bowel loops computed tomography scan of the abdomen and pelvis was ordered and surgical consultation was requested. On 06/19/2023 patient was seen and examined on the medical floor she is somnolent arousable in no apparent distress, yesterday she underwent laparotomy with lysis of adhesions and repair of right obturator hernia with mesh by Dr. Awad, this morning patient pulled out her NG tube, vital exam reveals a t emperature of 97.7 pulse 104 respiration 18 and blood pressure 122/65 pulse ox 97% on room air laboratory data reveals a white blood count of 17.8 hemoglobin 13.2 platelet count 353 sodium 137 potassium 3.3 chloride 104 CO2 24 BUN 25 creatinine 0.6 IV fluid was increased to 100 mL/h we'll continue to monitor. On 06/20/2023 patient was seen by Dr. Monae Patient returns 88-year-old female is admitted to the hospital for altered mental status and found to have obturator hernia which was repaired. Postoperatively patient was removed her NG tube patient is remains nothing by mouth does have bowel sounds in move her bowel yet. Patient is on both diuretics and IV fluids both of which will be discontinued. If patient is not started on liquid diet by surgery today or start her on gentle hydration that is 50 mL of normal saline today. Patient is alert and oriented 2 has occasional episodes of confusion appears to have some baseline dementia. Patient has leukocytosis which is improving patient is on Zosyn at this time. Constitutional: Denied any fatigue denied any fever. Cardio vascular: denied any chest pain, palpitations Gastrointestinal denied any nausea vomiting Pulmonary: Denied any shortness of breath cough Neurologic denied any new focal deficits 06/21/2023 Patient evaluated today sitting up in the chair family at the bedside. Postoperative obturator hernia repair. Patient reports no BM yet however has reported passing some flatus. She has been advanced to clear liquid diet and tolerating. No nausea or vomiting. Fluids running at D5 1/2 normal saline with potassium. Can decrease rate to 50 mls/hr. White count normalized. Potassium 3.3 today. On 06/22/2023 patient was seen and examined on the medical floor she is alert and oriented 3 in no apparent distress she was complaining of nausea otherwise she denies any complaints there is no fever or chills no headache or dizziness no chest pain no shortness of breath no abdominal pain no diarrhea and no urinary symptoms. On 06/23/2023 patient was seen on the medical floor today she is more confused and less alert she has not been tolerating clear liquid diet she was evaluated by surgery and a repeat x-ray of the abdomen was ordered. Otherwise no complaints per patient or caregiver at the bedside. On 06/24/2023 patient was seen and examined on the medical floor she is alert and oriented today she stated that she had 2 bowel movements today, there is no fever or chills no headache or dizziness no chest pain no shortness of breath no cough no nausea or vomiting no abdominal pain no diarrhea and no urinary symptoms. On 06/25/2023 patient was seen and examined on the medical floor she is alert and oriented 3 in no apparent distress there is no fever or chills no headache or dizziness no chest pain no shortness of breath no cough no nausea or vomiting no abdominal pain no diarrhea and no urinary symptoms. She feels better today she is tolerating clear liquid diet. On 06/26/2023 patient is alert and oriented 3. Patient tolerating clear liquid diet. Patient denies chest pain or shortness of breath. Patient denies nausea vomiting or diarrhea. Patient denies any urinary burning or frequency. Current vital signs temp 98.3, heart rate 86, respiratory rate 16, blood pressure 153/78 with a pulse ox of 94% On 06/27/2023 patient was seen and examined on the medical floor she is alert and oriented 3 in no apparent distress there is no fever or chills no headache or dizziness no chest pain no shortness of breath no cough no nausea or vomiting no abdominal pain no diarrhea and no urinary symptoms. She is tolerating clear liquid diet well and having bowel movement, will continue to advance diet slowly and increase activity. Objective - Vital Signs Vital signs: Vital Signs Temp 98.0 F 06/27/23 07:21 Pulse 79 06/27/23 07:21 Resp 17 06/27/23 07:21 BP 147/66 06/27/23 07:21 Pulse Ox 96 06/27/23 07:21 FiO2 Intake & Output 06/26/23 06/27/23 06/27/23 18:59 06:59 18:59 Intake Total 1520 940 Balance 1520 940 Weight 36.3 kg Intake: Intake, IV Titration 800 700 Amount D5-0.45% NaCl with KCl 600 600 20Meq/l 1,000 ml @ 50 mls /hr IV .Q20H [facility] Rx#: [id number] Piperacillin-Tazobactam 3 200 100 .375 gm In Sodium Chloride 0.9% 100 ml @ 25 mls/hr IVPB Q8HR [facility] Rx# :[id number] Oral 720 240 Other: Voiding Method Diaper Bedside Commode Bedside Commode Incontinent Diaper Diaper Incontinent Incontinent # Voids 1 1 - Exam In general patient is alert and oriented x 3 in no distress HEENT head normocephalic and atraumatic Neck is supple no JVD no goiter no lymphadenopathy no carotid bruit Chest examination is clear to auscultation no crackles no wheezing Cardiac exam reveals regular heart sounds S1 and S2 no gallops no murmurs Abdomen is soft nontender no organomegaly with normal bowel sounds Extremity exam reveals no edema no cyanosis or clubbing Neurological examination reveals no gross focal deficits - Labs CBC & Chem 7: 06/27/23 04:32 06/27/23 04:32 Assessment and Plan Plan: Mental status changes Nausea and vomiting Fall at home Evidence of right obturator canal hernia with small bowel obstruction. Status post surgical repair postop day 6 Recent admission for urinary tract infection with sepsis Underlying history of hypertension Underlying history of hyperlipidemia Underlying history of gastroesophageal reflux disease This time patient is admitted to medical floor Maintained on clear liquid diet Maintained on IV Zosyn Repeat labs ordered PT OT and high school social science teacher consulted
--- NOTE | 2023-06-27 11:50 | P.PN ---
Progress Note - Text Progress Note Date: 06/27/23 Patient is status post exploratory laparotomy for hernia repair with mesh ileus is resolved. Abdomen is soft.
[2023-06-27] MEDS: D5-0.45% NACL WITH KCL 20MEQ/L 1,000 ML IV SCH (14:03)
[2023-06-27] MEDS: LATANOPROST 0.005% OPHTH DROPS 2.5 ML BTL BOTH EYES SCH (20:48)
[2023-06-28] MEDS: METOCLOPRAMIDE 5 MG/ML 2 ML VIAL IVP SCH ×4 (02:34→20:28)
[2023-06-28] MEDS: D5-0.45% NACL WITH KCL 20MEQ/L 1,000 ML IV SCH (06:47)
[2023-06-28] MEDS: BRIMONIDINE TARTRATE 0.2% DROPS 5 ML BTL BOTH EYES SCH ×2 (09:13→20:28)
[2023-06-28] MEDS: LACTULOSE 20 GM/30 ML CUP PO SCH (09:14)
[2023-06-28] MEDS: bisacodyL 10 MG SUPP RECTAL SCH (09:14)
[2023-06-28] MEDS: ENOXAPARIN 40 MG/0.4 ML SYRINGE SQ SCH (09:14)
[2023-06-28] MEDS: FAMOTIDINE 20 MG TAB PO SCH (09:14)
[2023-06-28] MEDS: PIPERACILLIN-TAZOBACTAM 3.375 GM in SODIUM CHLORIDE 0.9% 100 ML IVPB SCH ×3 (09:14→23:49)
[2023-06-28] MEDS: NON FORMULARY DRUG (Mirabegron [Myrbetriq] 25 MG Tab.Er.24h) PO SCH (09:15)
[2023-06-28 10:15] LABS: Basophils # (A) 0.06 X 10*3/uL (0.00-0.10); Eosinophils % (A) 3.3 %; HCT 35.8 % (37.2-46.3); HGB 11.5 g/dL (12.0-15.0); Lymphocytes # (A) 1.49 X 10*3/uL (0.90-5.00); Lymphocytes % (A) 24.2 %; MCH 31.3 pg (27.0-32.0); MCHC 32.1 g/dL (32.0-37.0); MCV 97.5 FL (80.0-97.0); Mean Platelet Volume 10.1 FL (9.5-12.2); Monocytes # (A) 0.95 X 10*3/uL (0.20-1.00); Monocytes % (A) 15.4 %; NRBC Per 100 WBC 0 X 10*3/uL (0.00-0.01); Neutrophils # (A) 3.41 X 10*3/uL (1.80-7.70); Neutrophils % (A) 55.4 %; Platelet Count 389 X 10*3/uL (140-440); RBC 3.67 X 10*6/uL (4.10-5.20); RDW 13.6 % (11.5-14.5); WBC 6.15 X 10*3/uL (4.50-10.00)
[2023-06-28 10:16] LABS: ALT 23 U/L (8-44); AST 15 U/L (13-35); Albumin 3.4 g/dL (3.8-4.9); Alkaline Phosphatase 80 U/L (41-126); BUN/Creat Ratio <7.00 Ratio (12.00-20.00); Blood Urea Nitrogen <3.5 mg/dL (9.0-27.0); Calcium 9.7 mg/dL (8.7-10.3); Chloride 106 mmol/L (96-109); Glucose 97 mg/dL (70-110); Sodium 140 mmol/L (135-145); Total Bilirubin 0.4 mg/dL (0.3-1.2); Total Protein 5.4 g/dL (6.2-8.2)
[2023-06-28] MEDS: ONDANSETRON 4 MG/2 ML VIAL IVP PRN (10:36)
--- NOTE | 2023-06-28 10:38 | P.PN ---
Subjective Progress Note Date: 06/28/23 Fatuma Ramirez, is an 88-year-old female who presented to [facility] emergency room after being found on the floor in her residence with evidence of vomiting and altered mental status. She was evaluated in the emergency room vital examination on presentation revealed a temperature of 97.7 pulse 81 respiration 18 and blood pressure 109/79 pulse ox 99% on room air Laboratory data reveals a white blood count of 10.9 hemoglobin 13.8 platelet count 314 9 BUN 10 creatinine 0.29 Testing in the emergency room revealed computed tomography scan of the brain and the cervical spine revealed no acute intracranial process nonspecific white matter changes and no evidence of cervical spine fracture Patient was admitted to medical floor for further evaluation and treatment. After arriving to the floor patient was having significant pain in the right hip area and the lumbar spine area x-rays were done and no fracture was evident however there was evidence of dilated bowel loops computed tomography scan of the abdomen and pelvis was ordered and surgical consultation was requested. On 06/19/2023 patient was seen and examined on the medical floor she is somnolent arousable in no apparent distress, yesterday she underwent laparotomy with lysis of adhesions and repair of right obturator hernia with mesh by Dr. Awad, this morning patient pulled out her NG tube, vital exam reveals a tem perature of 97.7 pulse 104 respiration 18 and blood pressure 122/65 pulse ox 97% on room air laboratory data reveals a white blood count of 17.8 hemoglobin 13.2 platelet count 353 sodium 137 potassium 3.3 chloride 104 CO2 24 BUN 25 creatinine 0.6 IV fluid was increased to 100 mL/h we'll continue to monitor. On 06/20/2023 patient was seen by Dr. Monae Patient returns 88-year-old female is admitted to the hospital for altered mental status and found to have obturator hernia which was repaired. Postoperatively patient was removed her NG tube patient is remains nothing by mouth does have bowel sounds in move her bowel yet. Patient is on both diuretics and IV fluids both of which will be discontinued. If patient is not started on liquid diet by surgery today or start her on gentle hydration that is 50 mL of normal saline today. Patient is alert and oriented 2 has occasional episodes of confusion appears to have some baseline dementia. Patient has leukocytosis which is improving patient is on Zosyn at this time. Constitutional: Denied any fatigue denied any fever. Cardio vascular: denied any chest pain, palpitations Gastrointestinal denied any nausea vomiting Pulmonary: Denied any shortness of breath cough Neurologic denied any new focal deficits 06/21/2023 Patient evaluated today sitting up in the chair family at the bedside. Postoperative obturator hernia repair. Patient reports no BM yet however has reported passing some flatus. She has been advanced to clear liquid diet and tolerating. No nausea or vomiting. Fluids running at D5 1/2 normal saline with potassium. Can decrease rate to 50 mls/hr. White count normalized. Potassium 3.3 today. On 06/22/2023 patient was seen and examined on the medical floor she is alert and oriented 3 in no apparent distress she was complaining of nausea otherwise she denies any complaints there is no fever or chills no headache or dizziness no chest pain no shortness of breath no abdominal pain no diarrhea and no urinary symptoms. On 06/23/2023 patient was seen on the medical floor today she is more confused and less alert she has not been tolerating clear liquid diet she was evaluated by surgery and a repeat x-ray of the abdomen was ordered. Otherwise no complaints per patient or caregiver at the bedside. On 06/24/2023 patient was seen and examined on the medical floor she is alert and oriented today she stated that she had 2 bowel movements today, there is no fever or chills no headache or dizziness no chest pain no shortness of breath no cough no nausea or vomiting no abdominal pain no diarrhea and no urinary symptoms. On 06/25/2023 patient was seen and examined on the medical floor she is alert and oriented 3 in no apparent distress there is no fever or chills no headache or dizziness no chest pain no shortness of breath no cough no nausea or vomiting no abdominal pain no diarrhea and no urinary symptoms. She feels better today she is tolerating clear liquid diet. On 06/26/2023 patient is alert and oriented 3. Patient tolerating clear liquid diet. Patient denies chest pain or shortness of breath. Patient denies nausea vomiting or diarrhea. Patient denies any urinary burning or frequency. Current vital signs temp 98.3, heart rate 86, respiratory rate 16, blood pressure 153/78 with a pulse ox of 94% On 06/27/2023 patient was seen and examined on the medical floor she is alert and oriented 3 in no apparent distress there is no fever or chills no headache or dizziness no chest pain no shortness of breath no cough no nausea or vomiting no abdominal pain no diarrhea and no urinary symptoms. She is tolerating clear liquid diet well and having bowel movement, will continue to advance diet slowly and increase activity. On 06/28/2023 patient's alert and oriented 3. Patient complaining of some nausea at this time diet per surgical services yesterday. Discussed with nursing staff to make sure surgical services are aware. Current vital signs temp 95, heart rate 94, respiratory rate 16, blood pressure 162/74 with a pulse ox of 96% on room air Objective - Vital Signs Vital signs: Vital Signs Temp 98.5 F 06/28/23 07:35 Pulse 94 06/28/23 07:35 Resp 16 06/28/23 07:35 BP 162/74 06/28/23 07:35 Pulse Ox 96 06/28/23 07:35 FiO2 Intake & Output 06/27/23 06/28/23 06/28/23 18:59 06:59 18:59 Intake Total 590 820 Balance 590 820 Intake: Intake, IV Titration 700 Amount D5-0.45% NaCl with KCl 600 20Meq/l 1,000 ml @ 50 mls /hr IV .Q20H [facility] Rx#: [id number] Piperacillin-Tazobactam 3 100 .375 gm In Sodium Chloride 0.9% 100 ml @ 25 mls/hr IVPB Q8HR [facility] Rx# :[id number] Oral 590 120 Other: Voiding Method Bedside Commode Bedside Commode Diaper Diaper Incontinent Incontinent # Voids 1 1 - Exam In general patient is alert and oriented x 3 in no distress HEENT head normocephalic and atraumatic Neck is supple no JVD no goiter no lymphadenopathy no carotid bruit Chest examination is clear to auscultation no crackles no wheezing Cardiac exam reveals regular heart sounds S1 and S2 no gallops no murmurs Abdomen is soft nontender no organomegaly with normal bowel sounds Extremity exam reveals no edema no cyanosis or clubbing Neurological examination reveals no gross focal deficits - Labs CBC & Chem 7: 06/28/23 04:38 06/28/23 04:38 Labs: Abnormal Lab Results - Last 24 Hours (Table) 06/27/23 06/27/23 06/28/23 Range/Units 04:32 04:32 04:38 RBC 3.55 L 3.67 L (4.10-5.20) X 10*6/uL Hgb 11.2 L 11.5 L (12.0-15.0) g/dL Hct 34.7 L 35.8 L (37.2-46.3) % MCV 97.7 H 97.5 H (80.0-97.0) FL Monocytes # 1.06 H (0.20-1.00) X 10*3/uL BUN <3.5 L (9.0-27.0) mg/dL Creatinine 0.5 L (0.6-1.5) mg/dL BUN/Creatinine Ratio <7.00 L (12.00-20.00) Ratio Total Protein 5.3 L (6.2-8.2) g/dL Albumin 3.3 L (3.8-4.9) g/dL 06/28/23 Range/Units 04:38 RBC (4.10-5.20) X 10*6/uL Hgb (12.0-15.0) g/dL Hct (37.2-46.3) % MCV (80.0-97.0) FL Monocytes # (0.20-1.00) X 10*3/uL BUN <3.5 L (9.0-27.0) mg/dL Creatinine 0.5 L (0.6-1.5) mg/dL BUN/Creatinine Ratio <7.00 L (12.00-20.00) Ratio Total Protein 5.4 L (6.2-8.2) g/dL Albumin 3.4 L (3.8-4.9) g/dL Assessment and Plan Assessment: Mental status changes Nausea and vomiting Fall at home Evidence of right obturator canal hernia with small bowel obstruction. Status post surgical repair postop day 6 Recent admission for urinary tract infection with sepsis Underlying history of hypertension Underlying history of hyperlipidemia Underlying history of gastroesophageal reflux disease This time patient is admitted to medical floor Maintained on clear liquid diet Maintained on IV Zosyn Repeat labs ordered PT OT and drug abuse social worker consulted
--- NOTE | 2023-06-28 13:01 | P.PN ---
Subjective Progress Note Date: 06/28/23 Patient is hard of hearing. Family at bedside and reports increased nausea. Patient is on full liquids and barely tolerated her full liquid tray. She is underweight, BMI 13.7. She denies abdominal pain. She is on multiple anti-emetics. Plan to adjust diet to low sugar, lactulose free. Scheduled zofran advised. Objective - Vital Signs Vital signs: Vital Signs Temp 98.5 F 06/28/23 07:35 Pulse 94 06/28/23 07:35 Resp 16 06/28/23 07:35 BP 162/74 06/28/23 07:35 Pulse Ox 96 06/28/23 07:35 FiO2 Intake & Output 06/27/23 06/28/23 06/28/23 18:59 06:59 18:59 Intake Total 590 820 Balance 590 820 Intake: Intake, IV Titration 700 Amount D5-0.45% NaCl with KCl 600 20Meq/l 1,000 ml @ 50 mls /hr IV .Q20H [facility] Rx#: [id number] Piperacillin-Tazobactam 3 100 .375 gm In Sodium Chloride 0.9% 100 ml @ 25 mls/hr IVPB Q8HR [facility] Rx# :[id number] Oral 590 120 Other: Voiding Method Bedside Commode Bedside Commode Bedside Commode Diaper Diaper Diaper Incontinent Incontinent Incontinent # Voids 1 1 - Labs CBC & Chem 7: 06/28/23 04:38 06/28/23 04:38 Labs: Abnormal Lab Results - Last 24 Hours (Table) 06/28/23 06/28/23 Range/Units 04:38 04:38 RBC 3.67 L (4.10-5.20) X 10*6/uL Hgb 11.5 L (12.0-15.0) g/dL Hct 35.8 L (37.2-46.3) % MCV 97.5 H (80.0-97.0) FL BUN <3.5 L (9.0-27.0) mg/dL Creatinine 0.5 L (0.6-1.5) mg/dL BUN/Creatinine Ratio <7.00 L (12.00-20.00) Ratio Total Protein 5.4 L (6.2-8.2) g/dL Albumin 3.4 L (3.8-4.9) g/dL
[2023-06-28] MEDS: ONDANSETRON 4 MG/2 ML VIAL IVP SCH ×3 (14:15→23:48)
[2023-06-28] MEDS: LATANOPROST 0.005% OPHTH DROPS 2.5 ML BTL BOTH EYES SCH (20:28)
[2023-06-29] MEDS: METOCLOPRAMIDE 5 MG/ML 2 ML VIAL IVP SCH ×4 (03:57→20:43)
[2023-06-29] MEDS: D5-0.45% NACL WITH KCL 20MEQ/L 1,000 ML IV SCH (06:05)
[2023-06-29] MEDS: ONDANSETRON 4 MG/2 ML VIAL IVP SCH ×4 (06:05→23:39)
[2023-06-29] MEDS: LACTULOSE 20 GM/30 ML CUP PO SCH (08:21)
[2023-06-29] MEDS: PIPERACILLIN-TAZOBACTAM 3.375 GM in SODIUM CHLORIDE 0.9% 100 ML IVPB SCH ×3 (08:21→23:39)
[2023-06-29] MEDS: ENOXAPARIN 40 MG/0.4 ML SYRINGE SQ SCH (08:21)
[2023-06-29] MEDS: FAMOTIDINE 20 MG TAB PO SCH (08:21)
[2023-06-29] MEDS: NON FORMULARY DRUG (Mirabegron [Myrbetriq] 25 MG Tab.Er.24h) PO SCH (08:22)
[2023-06-29] MEDS: BRIMONIDINE TARTRATE 0.2% DROPS 5 ML BTL BOTH EYES SCH ×2 (08:22→20:43)
[2023-06-29] MEDS: bisacodyL 10 MG SUPP RECTAL SCH (08:22)
[2023-06-29 11:00] LABS: Basophils # (A) 0.07 X 10*3/uL (0.00-0.10); Basophils % (A) 1.2 %; Eosinophils # (A) 0.23 X 10*3/uL (0.04-0.35); HCT 35.2 % (37.2-46.3); HGB 11.2 g/dL (12.0-15.0); Lymphocytes # (A) 1.19 X 10*3/uL (0.90-5.00); Lymphocytes % (A) 20.7 %; MCH 31.6 pg (27.0-32.0); MCHC 31.8 g/dL (32.0-37.0); MCV 99.4 FL (80.0-97.0); Mean Platelet Volume 9.9 FL (9.5-12.2); Monocytes # (A) 0.86 X 10*3/uL (0.20-1.00); NRBC Per 100 WBC 0 X 10*3/uL (0.00-0.01); Neutrophils # (A) 3.37 X 10*3/uL (1.80-7.70); Neutrophils % (A) 58.8 %; Platelet Count 358 X 10*3/uL (140-440); RBC 3.54 X 10*6/uL (4.10-5.20); RDW 13.5 % (11.5-14.5); WBC 5.74 X 10*3/uL (4.50-10.00)
[2023-06-29 11:15] LABS: BUN/Creat Ratio 8.83 Ratio (12.00-20.00); Blood Urea Nitrogen 5.3 mg/dL (9.0-27.0); Chloride 104 mmol/L (96-109); Glucose 88 mg/dL (70-110); Potassium 4.1 mmol/L (3.5-5.5); Sodium 137 mmol/L (135-145)
[2023-06-29 11:16] LABS: ALT 20 U/L (8-44); AST 11 U/L (13-35); Albumin 3.3 g/dL (3.8-4.9); Albumin/Globulin Ratio 1.65 Ratio (1.60-3.17); Alkaline Phosphatase 74 U/L (41-126); Calcium 9.5 mg/dL (8.7-10.3); Carbon Dioxide 25.9 mmol/L (21.6-31.8); Total Bilirubin 0.5 mg/dL (0.3-1.2); Total Protein 5.3 g/dL (6.2-8.2)
--- NOTE | 2023-06-29 12:31 | P.PN ---
Subjective Progress Note Date: 06/29/23 CHIEF COMPLAINT: Small bowel obstruction HISTORY OF PRESENT ILLNESS: Patient is postop day #11 status post laparotomy with lysis of adhesions and repair of right obturator hernia with mesh. Patient is sitting up at bedside chair. She denies any abdominal pain. Patient a bowel movement yesterday. Her nausea has improved. No vomiting. Afebrile. WBC 5.74 Hgb 11.[address] Teixeira is covering for Dr. Awad PHYSICAL EXAM: VITAL SIGNS: Reviewed. GENERAL: Well-developed in no acute distress. ABDOMEN: Soft. Nondistended. Nontender. Incisional dressing dry and intact. Few small areas of saturation noted on dressing NEUROLOGIC: Awake and alert. Answering questions appropriately. hard of hearing ASSESSMENT: 1. Small bowel obstruction secondary to incarcerated right obturator hernia status post laparotomy with lysis of adhesions and repair of right obturator hernia with mesh 2. Postoperative ileus, expected finding. Resolved PLAN: -Remove surgical dressing -Patient can shower -Continue Full liquids -Continue IV Reglan, duplex suppositories and lactulose -Encouraged patient to increase activity level and work with physical therapy -Continue antiemetics as needed -Continue pain management as needed -Continue antibiotics -Encouraged patient to use incentive spirometer -DVT prophylaxis Lovenox Physician Child Caregiver Private Home note has been reviewed by physician. Signing provider agrees with the documented findings, assessment, and plan of care. Objective - Vital Signs Vital signs: Vital Signs Temp 98.5 F 06/29/23 07:10 Pulse 85 06/29/23 07:10 Resp 15 06/29/23 07:10 BP 135/64 06/29/23 07:10 Pulse Ox 98 06/29/23 07:10 FiO2 Intake & Output 06/28/23 06/29/23 06/29/23 18:59 06:59 18:59 Other: Voiding Method Bedside Commode Bedside Commode Diaper Diaper Incontinent Incontinent # Voids 1 1 # Bowel Movements 1 - Labs CBC & Chem 7: 06/29/23 06:35 06/29/23 06:35 Labs: Abnormal Lab Results - Last 24 Hours (Table) 06/28/23 06/28/23 Range/Units 04:38 04:38 RBC 3.67 L (4.10-5.20) X 10*6/uL Hgb 11.5 L (12.0-15.0) g/dL Hct 35.8 L (37.2-46.3) % MCV 97.5 H (80.0-97.0) FL BUN <3.5 L (9.0-27.0) mg/dL Creatinine 0.5 L (0.6-1.5) mg/dL BUN/Creatinine Ratio <7.00 L (12.00-20.00) Ratio Total Protein 5.4 L (6.2-8.2) g/dL Albumin 3.4 L (3.8-4.9) g/dL
--- NOTE | 2023-06-29 17:44 | P.PN ---
Subjective Progress Note Date: 06/29/23 Fatuma Ramirez, is an 88-year-old female who presented to [facility] emergency room after being found on the floor in her residence with evidence of vomiting and altered mental status. She was evaluated in the emergency room vital examination on presentation revealed a temperature of 97.7 pulse 81 respiration 18 and blood pressure 109/79 pulse ox 99% on room air Laboratory data reveals a white blood count of 10.9 hemoglobin 13.8 platelet count 314 9 BUN 10 creatinine 0.29 Testing in the emergency room revealed computed tomography scan of the brain and the cervical spine revealed no acute intracranial process nonspecific white matter changes and no evidence of cervical spine fracture Patient was admitted to medical floor for further evaluation and treatment. After arriving to the floor patient was having significant pain in the right hip area and the lumbar spine area x-rays were done and no fracture was evident however there was evidence of dilated bowel loops computed tomography scan of the abdomen and pelvis was ordered and surgical consultation was requested. On 06/19/2023 patient was seen and examined on the medical floor she is somnolent arousable in no apparent distress, yesterday she underwent laparotomy with lysis of adhesions and repair of right obturator hernia with mesh by Dr. Awad, this morning patient pulled out her NG tube, vital exam reveals a t emperature of 97.7 pulse 104 respiration 18 and blood pressure 122/65 pulse ox 97% on room air laboratory data reveals a white blood count of 17.8 hemoglobin 13.2 platelet count 353 sodium 137 potassium 3.3 chloride 104 CO2 24 BUN 25 creatinine 0.6 IV fluid was increased to 100 mL/h we'll continue to monitor. On 06/20/2023 patient was seen by Dr. Monae Patient returns 88-year-old female is admitted to the hospital for altered mental status and found to have obturator hernia which was repaired. Postoperatively patient was removed her NG tube patient is remains nothing by mouth does have bowel sounds in move her bowel yet. Patient is on both diuretics and IV fluids both of which will be discontinued. If patient is not started on liquid diet by surgery today or start her on gentle hydration that is 50 mL of normal saline today. Patient is alert and oriented 2 has occasional episodes of confusion appears to have some baseline dementia. Patient has leukocytosis which is improving patient is on Zosyn at this time. Constitutional: Denied any fatigue denied any fever. Cardio vascular: denied any chest pain, palpitations Gastrointestinal denied any nausea vomiting Pulmonary: Denied any shortness of breath cough Neurologic denied any new focal deficits 06/21/2023 Patient evaluated today sitting up in the chair family at the bedside. Postoperative obturator hernia repair. Patient reports no BM yet however has reported passing some flatus. She has been advanced to clear liquid diet and tolerating. No nausea or vomiting. Fluids running at D5 1/2 normal saline with potassium. Can decrease rate to 50 mls/hr. White count normalized. Potassium 3.3 today. On 06/22/2023 patient was seen and examined on the medical floor she is alert and oriented 3 in no apparent distress she was complaining of nausea otherwise she denies any complaints there is no fever or chills no headache or dizziness no chest pain no shortness of breath no abdominal pain no diarrhea and no urinary symptoms. On 06/23/2023 patient was seen on the medical floor today she is more confused and less alert she has not been tolerating clear liquid diet she was evaluated by surgery and a repeat x-ray of the abdomen was ordered. Otherwise no complaints per patient or caregiver at the bedside. On 06/24/2023 patient was seen and examined on the medical floor she is alert and oriented today she stated that she had 2 bowel movements today, there is no fever or chills no headache or dizziness no chest pain no shortness of breath no cough no nausea or vomiting no abdominal pain no diarrhea and no urinary symptoms. On 06/25/2023 patient was seen and examined on the medical floor she is alert and oriented 3 in no apparent distress there is no fever or chills no headache or dizziness no chest pain no shortness of breath no cough no nausea or vomiting no abdominal pain no diarrhea and no urinary symptoms. She feels better today she is tolerating clear liquid diet. On 06/26/2023 patient is alert and oriented 3. Patient tolerating clear liquid diet. Patient denies chest pain or shortness of breath. Patient denies nausea vomiting or diarrhea. Patient denies any urinary burning or frequency. Current vital signs temp 98.3, heart rate 86, respiratory rate 16, blood pressure 153/78 with a pulse ox of 94% On 06/27/2023 patient was seen and examined on the medical floor she is alert and oriented 3 in no apparent distress there is no fever or chills no headache or dizziness no chest pain no shortness of breath no cough no nausea or vomiting no abdominal pain no diarrhea and no urinary symptoms. She is tolerating clear liquid diet well and having bowel movement, will continue to advance diet slowly and increase activity. On 06/28/2023 patient's alert and oriented 3. Patient complaining of some nausea at this time diet per surgical services yesterday. Discussed with oscar sanchez staff to make sure surgical services are aware. Current vital signs temp 95, heart rate 94, respiratory rate 16, blood pressure 162/74 with a pulse ox of 96% on room air On 06/29/2023 patient was seen and examined on the medical floor she is alert and oriented 3 in no apparent distress there is no fever or chills no headache or dizziness no chest pain no shortness of breath no cough no nausea or vomiting no abdominal pain no diarrhea and no urinary symptoms. She is tolerating clear liquid diet well and having bowel movement, will continue to advance diet slowly and increase activity, possible transfer to rehab in the next 1-2 days. Objective - Vital Signs Vital signs: Vital Signs Temp 98.5 F 06/29/23 07:10 Pulse 85 06/29/23 07:10 Resp 15 06/29/23 07:10 BP 135/64 06/29/23 07:10 Pulse Ox 98 06/29/23 07:10 FiO2 Intake & Output 06/28/23 06/29/23 06/29/23 18:59 06:59 18:59 Other: Voiding Method Bedside Commode Bedside Commode Diaper Diaper Incontinent Incontinent # Voids 1 1 # Bowel Movements 1 - Exam In general patient is alert and oriented x 3 in no distress HEENT head normocephalic and atraumatic Neck is supple no JVD no goiter no lymphadenopathy no carotid bruit Chest examination is clear to auscultation no crackles no wheezing Cardiac exam reveals regular heart sounds S1 and S2 no gallops no murmurs Abdomen is soft nontender no organomegaly with normal bowel sounds Extremity exam reveals no edema no cyanosis or clubbing Neurological examination reveals no gross focal deficits - Labs CBC & Chem 7: 06/29/23 06:35 06/29/23 06:35 Labs: Abnormal Lab Results - Last 24 Hours (Table) 11/12/23 11/12/23 Range/Units 04:38 04:38 RBC 3.67 L (4.10-5.20) X 10*6/uL Hgb 11.5 L (12.0-15.0) g/dL Hct 35.8 L (37.2-46.3) % MCV 97.5 H (80.0-97.0) FL BUN <3.5 L (9.0-27.0) mg/dL Creatinine 0.5 L (0.6-1.5) mg/dL BUN/Creatinine Ratio <7.00 L (12.00-20.00) Ratio Total Protein 5.4 L (6.2-8.2) g/dL Albumin 3.4 L (3.8-4.9) g/dL Assessment and Plan Plan: Mental status changes Nausea and vomiting Fall at home Evidence of right obturator canal hernia with small bowel obstruction. Status post surgical repair postop day 6 Recent admission for urinary tract infection with sepsis Underlying history of hypertension Underlying history of hyperlipidemia Underlying history of gastroesophageal reflux disease This time patient is admitted to medical floor Maintained on clear liquid diet Maintained on IV Zosyn Repeat labs ordered PT OT and transition social worker consulted
[2023-06-29] MEDS: LATANOPROST 0.005% OPHTH DROPS 2.5 ML BTL BOTH EYES SCH (20:44)
[2023-06-30] MEDS: METOCLOPRAMIDE 5 MG/ML 2 ML VIAL IVP SCH ×4 (03:53→21:31)
[2023-06-30] MEDS: ONDANSETRON 4 MG/2 ML VIAL IVP SCH ×3 (05:43→17:30)
[2023-06-30] MEDS: PIPERACILLIN-TAZOBACTAM 3.375 GM in SODIUM CHLORIDE 0.9% 100 ML IVPB SCH ×2 (09:01→16:35)
--- NOTE | 2023-06-30 09:33 | P.PN ---
Subjective Progress Note Date: 06/30/23 Fatuma Ramirez, is an 88-year-old female who presented to [facility] emergency room after being found on the floor in her residence with evidence of vomiting and altered mental status. She was evaluated in the emergency room vital examination on presentation revealed a temperature of 97.7 pulse 81 respiration 18 and blood pressure 109/79 pulse ox 99% on room air Laboratory data reveals a white blood count of 10.9 hemoglobin 13.8 platelet count 314 9 BUN 10 creatinine 0.29 Testing in the emergency room revealed computed tomography scan of the brain and the cervical spine revealed no acute intracranial process nonspecific white matter changes and no evidence of cervical spine fracture Patient was admitted to medical floor for further evaluation and treatment. After arriving to the floor patient was having significant pain in the right hip area and the lumbar spine area x-rays were done and no fracture was evident however there was evidence of dilated bowel loops computed tomography scan of the abdomen and pelvis was ordered and surgical consultation was requested. On 06/19/2023 patient was seen and examined on the medical floor she is somnolent arousable in no apparent distress, yesterday she underwent laparotomy with lysis of adhesions and repair of right obturator hernia with mesh by Dr. Awad, this morning patient pulled out her NG tube, vital exam reveals a tem perature of 97.7 pulse 104 respiration 18 and blood pressure 122/65 pulse ox 97% on room air laboratory data reveals a white blood count of 17.8 hemoglobin 13.2 platelet count 353 sodium 137 potassium 3.3 chloride 104 CO2 24 BUN 25 creatinine 0.6 IV fluid was increased to 100 mL/h we'll continue to monitor. On 06/20/2023 patient was seen by Dr. Monae Patient returns 88-year-old female is admitted to the hospital for altered mental status and found to have obturator hernia which was repaired. Postoperatively patient was removed her NG tube patient is remains nothing by mouth does have bowel sounds in move her bowel yet. Patient is on both diuretics and IV fluids both of which will be discontinued. If patient is not started on liquid diet by surgery today or start her on gentle hydration that is 50 mL of normal saline today. Patient is alert and oriented 2 has occasional episodes of confusion appears to have some baseline dementia. Patient has leukocytosis which is improving patient is on Zosyn at this time. Constitutional: Denied any fatigue denied any fever. Cardio vascular: denied any chest pain, palpitations Gastrointestinal denied any nausea vomiting Pulmonary: Denied any shortness of breath cough Neurologic denied any new focal deficits 06/21/2023 Patient evaluated today sitting up in the chair family at the bedside. Postoperative obturator hernia repair. Patient reports no BM yet however has reported passing some flatus. She has been advanced to clear liquid diet and tolerating. No nausea or vomiting. Fluids running at D5 1/2 normal saline with potassium. Can decrease rate to 50 mls/hr. White count normalized. Potassium 3.3 today. On 06/22/2023 patient was seen and examined on the medical floor she is alert and oriented 3 in no apparent distress she was complaining of nausea otherwise she denies any complaints there is no fever or chills no headache or dizziness no chest pain no shortness of breath no abdominal pain no diarrhea and no urinary symptoms. On 06/23/2023 patient was seen on the medical floor today she is more confused and less alert she has not been tolerating clear liquid diet she was evaluated by surgery and a repeat x-ray of the abdomen was ordered. Otherwise no complaints per patient or caregiver at the bedside. On 06/24/2023 patient was seen and examined on the medical floor she is alert and oriented today she stated that she had 2 bowel movements today, there is no fever or chills no headache or dizziness no chest pain no shortness of breath no cough no nausea or vomiting no abdominal pain no diarrhea and no urinary symptoms. On 06/25/2023 patient was seen and examined on the medical floor she is alert and oriented 3 in no apparent distress there is no fever or chills no headache or dizziness no chest pain no shortness of breath no cough no nausea or vomiting no abdominal pain no diarrhea and no urinary symptoms. She feels better today she is tolerating clear liquid diet. On 06/26/2023 patient is alert and oriented 3. Patient tolerating clear liquid diet. Patient denies chest pain or shortness of breath. Patient denies nausea vomiting or diarrhea. Patient denies any urinary burning or frequency. Current vital signs temp 98.3, heart rate 86, respiratory rate 16, blood pressure 153/78 with a pulse ox of 94% On 06/27/2023 patient was seen and examined on the medical floor she is alert and oriented 3 in no apparent distress there is no fever or chills no headache or dizziness no chest pain no shortness of breath no cough no nausea or vomiting no abdominal pain no diarrhea and no urinary symptoms. She is tolerating clear liquid diet well and having bowel movement, will continue to advance diet slowly and increase activity. On 06/28/2023 patient's alert and oriented 3. Patient complaining of some nausea at this time diet per surgical services yesterday. Discussed with nursing staff to make sure surgical services are aware. Current vital signs temp 95, heart rate 94, respiratory rate 16, blood pressure 162/74 with a pulse ox of 96% on room air On 06/29/2023 patient was seen and examined on the medical floor she is alert and oriented 3 in no apparent distress there is no fever or chills no headache or dizziness no chest pain no shortness of breath no cough no nausea or vomiting no abdominal pain no diarrhea and no urinary symptoms. She is tolerating clear liquid diet well and having bowel movement, will continue to advance diet slowly and increase activity, possible transfer to rehab in the next 1-2 days. On 06/30/2023 3 patient's alert and oriented 3. Diet will be advanced per surgical services discharge planning to medical oncology anticipate possible discharge to facility tomorrow 07/01/2023. Current vital signs temp 98.3, heart rate 92, respiratory rate 15, blood pressure 124/56 with pulse ox of 96% on room air Objective - Vital Signs Vital signs: Vital Signs Temp 98.3 F 06/30/23 07:51 Pulse 92 06/30/23 07:51 Resp 15 06/30/23 07:51 BP 124/56 06/30/23 07:51 Pulse Ox 96 06/30/23 07:51 FiO2 Intake & Output 06/29/23 06/30/23 06/30/23 18:59 06:59 18:59 Output Total 2 Balance -2 Weight 36.3 kg Output: Urine/Stool Mix 2 Other: Voiding Method Bedside Commode Bedside Commode Bedside Commode Diaper Diaper Diaper Incontinent Incontinent Incontinent # Voids 1 2 # Bowel Movements 1 - Exam In general patient is alert and oriented x 3 in no distress HEENT head normocephalic and atraumatic Neck is supple no JVD no goiter no lymphadenopathy no carotid bruit Chest examination is clear to auscultation no crackles no wheezing Cardiac exam reveals regular heart sounds S1 and S2 no gallops no murmurs Abdomen is soft nontender no organomegaly with normal bowel sounds Extremity exam reveals no edema no cyanosis or clubbing Neurological examination reveals no gross focal deficits - Labs CBC & Chem 7: 06/29/23 06:35 06/29/23 06:35 Labs: Abnormal Lab Results - Last 24 Hours (Table) 06/29/23 06/29/23 Range/Units 06:35 06:35 RBC 3.54 L (4.10-5.20) X 10*6/uL Hgb 11.2 L (12.0-15.0) g/dL Hct 35.2 L (37.2-46.3) % MCV 99.4 H (80.0-97.0) FL MCHC 31.8 L (32.0-37.0) g/dL BUN 5.3 L (9.0-27.0) mg/dL BUN/Creatinine Ratio 8.83 L (12.00-20.00) Ratio AST 11 L (13-35) U/L Total Protein 5.3 L (6.2-8.2) g/dL Albumin 3.3 L (3.8-4.9) g/dL Assessment and Plan Assessment: Mental status changes Nausea and vomiting Fall at home Evidence of right obturator canal hernia with small bowel obstruction. Status post surgical repair postop day 6 Recent admission for urinary tract infection with sepsis Underlying history of hypertension Underlying history of hyperlipidemia Underlying history of gastroesophageal reflux disease This time patient is admitted to medical floor Maintained on clear liquid diet Maintained on IV Zosyn Repeat labs ordered PT OT and health and social care teacher consulted DC planning to [facility]
[2023-06-30] MEDS: NON FORMULARY DRUG (Mirabegron [Myrbetriq] 25 MG Tab.Er.24h) PO SCH (10:35)
[2023-06-30] MEDS: BRIMONIDINE TARTRATE 0.2% DROPS 5 ML BTL BOTH EYES SCH ×2 (10:44→21:31)
[2023-06-30] MEDS: ENOXAPARIN 40 MG/0.4 ML SYRINGE SQ SCH (10:44)
[2023-06-30] MEDS: FAMOTIDINE 20 MG TAB PO SCH (10:44)
[2023-06-30] MEDS: bisacodyL 10 MG SUPP RECTAL SCH (10:46)
[2023-06-30] MEDS: LACTULOSE 20 GM/30 ML CUP PO SCH (10:47)
--- NOTE | 2023-06-30 11:41 | P.PN ---
Subjective Progress Note Date: 06/30/23 CHIEF COMPLAINT: Small bowel obstruction HISTORY OF PRESENT ILLNESS: Patient is postop day #12 status post laparotomy with lysis of adhesions and repair of right obturator hernia with mesh. Patient lying in bed comfortably. Her pain is controlled. She did have a bowel movement. Denies any nausea or vomiting. Afebrile. WBC 5.74 Dr. Teixeira is covering for Dr. Awad PHYSICAL EXAM: VITAL SIGNS: Reviewed. GENERAL: Well-developed in no acute distress. ABDOMEN: Soft. Nondistended. Nontender. Incisional dressing dry and intact. Few small areas of saturation noted on dressing NEUROLOGIC: Awake and alert. Answering questions appropriately. hard of hearing ASSESSMENT: 1. Small bowel obstruction secondary to incarcerated right obturator hernia status post laparotomy with lysis of adhesions and repair of right obturator hernia with mesh 2. Postoperative ileus, expected finding. Resolved PLAN: -Advance diet to regular -Patient can be discharged from surgical standpoint if tolerating regular diet -Continue IV Reglan, duplex suppositories and lactulose while in hospital -Encouraged patient to increase activity level and work with physical therapy -Continue antiemetics as needed -Continue pain management as needed -Continue antibiotics while in hospital -Encouraged patient to use incentive spirometer -DVT prophylaxis Lovenox Physician Capacity Planner note has been reviewed by physician. Signing provider agrees with the documented findings, assessment, and plan of care. Objective - Vital Signs Vital signs: Vital Signs Temp 98.3 F 06/30/23 07:51 Pulse 92 06/30/23 07:51 Resp 15 06/30/23 07:51 BP 124/56 06/30/23 07:51 Pulse Ox 96 06/30/23 07:51 FiO2 Intake & Output 06/29/23 06/30/23 06/30/23 18:59 06:59 18:59 Output Total 2 Balance -2 Weight 36.3 kg Output: Urine/Stool Mix 2 Other: Voiding Method Bedside Commode Bedside Commode Bedside Commode Diaper Diaper Diaper Incontinent Incontinent Incontinent # Voids 1 2 # Bowel Movements 1 - Labs CBC & Chem 7: 06/29/23 06:35 06/29/23 06:35 Labs: Abnormal Lab Results - Last 24 Hours (Table) 06/29/23 06/29/23 Range/Units 06:35 06:35 RBC 3.54 L (4.10-5.20) X 10*6/uL Hgb 11.2 L (12.0-15.0) g/dL Hct 35.2 L (37.2-46.3) % MCV 99.4 H (80.0-97.0) FL MCHC 31.8 L (32.0-37.0) g/dL BUN 5.3 L (9.0-27.0) mg/dL BUN/Creatinine Ratio 8.83 L (12.00-20.00) Ratio AST 11 L (13-35) U/L Total Protein 5.3 L (6.2-8.2) g/dL Albumin 3.3 L (3.8-4.9) g/dL
--- NOTE | 2023-06-30 14:08 | CDI ---
Documentation Clarification Form Date: 06/30/2023 01:46:00 PM From: Zara Chambers RN, CCDS Admit Date: 06/17/2023 04:28:00 PM Patient Name: Fatuma Ramirez Visit Number: [id number] Discharge Date: ATTENTION: The Clinical Documentation Specialists (CDI) and [facility] Coding Staff appreciate your assistance in clarifying documentation. Please respond to the clarification below the line at the bottom and electronically sign. The CDI & [facility] Coding staff will review the response and follow-up if needed. Please note: Queries are made part of the Legal Health Record. If you have any questions, please contact the author of this message via ITS. Dr. Tanna Pedroza The Registered Dietitian assessment on 06/23-06/29 indicates this patient is underweight BMI 13.7 Based on this information and the findings below, is there an additional diagnosis that is clinically appropriate for this patient? 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 Current BMI: 13.7 Nutrition intake Poor 25-50% she complains of nausea requiring antiemetic. Physical appearance: Underweight, Thin built Height [address] Consult Assessment: Inadequate energy intake. Inability to consume sufficient energy r/t procedure NPO/Clear Liquid diet<of est. energy >/=5 days Outcome status not meet. Treatment: General /healthful diet Supplements: Ensure compact TID Monitor PO intake diet advancement Pepcid 40 MG PO Daily 06/19-06/30 Reglan 10 MG IVP 06/23 -06/29 Zofran 4 MG IVP Q 6 HRS 06/28-06/30 Is there an additional diagnosis that is clinically appropriate for this patient? [ ] Mild Protein-Calorie Malnutrition [ ] Moderate Protein-Calorie Malnutrition [ x ] Severe Protein-Calorie Malnutrition [ ] No additional diagnosis/Not clinically significant [ ] Other condition, please specify [ ] Unable to Determine (Template Last Revised: February 2023) MTDD
[2023-06-30] MEDS: LATANOPROST 0.005% OPHTH DROPS 2.5 ML BTL BOTH EYES SCH (21:31)
[2023-06-30] MEDS: D5-0.45% NACL WITH KCL 20MEQ/L 1,000 ML IV SCH ×2 (21:31)
[2023-07-01] MEDS: ONDANSETRON 4 MG/2 ML VIAL IVP SCH ×2 (00:29→06:22)
[2023-07-01] MEDS: PIPERACILLIN-TAZOBACTAM 3.375 GM in SODIUM CHLORIDE 0.9% 100 ML IVPB SCH ×2 (00:29→08:42)
[2023-07-01] MEDS: METOCLOPRAMIDE 5 MG/ML 2 ML VIAL IVP SCH ×2 (04:05→08:45)
[2023-07-01 07:36] VITALS: BP 149/63; PULSE 77; RESP 16; TEMP 98.5
[2023-07-01] MEDS: BRIMONIDINE TARTRATE 0.2% DROPS 5 ML BTL BOTH EYES SCH (08:42)
[2023-07-01] MEDS: bisacodyL 10 MG SUPP RECTAL SCH (08:43)
[2023-07-01] MEDS: LACTULOSE 20 GM/30 ML CUP PO SCH (08:44)
[2023-07-01] MEDS: FAMOTIDINE 20 MG TAB PO SCH (08:44)
[2023-07-01] MEDS: NON FORMULARY DRUG (Mirabegron [Myrbetriq] 25 MG Tab.Er.24h) PO SCH (08:45)
[2023-07-01] MEDS: ENOXAPARIN 40 MG/0.4 ML SYRINGE SQ SCH (08:45)
--- NOTE | 2023-07-01 10:36 | P.DS ---
Providers Date of admission: 06/17/23 16:28 Expected date of discharge: 07/01/23 Attending physician: Tanna Pedroza Consults: 06/18/23 14:17 Consult Physician Routine Consulting Provider: Moses Awad Reason/Comments: abd pain Do you want consulting provider notified?: Yes Primary care physician: Evette Allan Hospital Course: Discharge diagnosis Mental status changes Nausea and vomiting Fall at home Evidence of right obturator canal hernia with small bowel obstruction. Status post surgical repair postop day 6 Recent admission for urinary tract infection with sepsis Underlying history of hypertension Underlying history of hyperlipidemia Underlying history of gastroesophageal reflux disease Hospital course Fatuma Ramirez, is an 88-year-old female who presented to [facility] emergency room after being found on the floor in her residence with evidence of vomiting and altered mental status. She was evaluated in the emergency room vital examination on presentation revealed a temperature of 97.7 pulse 81 respiration 18 and blood pressure 109/79 pulse ox 99% on room air Laboratory data reveals a white blood count of 10.9 hemoglobin 13.8 platelet count 314 9 BUN 10 creatinine 0.29 Testing in the emergency room revealed computed tomography scan of the brain and the cervical spine revealed no acute intracranial process nonspecific white matter changes and no evidence of cervical spine fracture Patient was admitted to medical floor for further evaluation and treatment. Af ter arriving to the floor patient was having significant pain in the right hip area and the lumbar spine area x-rays were done and no fracture was evident however there was evidence of dilated bowel loops computed tomography scan of the abdomen and pelvis was ordered and surgical consultation was requested. On 06/19/2023 patient was seen and examined on the medical floor she is somnolent arousable in no apparent distress, yesterday she underwent laparotomy with lysis of adhesions and repair of right obturator hernia with mesh by Dr. Awad, this morning patient pulled out her NG tube, vital exam reveals a temperature of 97.7 pulse 104 respiration 18 and blood pressure 122/65 pulse ox 97% on room air laboratory data reveals a white blood count of 17.8 hemoglobin 13.2 platelet count 353 sodium 137 potassium 3.3 chloride 104 CO2 24 BUN 25 creatinine 0.6 IV fluid was increased to 100 mL/h we'll continue to monitor. On 06/20/2023 patient was seen by Dr. Monae Patient returns 88-year-old female is admitted to the hospital for altered mental status and found to have obturator hernia which was repaired. Postoperatively patient was removed her NG tube patient is remains nothing by mouth does have bowel sounds in move her bowel yet. Patient is on both diuretics and IV fluids both of which will be discontinued. If patient is not started on liquid diet by surgery today or start her on gentle hydration that is 50 mL of normal saline today. Patient is alert and oriented 2 has occasional episodes of confusion appears to have some baseline dementia. Patient has leukocytosis which is improving patient is on Zosyn at this time. Constitutional: Denied any fatigue denied any fever. Cardio vascular: denied any chest pain, palpitations Gastrointestinal denied any nausea vomiting Pulmonary: Denied any shortness of breath cough Neurologic denied any new focal deficits 06/21/2023 Patient evaluated today sitting up in the chair family at the bedside. Postoperative obturator hernia repair. Patient reports no BM yet however has reported passing some flatus. She has been advanced to clear liquid diet and tolerating. No nausea or vomiting. Fluids running at D5 1/2 normal saline with potassium. Can decrease rate to 50 mls/hr. White count normalized. Potassium 3.3 today. On 06/22/2023 patient was seen and examined on the medical floor she is alert and oriented 3 in no apparent distress she was complaining of nausea otherwise she denies any complaints there is no fever or chills no headache or dizziness no chest pain no shortness of breath no abdominal pain no diarrhea and no urinary symptoms. On 06/23/2023 patient was seen on the medical floor today she is more confused and less alert she has not been tolerating clear liquid diet she was evaluated by surgery and a repeat x-ray of the abdomen was ordered. Otherwise no complaints per patient or caregiver at the bedside. On 06/24/2023 patient was seen and examined on the medical floor she is alert and oriented today she stated that she had 2 bowel movements today, there is no fever or chills no headache or dizziness no chest pain no shortness of breath no cough no nausea or vomiting no abdominal pain no diarrhea and no urinary symptoms. On 06/25/2023 patient was seen and examined on the medical floor she is alert and oriented 3 in no apparent distress there is no fever or chills no headache or dizziness no chest pain no shortness of breath no cough no nausea or vomiting no abdominal pain no diarrhea and no urinary symptoms. She feels better today she is tolerating clear liquid diet. On 06/26/2023 patient is alert and oriented 3. Patient tolerating clear liquid diet. Patient denies chest pain or shortness of breath. Patient denies nausea vomiting or diarrhea. Patient denies any urinary burning or frequency. Current vital signs temp 98.3, heart rate 86, respiratory rate 16, blood pressure 153/78 with a pulse ox of 94% On 06/27/2023 patient was seen and examined on the medical floor she is alert and oriented 3 in no apparent distress there is no fever or chills no headache or dizziness no chest pain no shortness of breath no cough no nausea or vomiting no abdominal pain no diarrhea and no urinary symptoms. She is tolerating clear liquid diet well and having bowel movement, will continue to advance diet slowly and increase activity. On 06/28/2023 patient's alert and oriented 3. Patient complaining of some nausea at this time diet per surgical services yesterday. Discussed with nursing staff to make sure surgical services are aware. Current vital signs temp 95, heart rate 94, respiratory rate 16, blood pressure 162/74 with a pulse ox of 96% on room air On 06/29/2023 patient was seen and examined on the medical floor she is alert and oriented 3 in no apparent distress there is no fever or chills no headache or dizziness no chest pain no shortness of breath no cough no nausea or vomiting no abdominal pain no diarrhea and no urinary symptoms. She is tolerating clear liquid diet well and having bowel movement, will continue to advance diet slowly and increase activity, possible transfer to rehab in the next 1-2 days. On 06/30/2023 3 patient's alert and oriented 3. Diet will be advanced per surgical services discharge planning to medical oncology anticipate possible discharge to facility tomorrow 07/01/2023. Current vital signs temp 98.3, heart rate 92, respiratory rate 15, blood pressure 124/56 with pulse ox of 96% on room air on 07/01/2023 patient is alert and oriented 3 has been tolerating regular diet. Patient cleared for discharge from surgical standpoint. No need for antibiotics upon discharge patient will be DC'd to ECF facility at this time patient denies chest pain or shortness breath. Patient denies nausea vomiting diarrhea. Patient denies any urinary frequency Patient Condition at Discharge: Stable Plan - Discharge Summary Discharge Rx Participant: No New Discharge Prescriptions: New Lactulose [Cephulac] 20 gm PO DAILY ml bisacodyL [Dulcolax] 10 mg RECTAL DAILY suppositor Continue Famotidine [Pepcid] 40 mg PO DAILY Mirabegron [Myrbetriq] 25 mg PO DAILY Brimonidine Tartrate [Alphagan P 0.2% Ophth Soln] 1 drop BOTH EYES BID Latanoprost [Latanoprost 0.005%] 1 drop BOTH EYES HS Acetaminophen Tab [Tylenol] 650 mg PO Q6HR PRN tab PRN Reason: Mild Pain Or Fever > 100.5 Bumetanide [BUMEX] 0.5 mg PO DAILY Discontinued ALPRAZolam [Xanax] 0.25 mg PO BID PRN 3 Days #6 tab PRN Reason: Anxiety Discharge Medication List Brimonidine Tartrate [Alphagan P 0.2% Ophth Soln] 1 drop BOTH EYES BID 11/12/22 [History] Famotidine [Pepcid] 40 mg PO DAILY 11/12/22 [History] Latanoprost [Latanoprost 0.005%] 1 drop BOTH EYES HS 11/12/22 [History] Acetaminophen Tab [Tylenol] 650 mg PO Q6HR PRN tab 11/14/22 [Rx] Bumetanide [BUMEX] 0.5 mg PO DAILY 06/17/23 [History] Mirabegron [Myrbetriq] 25 mg PO DAILY 06/17/23 [History] Lactulose [Cephulac] 20 gm PO DAILY ml 07/01/23 [Rx] bisacodyL [Dulcolax] 10 mg RECTAL DAILY suppositor 07/01/23 [Rx] Follow up Appointment(s)/Referral(s): Evette Allan MD [Primary Care Provider] - 06/19/23 9:00 am Activity/Diet/Wound Care/Special Instructions: Activity as tolerated Diet regular, lactose-free Please order CBC and CMP within 7 days of arrival Discharge Disposition: TRANSFER TO [facility]/F
--- NOTE | 2023-07-01 13:13 | P.PN ---
Subjective Progress Note Date: 07/01/23 CHIEF COMPLAINT: Small bowel obstruction HISTORY OF PRESENT ILLNESS: Patient is postop day #13 status post laparotomy with lysis of adhesions and repair of right obturator hernia with mesh. Patient sitting up in bed comfortably. She reports having bowel movements. She's tolerating regular diet. Afebrile. Dr. Teixeira is covering for Dr. Awad PHYSICAL EXAM: VITAL SIGNS: Reviewed. GENERAL: Well-developed in no acute distress. ABDOMEN: Soft. Nondistended. Nontender. Incision clean dry and intact. Small swelling/hematoma noted at distal aspect of incision NEUROLOGIC: Awake and alert. Answering questions appropriately. hard of hearing ASSESSMENT: 1. Small bowel obstruction secondary to incarcerated right obturator hernia status post laparotomy with lysis of adhesions and repair of right obturator hernia with mesh 2. Postoperative ileus, expected finding. Resolved PLAN: -Patient can be discharged from surgical standpoint -No further antibiotics needed after discharge -Patient follow-up with Dr. Awad in the office in 1 week -Continue regular diet Physician Floor Installer note has been reviewed by physician. Signing provider agrees with the documented findings, assessment, and plan of care. Objective - Vital Signs Vital signs: Vital Signs Temp 98.5 F 07/01/23 07:25 Pulse 77 07/01/23 07:25 Resp 16 07/01/23 07:25 BP 149/63 07/01/23 07:25 Pulse Ox 95 07/01/23 07:25 FiO2 Intake & Output 06/30/23 07/01/23 07/01/23 18:59 06:59 18:59 Intake Total 240 Balance 240 Intake: Oral 240 Other: Voiding Method Bedside Commode Bedside Commode Bedside Commode Diaper Diaper Diaper Incontinent Incontinent Incontinent # Voids 2 1 - Labs CBC & Chem 7: 06/29/23 06:35 06/29/23 06:35
[2023-07-01 13:45] LABS: Basophils # (A) 0.08 X 10*3/uL (0.00-0.10); Basophils % (A) 1.2 %; Eosinophils % (A) 2.9 %; HCT 35.4 % (37.2-46.3); HGB 11.2 g/dL (12.0-15.0); Lymphocytes # (A) 1.06 X 10*3/uL (0.90-5.00); Lymphocytes % (A) 15.6 %; MCH 31.5 pg (27.0-32.0); MCHC 31.6 g/dL (32.0-37.0); MCV 99.7 FL (80.0-97.0); Mean Platelet Volume 10.5 FL (9.5-12.2); Monocytes # (A) 1.06 X 10*3/uL (0.20-1.00); Monocytes % (A) 15.6 %; NRBC Per 100 WBC 0 X 10*3/uL (0.00-0.01); Neutrophils # (A) 4.39 X 10*3/uL (1.80-7.70); Neutrophils % (A) 64.4 %; Platelet Count 364 X 10*3/uL (140-440); RBC 3.55 X 10*6/uL (4.10-5.20); RDW 13.5 % (11.5-14.5); WBC 6.81 X 10*3/uL (4.50-10.00)
[2023-07-01 14:15] LABS: ALT 16 U/L (8-44); AST 15 U/L (13-35); Albumin 3.2 g/dL (3.8-4.9); Alkaline Phosphatase 73 U/L (41-126); Blood Urea Nitrogen 8.7 mg/dL (9.0-27.0); Calcium 9.5 mg/dL (8.7-10.3); Carbon Dioxide 24.1 mmol/L (21.6-31.8); Chloride 106 mmol/L (96-109); Glucose 88 mg/dL (70-110); Potassium 4.5 mmol/L (3.5-5.5); Sodium 139 mmol/L (135-145); Total Bilirubin 0.4 mg/dL (0.3-1.2); Total Protein 5.2 g/dL (6.2-8.2)
== END 2023-07-01 12:20 | DRG 335 ==
LOC: EC 11:28 → 5NMEDONC 16:28
PROVIDERS: ADMIT Internal Medicine; ATTEND Internal Medicine
PROC: 0WUF0JZ Supplement Abdominal Wall with Synthetic Substitute, Open Approach (ICD-10-PCS; principal; 2023-06-18 11:00)
PROC: 0DN80ZZ Release Small Intestine, Open Approach (ICD-10-PCS; principal; 2023-06-18 11:00)
DX: K45.0 Other specified abdominal hernia with obstruction, without gangrene (principal); E43 Unspecified severe protein-calorie malnutrition; G93.41 Metabolic encephalopathy; Z68.1 Body mass index [BMI] 19.9 or less, adult; K56.7 Ileus, unspecified; K56.50 Intestinal adhesions [bands], unspecified as to partial versus complete obstruction; W19.XXXA Unspecified fall, initial encounter; H91.90 Unspecified hearing loss, unspecified ear; Y92.019 Unspecified place in single-family (private) house as the place of occurrence of the external cause; I10 Essential (primary) hypertension; K59.00 Constipation, unspecified; E78.5 Hyperlipidemia, unspecified; K21.9 Gastro-esophageal reflux disease without esophagitis; E87.6 Hypokalemia; Z66 Do not resuscitate; F03.90 Unspecified dementia, unspecified severity, without behavioral disturbance, psychotic disturbance, mood disturbance, and anxiety; M41.9 Scoliosis, unspecified; M51.36 Other intervertebral disc degeneration, lumbar region; Z79.899 Other long term (current) drug therapy; Z87.440 Personal history of urinary (tract) infections
CPT/HCPCS: 36415; 70450; 71046; 72100; 72125; 73502; 74019; 74177; 80048; 80053; 81001; 82550; 83735; 84132; 84484; 85025; 85027; 85610; 85730; 93005; 96361; 96374; 99285